=== PATIENT | female | born 1980 | race Caucasian/White ===

== ENCOUNTER 2022-12-07 11:35 | Emergency (ER) | payer OTHER, SELFPAY ==
[2022-12-07] VITALS (40 sets, daily range): BP systolic 130–189; BP diastolic 70–107; PULSE 87–105; RESP 7–25; TEMP 37.2; O2SAT 95–100; BMI 31.6
--- NOTE | 2022-12-07 12:06 | ED.NAVMDI1 ---
HPI - Nausea/Vomiting/Diarrhea General Chief complaint: Nausea/Vomiting/Diarrhea Stated complaint: NAUSEA Time Seen by Provider: 12/07/22 12:06 Source: patient Mode of arrival: Wheelchair Limitations: no limitations History of Present Illness HPI Narrative: This patient's here complaining and nausea starting at 5:30 this morning. She has not taken any medication for. She did stand a whole toe room last night with her son and her dog but she states that she is homeless. She missed about two or three days with of her routine meds because her life was in such chaos but she does have all of her meds. She has not checked her sugar recently. She's been very thirsty and hungry recently. She does not have any diarrhea. No other household members are ill. She did have a sandwich at work yesterday but didn't get ill until twenty-four hours later. Her son is not sick. She's not been running a fever. She is status post cholecystectomy. She has not had a fever that she is aware of. She did not have any medicine to take for the nausea. He does not use alcohol or any street drugs. No history of hepatitis or pancreatitis. Related Data Home Medications Medication Instructions Recorded Confirmed atorvastatin 80 mg tablet 80 mg PO BEDTIME 12/07/22 12/07/22 duloxetine 60 mg capsule,delayed 60 mg PO DAILY 12/07/22 12/07/22 release ergocalciferol (vitamin D2) 1,250 1,250 mcg PO .weekly 12/07/22 12/07/22 mcg (50,000 unit) capsule fluoxetine 20 mg capsule 20 mg PO DAILY 12/07/22 12/07/22 glipizide 10 mg tablet 10 mg PO BID 12/07/22 12/07/22 glipizide 5 mg tablet, extended 5 mg PO DAILY 12/07/22 12/07/22 release 24 hr insulin glargine 100 unit/mL (3 60 unit subcut DAILY 12/07/22 12/07/22 mL) subcutaneous pen (Lantus Solostar U-100 Insulin) lisinopril 40 mg tablet 40 mg PO DAILY 12/07/22 12/07/22 Allergies Allergy/AdvReac Type Severity Reaction Status Date / Time No Known Drug Allergies Allergy Verified 12/07/22 11:47 PFSH PFSH Social History Smoking status: Current every day smoker Exam Narrative Exam Narrative: vital signs are stable she appears in no obvious distress. Heart rate slightly elevated at ninety-four. Constitutional she has no evidence of scleral icterus pallor or anemia her skin is warm and dry. Neck is soft and supple no meningeal irritation. Cognition and mentation are normal. She has no respiratory distress her lungs are clear no wheezes rales or rhonchi heart sounds are normal. Her abdomen is benign with no peritoneal findings no guarding rebound rigidity or tenderness. Previous surgical incisions from cholecystectomy are noted. Extremities showed no evidence of edema phlebitis or cellulitis. Constitutional Vital Signs, click to edit/add: Last Vital Signs Temp 98.9 F 12/07/22 11:48 Pulse 94 H 12/07/22 11:52 Resp 19 12/07/22 11:52 BP 158/93 H 12/07/22 11:52 Pulse Ox 96 12/07/22 11:54 O2 Del Method Room Air 12/07/22 11:54 Course Vital Signs Vital signs: Vital Signs Pulse Rate 98 H 12/07/22 11:39 Respiratory Rate 18 12/07/22 11:39 Pulse Oximetry 97 12/07/22 11:39 Oxygen Delivery Method Room Air 12/07/22 11:39 Temperature 98.9 F 12/07/22 11:48 Pulse Rate 94 H 12/07/22 11:52 Respiratory Rate 19 12/07/22 11:52 Blood Pressure 158/93 H 12/07/22 11:52 Pulse Oximetry 96 12/07/22 11:54 Oxygen Delivery Method Room Air 12/07/22 11:54 MDM - Nausea/Vomiting/Diarrhea MDM Narrative Medical decision making narrative: she presents with nausea vomiting alteration of her blood sugar. She's been noncompliant with her regular medications. She tells me she has a history of elevation of her lipids and cholesterol and her serum and she is under treatment for that. She drinks a lot of diet pop. She had pretty severe pancreatitis when she had her gallbladder out but is not had ongoing severe attack since that time. She does have a primary care doctor in the community. She has not run out of her medications. Patient's treatment she was given 2 L of normal saline over approximate four hours while in the Emergency Room. Her lab she is making her serum was so lipemic that they had us send the blood work to [facility] and we did not get the results back until 1630 hrs. At that time her AST and MALT are normal. Her lipase 182. BUN/creatinine are twenty-two and 0.99. Electrolytes show slightly decreased CO2. The patient was given ten units regular insulin and at sixteen NR 1600 hrs. the blood glucose was four hundred. Because we'll place her on clear fluids I want her to take twenty units of her long-acting insulin tonight. Tomorrow she should also be on clear fluids and take approximately half the dose of her normal insulin. She is return if she doesn't improve. She understands that being more compliant is critically important with her diabetic management. Discharge Plan Discharge Chief Complaint: Nausea/Vomiting/Diarrhea Clinical Impression: Acute pancreatitis Patient Disposition: Home, Self-Care Time of Disposition Decision: 16:34 Prescriptions / Home Meds: No Action atorvastatin 80 mg tablet 80 mg PO BEDTIME duloxetine 60 mg capsule,delayed release(DR/EC) 60 mg PO DAILY ergocalciferol (vitamin D2) 1,250 mcg (50,000 unit) capsule 1,250 mcg PO .weekly glipizide 10 mg tablet 10 mg PO BID fluoxetine 20 mg capsule 20 mg PO DAILY glipizide 5 mg tablet extended release 24hr 5 mg PO DAILY insulin glargine [Lantus Solostar U-100 Insulin] 100 unit/mL (3 mL) insulin pen 60 unit SUBCUT DAILY lisinopril 40 mg tablet 40 mg PO DAILY Additional Instructions: clear fluids with no solid food for twenty-four hours. Return if worse. Zofran for nausea. Onnly take fifty percent of year nighttime insulin while you're not able to eat Stand Alone Forms: Portal Instructions Referrals: REYNALDO VILLA [Primary Care Provider] - 1 week
[2022-12-07] MEDS: 0.9 % SODIUM CHLORIDE 1,000 ML 999 ML IV (12:18)
[2022-12-07] MEDS: ONDANSETRON PF 4 MG/2 ML VIAL IV (12:18)
[2022-12-07 12:31] LABS: PCO2 VBG 38.8 mmHg (40.0-52.0); pH VBG 7.342 (7.330-7.430)
[2022-12-07 12:35] LABS: Basophils Absolute Auto 0.1 10^3/uL (0.0-0.1); Basophils Percent Auto 0.6 % (0.2-2.0); Eosinophils Percent Auto 0.1 % (0.9-7.0); Immature Granulocytes Abs Auto 0.06 10^3/uL (0.00-0.03); Immature Granulocytes Pct Auto 0.5 % (0.0-0.5); Lymphocytes Absolute Auto 1.2 10^3/uL (1.2-3.8); Lymphocytes Percent Auto 9.1 % (20.5-60.0); Monocytes Absolute Auto 0.4 10^3/uL (0.3-0.8); Monocytes Percent Auto 2.9 % (1.7-12.0); Neutrophils Absolute Auto 11.3 10^3/uL (1.4-6.5); Neutrophils Percent Auto 86.8 % (43.0-75.0); Platelet Count 440 10^3/uL (150-450); Red Cell Distribution Width 12.3 % (11.0-15.0)
[2022-12-07 13:10] LABS: Hematocrit 43.9 % (36.0-48.0); Hemoglobin 16.5 g/dL (12.0-16.0)
[2022-12-07 13:11] LABS: Mean Corpuscular HGB Conc 37.6 g/dL (29.9-35.2); Mean Corpuscular Hemoglobin 31.7 pg (26.7-34.0); Mean Corpuscular Volume 84.3 fL (81.0-99.0)
[2022-12-07 13:18] LABS: Troponin I High Sensitivity 52.5 pg/mL (4.0-51.3)
--- NOTE | 2022-12-07 13:22 | ECG_ITS ---
[facility] Test Date: 2022-12-07 Pat Name: CARLOS EDUARDO JHA Department: Room: - Gender: Female [employer] Server: : [id number] Requested By: Order Number: [id number] Reading MD: SIMEON BOBO Measurements Intervals [place] Rate: 94 P: 18 NM: 170 QRS: 95 QRSD: 84 T: 16 QT: 368 QTc: 420 Interpretive Statements 1100 Sinus rhythm 3234 Anteroseptal myocardial infarction, age undetermined Inferolateral ST/T wave changes, nonspecific but can't exclude myocardial ischemia without previous tracing for comparison 7102 Moderate right axis deviation Electronically Signed On 12-08-2022 11:06:33 EDT by SIMEON BOBO
[2022-12-07 14:01] LABS: Glucometer 502 mg/dL (74-106)
[2022-12-07] MEDS: INSULIN REGULAR 300 UNITS/3 ML 10 UNIT SUBQ (14:14)
[2022-12-07] MEDS: 0.9 % SODIUM CHLORIDE 1,000 ML 1000 ML IV (14:18)
[2022-12-07 14:58] LABS: Glucometer 458 mg/dL (74-106)
[2022-12-07 15:04] LABS: Bilirubin Urine NEGATIVE (NEGATIVE); Blood Urine MODERATE (NEGATIVE); Clarity Urine SL CLOUDY (CLEAR); Color Urine LT. YELLOW (YELLOW); Glucose Urine UA >=1000 mg/dL (NEGATIVE); Ketones Urine >=80 mg/dL (NEGATIVE); Leukocyte Esterase Urine NEGATIVE (NEGATIVE); Nitrite Urine NEGATIVE (NEGATIVE); Protein Urine >=300 mg/dL (NEG/TRACE); Urobilinogen Urine 0.2 EU/dL (0.2-1.0); pH Urine 5.5 (5.0-9.0)
[2022-12-07 15:17] LABS: Urine Microscopic Indicated YES
[2022-12-07 15:28] LABS: WBC Urine 0-2 #/HPF (NONE SEEN)
--- NOTE | 2022-12-07 15:28 | SWNOTE1 ---
SW did speak with nursing in regards to pt's home situation. Pt and son living in their car. They do stay at hotels [facility] here and there as well. They do have food in the car. Unsure if pt will have reason to be admitted or not at this time. Nursing in ER will give pt packet or resources before discharge if pt is discharged from ER.
[2022-12-07 15:29] LABS: Mucus Urine NONE SEEN (NONE SEEN); Squamous Epithelial Cell Urine MODERATE #/LPF (NONE/RARE)
[2022-12-07 15:31] LABS: Bacteria Urine NONE SEEN #/HPF (NONE SEEN); Crystals Seen? None Seen #/HPF (None Seen)
[2022-12-07 15:34] LABS: Cast Seen? SEEN #/LPF (NONE SEEN)
[2022-12-07 15:35] LABS: Hyaline Casts Urine FEW
[2022-12-07 15:36] LABS: Urine Culture Indicated NO
[2022-12-07] MEDS: 0.9 % SODIUM CHLORIDE 1,000 ML 100 ML IV (15:53)
[2022-12-07 16:09] LABS: Glucometer 404 mg/dL (74-106)
== END 2022-12-07 16:59 | disposition home or self-care (01) ==
PROVIDERS: Emergency Provider Emergency Medicine Emergency Medical Services; PCP Family Medicine
DX: K85.90 Acute pancreatitis without necrosis or infection, unspecified (principal); E11.9 Type 2 diabetes mellitus without complications; T50.916A Underdosing of multiple unspecified drugs, medicaments and biological substances, initial encounter; Z59.00 Homelessness unspecified; Z90.49 Acquired absence of other specified parts of digestive tract; Z79.899 Other long term (current) drug therapy; Z79.4 Long term (current) use of insulin; F17.210 Nicotine dependence, cigarettes, uncomplicated
CPT/HCPCS: 36415; 80053; 81001; 82800; 82948; 83690; 84484; 85025; 93005; 96361; 96374; 99285

== ENCOUNTER 2023-06-18 21:29 | Emergency (ER) | payer OTHER, SELFPAY ==
[2023-06-18 21:57] VITALS: BP 185/94; PULSE 94; RESP 18; TEMP 36.8; O2SAT 97; BMI 31.1
--- NOTE | 2023-06-18 22:36 | ED_ITS ---
HPI - Dental/Oral General Chief complaint: Dental/Oral Stated complaint: DENTAL Time Seen by Provider: 06/18/23 22:16 Source: patient Mode of arrival: walk-in Limitations: no limitations History of Present Illness HPI Narrative: patient states she had her tooth extracted 4 days ago. Developed swelling and has been taking Amoxicillin she had at home. Has not help. No fever or difficulty swallowing. Hurts to open her mouth . No headache Related Data Home Medications Medication Instructions Recorded Confirmed atorvastatin 80 mg tablet 80 mg PO BEDTIME 12/07/22 12/07/22 duloxetine 60 mg capsule,delayed 60 mg PO DAILY 12/07/22 12/07/22 release ergocalciferol (vitamin D2) 1,250 1,250 mcg PO .weekly 12/07/22 12/07/22 mcg (50,000 unit) capsule fluoxetine 20 mg capsule 20 mg PO DAILY 12/07/22 12/07/22 glipizide 10 mg tablet 10 mg PO BID 12/07/22 12/07/22 glipizide 5 mg tablet, extended 5 mg PO DAILY 12/07/22 12/07/22 release 24 hr insulin glargine 100 unit/mL (3 60 unit subcut DAILY 12/07/22 12/07/22 mL) subcutaneous pen (Lantus Solostar U-100 Insulin) lisinopril 40 mg tablet 40 mg PO DAILY 12/07/22 12/07/22 Allergies Allergy/AdvReac Type Severity Reaction Status Date / Time No Known Drug Allergies Allergy Verified 06/18/23 22:02 Review of Systems 2 ROS0 Status of ROS 10 or more systems reviewed and unremark able except as noted in history and below [facility] Social History Smoking status: Former smoker Exam Constitutional Vital Signs, click to edit/add: Last Vital Signs Temp 98.2 F 06/18/23 21:57 Pulse 81 06/18/23 23:34 Resp 16 06/18/23 23:34 BP 136/71 06/18/23 23:34 Pulse Ox 95 06/18/23 23:34 O2 Del Method Room Air 06/18/23 21:57 Common normals: average body habitus, oriented x3, no limitations, healthy appearing, alert and well nourished [facility] Face and sinus images: 2 1. swelling Other: oral pharynx clear. dental extraction site looks clean without swelling but is tender Eye Common normals: EOMs intact bilaterally and conjunctivae normal Respiratory Common normals: normal respiratory effort and no retractions Cardio Common normals: regular rate, regular rhythm, S1 normal heart sound and S2 normal heart sound Extremity Common normals: normal to inspection and full ROM Neuro Common normals: oriented x3, CN's II-XII intact bilaterally, moves all extremities and no focal motor deficits Psych Appearance: grossly normal Course Vital Signs Vital signs: Vital Signs Temperature 98.2 F 06/18/23 21:57 Pulse Rate 94 H 06/18/23 21:57 Respiratory Rate 18 06/18/23 21:57 Blood Pressure 185/94 H 06/18/23 21:57 Pulse Oximetry 97 06/18/23 21:57 Oxygen Delivery Method Room Air 06/18/23 21:57 Temperature 98.2 F 06/18/23 21:57 Pulse Rate 81 06/18/23 23:34 Respiratory Rate 16 06/18/23 23:34 Blood Pressure 136/71 06/18/23 23:34 Pulse Oximetry 95 06/18/23 23:34 Oxygen Delivery Method Room Air 06/18/23 21:57 MDM - Dental/Oral MDM Narrative Medical decision making narrative: tooth extracted 4 days ago. Developed post extraction swelling and patient started Amoxicillin she had at home. pain and swelling have increased. Presents here with dental abscess. Oral pharynx clear. No stridor or sensation of swelling in her throat. Treated with anti inflammatory and clindamycin. Feeling better now and resting. Discharged home with a prescription for clindamycin Lab Data Labs: Lab Results 06/18/23 Range/Units 22:50 WBC 9.8 (4.0-11.0) 10^3/uL RBC 4.06 L (4.20-5.40) 10^6/uL Hgb 12.1 (12.0-16.0) g/dL Hct 36.5 (36.0-48.0) % MCV 89.9 (81.0-99.0) fL MCH 29.8 (26.7-34.0) pg MCHC 33.2 (29.9-35.2) g/dL RDW 13.2 (11.0-15.0) % Plt Count 373 (150-450) 10^3/uL MPV 9.9 (9.5-13.5) fL Neut % (Auto) 70.3 (43.0-75.0) % Lymph % (Auto) 19.4 L (20.5-60.0) % [place] % (Auto) 8.5 (1.7-12.0) % Eos % (Auto) 1.1 (0.9-7.0) % Baso % (Auto) 0.5 (0.2-2.0) % Neut # (Auto) 6.9 H (1.4-6.5) 10^3/uL Lymph # (Auto) 1.9 (1.2-3.8) 10^3/uL [place] # (Auto) 0.8 (0.3-0.8) 10^3/uL Eos # (Auto) 0.1 (0.0-0.7) 10^3/uL Baso # (Auto) 0.1 (0.0-0.1) 10^3/uL Abs Immat Gran (auto) 0.02 (0.00-0.03) 10^3/uL Imm/Tot Granulo (auto) 0.2 (0.0-0.5) % Sodium 135 L (136-145) mmol/L Potassium 4.0 (3.5-5.1) mmol/L Chloride 103 (98-107) mmol/L Carbon Dioxide 28.1 (21.0-32.0) mmol/L Anion Gap 7.9 BUN 16.0 (7.0-18.0) mg/dL Creatinine 1.15 H (0.55-1.02) mg/dL Est GFR ( Amer) >60 (>=60) Est GFR (Non-Af Amer) 51 L (>=60) BUN/Creatinine Ratio 13.9 Glucose 208 H (74-106) mg/dL Calcium 8.2 L (8.5-10.1) mg/dL Discharge Plan Discharge Stand Alone Forms: Portal Instructions Chief Complaint: Dental/Oral Clinical Impression: Dental abscess Patient Disposition: Home, Self-Care Prescriptions / Home Meds: No Action atorvastatin 80 mg tablet 80 mg PO BEDTIME duloxetine 60 mg capsule,delayed release(DR/EC) 60 mg PO DAILY ergocalciferol (vitamin D2) 1,250 mcg (50,000 unit) capsule 1,250 mcg PO .weekly glipizide 10 mg tablet 10 mg PO BID fluoxetine 20 mg capsule 20 mg PO DAILY glipizide 5 mg tablet extended release 24hr 5 mg PO DAILY insulin glargine [Lantus Solostar U-100 Insulin] 100 unit/mL (3 mL) insulin pen 60 unit SUBCUT DAILY lisinopril 40 mg tablet 40 mg PO DAILY Instructions: Dental Abscess (ED) Additional Instructions: follow up with your dentist or return tomorrow for recheck. Stop Amoxicillin Referrals: REYNALDO VILLA [Primary Care Provider] - 1 week
[2023-06-18 23:03] LABS: Basophils Absolute Auto 0.1 10^3/uL (0.0-0.1); Basophils Percent Auto 0.5 % (0.2-2.0); Eosinophils Absolute Auto 0.1 10^3/uL (0.0-0.7); Eosinophils Percent Auto 1.1 % (0.9-7.0); Hematocrit 36.5 % (36.0-48.0); Hemoglobin 12.1 g/dL (12.0-16.0); Immature Granulocytes Abs Auto 0.02 10^3/uL (0.00-0.03); Immature Granulocytes Pct Auto 0.2 % (0.0-0.5); Lymphocytes Absolute Auto 1.9 10^3/uL (1.2-3.8); Lymphocytes Percent Auto 19.4 % (20.5-60.0); Mean Corpuscular HGB Conc 33.2 g/dL (29.9-35.2); Mean Corpuscular Hemoglobin 29.8 pg (26.7-34.0); Mean Corpuscular Volume 89.9 fL (81.0-99.0); Mean Platelet Volume 9.9 fL (9.5-13.5); Monocytes Absolute Auto 0.8 10^3/uL (0.3-0.8); Monocytes Percent Auto 8.5 % (1.7-12.0); Neutrophils Absolute Auto 6.9 10^3/uL (1.4-6.5); Neutrophils Percent Auto 70.3 % (43.0-75.0); Platelet Count 373 10^3/uL (150-450); Red Blood Count 4.06 10^6/uL (4.20-5.40); Red Cell Distribution Width 13.2 % (11.0-15.0); White Blood Count 9.8 10^3/uL (4.0-11.0)
[2023-06-18] MEDS: CLINDAMYCIN PHOSPHATE/D5W 900 MG/50 ML PIGGYBACK 100 MG IV (23:03)
[2023-06-18] MEDS: KETOROLAC TROMETHAMINE 30 MG/ML VIAL IVP (23:04)
[2023-06-18] MEDS: METHYLPREDNISOLONE SOD SUCC PF 125 MG/2 ML VIAL IVP (23:04)
[2023-06-18 23:12] LABS: Anion Gap 7.9; BUN Creatinine Ratio 13.9; Calcium 8.2 mg/dL (8.5-10.1); Carbon Dioxide 28.1 mmol/L (21.0-32.0); Chloride 103 mmol/L (98-107); Estimated GFR (African America >60 (>=60); Estimated GFR (Non-African Ame 51 (>=60); Glucose 208 mg/dL (74-106); Sodium 135 mmol/L (136-145)
[2023-06-18 23:34] VITALS: BP 136/71; PULSE 81; RESP 16; O2SAT 95
[2023-06-19] MEDS: CLINDAMYCIN HCL 150 MG CAPSULE 300 MG PO (00:05)
== END 2023-06-19 00:08 | disposition home or self-care (01) ==
PROVIDERS: Emergency Provider Internal Medicine; PCP Family Medicine
DX: K04.7 Periapical abscess without sinus (principal); Z79.899 Other long term (current) drug therapy; Z79.4 Long term (current) use of insulin; Z87.891 Personal history of nicotine dependence
CPT/HCPCS: 36415; 80048; 85025; 96365; 96375; 99284; J2930

== ENCOUNTER 2023-06-20 12:52 | Emergency (ER) | payer OTHER, SELFPAY ==
[2023-06-20 12:57] VITALS: BP 191/93; PULSE 91; RESP 20; TEMP 36.7; O2SAT 98; BMI 31.1
--- OUTSIDE RECORDS SUMMARY | 2023-06-20 13:17 | XMS_ITS | CCD ---
Author Name Unknown Address [address] [place] [address] Organization [facility] Care Team Providers Care Senior Software Manager Name Role Phone RICKEY WHEELER Admitting Unavailable LIAMRICKEY BECK Attending Unavailable REYNALDO VU Consulting Unavailable TIMMIS, ULYSSES Admitting Unavailable TIMMIS, ULYSSES Attending Unavailable REYNALDO VU Primary Care Unavailable TIMMIS, ULYSSES Consulting Unavailable TIMMIS, ULYSSES Admitting Unavailable TIMMIS, ULYSSES Attending Unavailable REYNALDO VU Primary Care Unavailable TIMMIS, ULYSSES Consulting Unavailable AGUBOSIM, ALLIE Consulting Unavailable LONG, BRYAN Consulting Unavailable Reynaldo Vu Primary Care Provider INDURTI, DIEGO V Admitting Unavailable INDURTI, DIEGO V Attending Unavailable REYNALDO VU Primary Care Unavailable DARYL, RUTH Consulting Unavailable Reynaldo Vu Primary Care Provider [phone] Reynaldo Vu Primary Care Provider Anh Lake DO Primary Care Provider Rico Cortez MD Primary Care Provider [phone] Rico Cortez MD Primary Care Provider [phone] ANH [place] Primary Care Unavailable RANDALL DE LA GARZA Attending Unavailable IACOB, RICO Primary Care Unavailable IACOB, RICO Referring Unavailable IACOB, RICO Primary Care Unavailable ANTONIO CUETO Referring Unavailable IACOB, RICO Primary Care Unavailable ANTONIO CUETO Referring Unavailable IACOB, RICO Referring Unavailable IACOB, RICO Primary Care Unavailable REYNALDO VU Primary Care Unavailable MICHELLE WELLS Attending Unavailable MICHELLE WELLS Admitting Unavailable REYNALDO VU Primary Care Unavailable CATRACHITA OLIVARES Attending Unavailable MD Jaun Sanon Attending Provider DO Anh Lake Primary Care Provider [phone] DO Anh Lake Primary Care Provider [phone] Florencio Salvador Attending Provider [phone] Jaun Sanon Admitting Unavailable Jaun Sanon Attending Unavailable Anh Lake Primary Care Unavailable Florencio Salvador Admitting Unavailable Florencio Salvador Attending Unavailable Reynaldo Vu Primary Care Unavailable Jaun Sanon Admitting Unavailable Jaun Sanon Attending Unavailable Anh Lake Primary Care Unavailable Jaun Sanon Admitting Unavailable Jaun Sanon Attending Unavailable Anh Lake Primary Care Unavailable PUMP, YUSUF L Referring Unavailable ANH LAKE Primary Care Unavailable ANH LAKE Primary Care Unavailable ROSEMARY ESTRADA Attending Unav ailable ANH LAKE Primary Care Unavailable Allergies Allergy Classification Reported Allergen(s) Allergy Type Date of Onset Reaction(s) Facility (4 sources) fluticasone Drug Allergy 04-17-[address] [facility] Medications Current Medications Medication Drug Class(es) Dates Sig (Normalized) Sig (Original) Acetaminophen (2 sources) Start: 11-19-2020 acetaminophen (TYLENOL) tablet 650 mg Start: 03-17-2020 acetaminophen (TYLENOL) tablet 650 mg amLODIPine 5 mg oral tablet (6 sources) Dihydropyridine Calcium Channel Lucas Start: 06-20-2021 End: 07-29-2021 take 1 tablet by mouth once daily amLODIPine (NORVASC) 5 MG tablet Indications: Primary hypertension Take 1 tablet by mouth daily 90 tablet 0 06/29/2021 Active Start: 11-21-2020 take 1 tablet by jazmyne th once daily amLODIPine (NORVASC) 10 MG tablet Take 1 tablet by mouth daily 30 tablet 0 11/21/2020 Active Start: 11-20-2020 End: 11-21-2020 take 1 tablet by mouth once daily amLODIPine (NORVASC) 5 MG tablet Take 1 tablet by mouth daily 30 tablet 3 11/21/2020 11/21/2020 Discontinued atorvastatin 20 mg oral tablet (8 sources) HMG-CoA Reductase Inhibitor Start: 04-10-2022 take 1 mg by mouth once daily in the evening Atorvastatin Active MG PO Every evening April 10, 2022 1:00am pt unsure of dose Start: 06-29-2021 take 1 tablet by jazmyne th once daily atorvastatin (LIPITOR) 80 MG tablet Indications: Hypertriglyceridemia Take 1 tablet by mouth daily 90 tablet 0 06/29/2021 Active Start: 06-20-2021 take 1 tablet by jazmyne th once daily atorvastatin (LIPITOR) 80 MG tablet Take 1 tablet by mouth daily 30 tablet 0 06/20/2021 Active canagliflozin 100 mg oral tablet (17 sources) Sodium-Glucose Cotransporter 2 Inhibitor Start: 04-10-2022 take 1 tablet by mouth once daily in the evening Canagliflozin (Invokana) 100 mg Tablet Active 100 MG PO Every evening April 10, 2022 1:00am Start: 06-29-2021 take 1 tablet by jazmyne th once daily before breakfast canagliflozin (INVOKANA) 300 MG TABS tablet Take 1 tablet by mouth every morning (before breakfast) 90 tablet 1 07/30/2021 Active Start: 06-29-2021 take 3 tablets by mo uth once daily before breakfast canagliflozin (INVOKANA) 100 MG TABS tablet Indications: Type 2 diabetes mellitus with other specified complication, unspecified whether intermediate accountant insulin use (HCC) Take 3 tablets by mouth every morning (before breakfast) 90 tablet 0 06/29/2021 Active Start: 03-17-2020 take 100 mg by mouth once daily before breakfast 100 mg, Oral, DAILY BEFORE BREAKFAST, First dose on Janay 03/17/20 at 0700 diclofenac sodium 0.01 mg/mg topical gel (3 sources) Nonsteroidal Anti-inflammatory Drug Start: 07-13-2021 diclofenac sodium (VOLTAREN) 1 % GEL Indications: Left hip pain , Right hip pain Apply 4 g topically 4 times daily 350 g 1 07/13/2021 Active docosahexaenoic acid 1000 mg / omega-3 acid ethyl esters (jail) 300 mg delayed release oral capsule (3 sources) take 1000 mg by mouth once daily [place]-3 Fatty Acids (FISH OIL) 1000 MG CPDR Take 1,000 mg by mouth daily 0 Active docusate sodium 100 mg oral capsule (3 sources) Start: 11-19-2020 take 100 mg by mouth twice daily as needed for constipation 100 mg, Oral, 2 TIMES DAILY PRN, Constipation, Starting on 11/19/20 at 1515 Do not crush or break. DULoxetine 60 mg delayed release oral capsule (16 sources) Serotonin and Norepinephrine Reuptake Inhibitor Start: 04-10-2022 take 60 mg by mouth once daily in the evening Duloxetine Active 60 MG PO Every evening April 10, 2022 1:00am Start: 03-17-2020 take 1 capsule by mo ut once daily 60 mg, Oral, DAILY, First dose on 11/19/20 at 1545 Do not crush or break. May add contents of capsule to apple juice or apple sauce, but not chocolate. 2 ml enalaprilat 1.25 mg/ml injection (1 source) Angiotensin Converting Enzyme Inhibitor Start: 11-20-2020 enalaprilat (VASOTEC) injection 1.25 mg 0.4 ml enoxaparin sodium 100 mg/ml prefilled syringe (2 sources) Low Molecular Weight Heparin Start: 11-19-2020 inject 40 mg by subcutaneous injection once daily 40 mg, Subcutaneous, DAILY, First dose on 11/19/20 at 1545 Start: 03-17-2020 inject 40 mg by subc utaneous injection once daily 40 mg, Subcutaneous, DAILY, First dose on [facility] 03/17/20 at 0900 ergocalciferol 1.25 mg oral capsule (6 sources) Provitamin D2 Compound Start: 04-10-2022 take 13851 [IU] by mouth every week Ergocalciferol (Vitamin D2) Active 84842 UNIT PO every week April 10, 2022 1:00am Start: 06-30-2021 take 1 capsule by mo uth every week vitamin D (ERGOCALCIFEROL) 1.25 MG (95282 UT) CAPS capsule Indications: Hypovitaminosis D Take 1 capsule by mouth once a week 12 capsule 0 06/30/2021 Active fenofibrate 150 mg oral capsule (15 sources) Peroxisome Proliferator Receptor alpha Agonist Start: 04-10-2022 take 1 mg by mouth once daily in the evening Fenofibrate Active MG PO Every evening April 10, 2022 1:00am pt unsure of dose Start: 06-29-2021 take 1 tablet by jazmyne once daily fenofibrate (TRIGLIDE) 160 MG tablet Indications: Hypertriglyceridemia Take 1 tablet by mouth daily 90 tablet 0 06/29/2021 Active Start: 11-20-2020 fenofibrate (T RIGLIDE) tablet 160 mg fenofibrate micr onized (LOFIBRA) 134 MG capsule Take 200 mg by mouth every morning (before breakfast) 0 Active take 1 capsule by mo uth once daily before breakfast fenofibrate micronized (LOFIBRA) 134 MG capsule Take 134 mg by mouth every morning (before breakfast) 0 Active FLUoxetine 40 mg oral capsule (6 sources) Serotonin Reuptake Inhibitor Start: 04-10-2022 take 1 mg by mouth once daily in the evening Fluoxetine (Prozac) 40 mg Capsule Active MG PO Every evening April 10, 2022 1:00am pt unsure of dose Start: 07-10-2021 take 1 capsule by mo ut once daily FLUoxetine (PROZAC) 20 MG capsule Indications: PMDD (premenstrual dysphoric disorder) Take 1 capsule by mouth daily 30 capsule 5 07/10/2021 Active glucagon (rdna) 1 mg injection (2 sources) Antihypoglycemic Agent Start: 11-19-2020 take 1 mL intravenously every hour 1 mg, Intramuscular, PRN, Low blood sugar, Blood glucose less than 70 mg/dL and patient NOT ALERT or NPO and does not have IV access., Starting on 11/19/20 at 1517 After administration, attempt intravenous access and start D5W at 100 mL/hr. Repeat blood glucose in 15 minutes x2 and notify provider. Start: 03-17-2020 take 1 mL intravenou s route every hour 1 mg, Intramuscular, PRN, Low blood sugar, Blood glucose less than 70 mg/dL and patient NOT ALERT or NPO and does not have IV access., Starting Janay 03/17/20 at 0629 After administration, attempt intravenous access and start D5W at 100 mL/hr. Repeat blood glucose in 15 minutes x2 and notify provider. 150 ml glucose 50 mg/ml injection (6 sources) Start: 11-19-2020 15 g, Oral, [place] N, Low blood sugar, Starting on 11/19/20 at 1517 If blood glucose less than 50 mg/dL and patient ALERT and TOLERATING PO, give 2 tubes glucose gel. If blood glucose less than 70 mg/dL and patient ALERT and TOLERATING PO, give 1 tube glucose gel. Repeat blood glucose in 15 minutes. If blood glucose is less than 70 mg/dL, repeat treatment and recheck blood glucose in 15 minutes x2 and notify provider. Start: 11-19-2020 12.5 g, Intrav enous, PRN, Low blood sugar, Blood glucose less than 70 mg/dL and patient NOT ALERT or NPO., Starting on 11/19/20 at 1517 If patient does not respond within 5 minutes, repeat dose x1. Start D5W at 100 mL/hour until ordering provider can be reached. Repeat blood glucose in 15 minutes. If blood glucose is less than 70 mg/dL, repeat treatment and recheck blood glucose in 15 minutes x2. If using Glucostabilizer, dose as instructed per system. Start: 11-19-2020 100 mL/hr, Int ravenous, at 100 mL/hr, PRN, Low blood sugar, Starting on 11/19/20 at 1517 Start infusion following administration of dextrose 50% or glucagon. Start: 03-17-2020 12.5 g, Intrav enous, PRN, Low blood sugar, Blood glucose less than 70 mg/dL and patient NOT ALERT or NPO., Starting Janay 03/17/20 at 0629 If patient does not respond within 5 minutes, repeat dose x1. Start D5W at 100 mL/hour until ordering provider can be reached. Repeat blood glucose in 15 minutes. If blood glucose is less than 70 mg/dL, repeat treatment and recheck blood glucose in 15 minutes x2. If using Glucostabilizer, dose as instructed per system. Start: 03-17-2020 100 mL/hr, Int ravenous, at 100 mL/hr, PRN, Low blood sugar, Starting Janay 03/17/20 at 0629 Start infusion following administration of dextrose 50% or glucagon. Start: 03-17-2020 15 g, Oral, [place] N, Low blood sugar, Starting Janay 03/17/20 at 0629 If blood glucose less than 50 mg/dL and patient ALERT and TOLERATING PO, give 2 tubes glucose gel. If blood glucose less than 70 mg/dL and patient ALERT and TOLERATING PO, give 1 tube glucose gel. Repeat blood glucose in 15 minutes. If blood glucose is less than 70 mg/dL, repeat treatment and recheck blood glucose in 15 minutes x2 and notify provider. ibuprofen 600 mg oral tablet (5 sources) Nonsteroidal Anti-inflammatory Drug Start: 04-10-2022 take 600 mg by mouth every six hours Ibuprofen Active 600 MG PO Q6H April 10, 2022 1:00am Start: 05-09-2020 take 1 tablet by jazmyne th four times daily as needed for pain ibuprofen (ADVIL;MOTRIN) 600 MG tablet Take 1 tablet by mouth 4 times daily as needed for Pain 30 tablet 1 05/09/2020 Active icosapent ethyl 1000 mg oral capsule (4 sources) Start: 06-29-2021 Icosapent Ethy l (VASCEPA) 1 g CAPS capsule Indications: Hypertriglyceridemia Take 2 capsules by mouth 2 times daily 60 capsule 3 06/29/2021 Active 3 ml insulin glargine 100 unt/ml pen injector (17 sources) Insulin Analog Start: 04-10-2022 Insulin Glargi ne (Lantus Solostar U-100 Insulin) 100 unit/mL (3 mL) insulin pen Active 73 UNIT SUBCUT Daily at bedtime April 10, 2022 1:00am Start: 07-13-2021 insulin glargi ne (LANTUS SOLOSTAR) 100 UNIT/ML injection pen Indications: Type 2 diabetes mellitus with other specified complication, unspecified whether intermediate accountant insulin use (HCC) Inject 65 Units into the skin nightly 6 pen 0 07/13/2021 Active Start: 06-20-2021 insulin glargi ne (LANTUS SOLOSTAR) 100 UNIT/ML injection pen Inject 60 Units into the skin nightly 6 pen 0 06/20/2021 Active Start: 11-19-2020 inject 40 [IU] by be bcutaneous injection once daily 40 Units, Subcutaneous, NIGHTLY, First dose on 11/19/20 at 2100 Start: 03-18-2020 insulin glargi ne (LANTUS SOLOSTAR) 100 UNIT/ML injection pen Inject 60 Units into the skin nightly 6 pen 0 03/18/2020 Active Start: 03-17-2020 inject 60 [IU] by be bcutaneous injection once daily 60 Units, Subcutaneous, NIGHTLY, First dose on Janay 03/17/20 at 2100 Start: 03-03-2019 End: 03-18-2020 insulin glargine (LANTUS) 10 0 UNIT/ML injection vial Inject 60 Units into the skin nightly Please dispense pen with needles. 1 vial 0 03/03/2019 03/18/2020 Discontinued (Stop Taking at Discharge) insulin lispro 100 unt/ml injectable solution (6 sources) Insulin Analog Start: 11-19-2020 0-9 Units, Subcutaneous, NIG HTLY, First dose on 11/19/20 at 2100 If continuous tube feedings/TPN/NPO, give correction dose based on result, no reduction in dose. If eating or bolus tube feeding: High Dose Bedtime Correction Algorithm Glucose: Dose: 70-139 No Insulin 140-199 2 Units 200-249 3 Units 250-299 5 Units 300-349 6 Units 350-399 7 Units 400 and above 9 Units Start: 11-19-2020 0-18 Units, Be bcutaneous, 3 TIMES DAILY WITH MEALS, First dose on 11/19/20 at 1700 High Dose Correction Algorithm Glucose: Dose: 70-139 No Insulin 140-199 3 Units 200-249 6 Units 250-299 9 Units 300-349 12 Units 350-399 15 Units 400 and above 18 Units Start: 03-17-2020 0-9 Units, Sub cutaneous, NIGHTLY, First dose on Janay 03/17/20 at 2100 If continuous tube feedings/TPN/NPO, give correction dose based on result, no reduction in dose. If eating or bolus tube feeding: High Dose Corrective Algorithm Glucose: Dose: 70-139 &nbsp ; No Insulin 140-199 &nbsp ; 2 Units 200-249 3 Units 250-299 5 Units 300-349 6 Units 350-400 7 Units Over 400 9 Units Start: 03-17-2020 0-18 Units, Be bcutaneous, 3 TIMES DAILY WITH MEALS, First dose on Janay 03/17/20 at 0800 High Dose Corrective Algorithm Glucose: Dose: 70-139 &nbsp ; No Insulin 140-199 &nb sp; 3 Units 200-249 6 Units 250-299 9 Units 300-349 12 Units 350-400 15 Units Over 400 18 Units Start: 01-15-2020 End: 01-15-2020 insulin lispro (HUMALOG) inj ection vial 20 Units Start: 03-01-2019 End: 03-01-2019 insulin lispro (HUMALOG) inj ection vial 15 Units 1 ml ketorolac tromethamine 15 mg/ml cartridge (2 sources) Nonsteroidal Anti-inflammatory Drug, Cyclooxygenase Inhibitor Start: 11-19-2020 End: 11-25-2020 ketorolac (TORADOL) injection 15 mg lidocaine 0.04 mg/mg medicated patch (2 sources) Antiarrhythmic, Amide Local Anesthetic Start: 07-13-2021 End: 08-12-2021 apply 1 dose transdermal route once daily lidocaine 4 % external patch Indications: Left hip pain , Right hip pain Place 1 patch onto the skin daily 30 patch 0 07/13/2021 08/12/2021 Active lisinopril 20 mg oral tablet (19 sources) Angiotensin Converting Enzyme Inhibitor Start: 04-10-2022 take 20 mg by mouth once daily in the evening Lisinopril Active 20 MG PO Every evening April 10, 2022 1:00am Start: 06-29-2021 End: 07-29-2021 take 1 tablet by mouth once daily lisinopril (PRINIVIL;ZESTRIL) 40 MG tablet Indications: Primary hypertension Take 1 tablet by mouth daily 90 tablet 0 06/29/2021 Active Start: 06-20-2021 End: 06-30-2021 take 2 tablets by mouth once daily lisinopril (PRINIVIL;ZESTRIL) 20 MG tablet Take 2 tablets by mouth daily for 10 days 10 tablet 0 06/20/2021 06/30/2021 Active Start: 11-22-2020 End: 12-22-2020 take 1 tablet by mouth once daily lisinopril (PRINIVIL;ZESTRIL) 20 MG tablet Take 1 tablet by mouth daily 30 tablet 0 11/22/2020 12/22/2020 Active Start: 11-21-2020 End: 11-22-2020 take 4 tablets by mouth once daily lisinopril (PRINIVIL;ZESTRIL) 5 MG tablet Take 4 tablets by mouth daily 30 tablet 0 11/21/2020 11/22/2020 Discontinued (REORDER) Start: 03-04-2019 End: 11-21-2020 take 5 mg by mouth once daily 5 mg, Oral, DAILY, First dose on 11/19/20 at 1545 metFORMIN hydrochloride 1000 mg oral tablet (14 sources) Biguanide Start: 06-29-2021 take 1 tablet by mouth twice daily at mealtime metFORMIN (GLUCOPHAGE) 1000 MG tablet Indications: Type 2 diabetes mellitus with other specified complication, unspecified whether jail insulin use (HCC) Take 1 tablet by mouth 2 times daily (with meals) Patient states she takes 1,000 MG 180 tablet 0 06/29/2021 Active Start: 06-20-2021 take 2 tablets by mo uth twice daily at mealtime metFORMIN (GLUCOPHAGE) 500 MG tablet Take 2 tablets by mouth 2 times daily (with meals) 60 tablet 0 06/20/2021 Active Start: 11-19-2020 take 1000 mg by mout h twice daily at mealtime 1,000 mg, Oral, 2 TIMES DAILY WITH MEALS, First dose on 11/19/20 at 1700 Start: 03-17-2020 take 1000 mg by mout h twice daily at mealtime 1,000 mg, Oral, 2 TIMES DAILY WITH MEALS, First dose on Janay 03/17/20 at 0800 take 2 tablets by mo ndh twice daily at mealtime metFORMIN (GLUCOPHAGE) 500 MG tablet Take 1,000 mg by mouth 2 times daily (with meals) 0 Active take 1 tablet by jazmyne twice daily at mealtime metFORMIN (GLUCOPHAGE) 500 MG tablet Take 500 mg by mouth 2 times daily (with meals) 0 Active 24 hr metoprolol succinate 25 mg extended release oral tablet (8 sources) beta-Adrenergic Lucas Start: 06-29-2021 take 1 tablet by mouth once daily metoprolol succinate (TOPROL XL) 25 MG extended release tablet Indications: Primary hypertension Take 1 tablet by mouth daily 90 tablet 0 06/29/2021 Active Start: 06-20-2021 take 1 tablet by jazmyne once daily metoprolol succinate (TOPROL XL) 25 MG extended release tablet Take 1 tablet by mouth daily 30 tablet 0 06/20/2021 Active Start: 11-21-2020 take 1 tablet by jazmyne once daily metoprolol succinate (TOPROL XL) 25 MG extended release tablet Take 1 tablet by mouth daily 30 tablet 3 11/21/2020 Active Start: 11-19-2020 metoprolol (LO PRESSOR) injection 5 mg omega-3 acid ethyl esters (jail) 1000 mg oral capsule (1 source) Start: 11-20-2020 take 1000 mg by mouth once daily 1,000 mg, Oral, DAILY, First dose on 11/20/20 at 0900 [place]-3 Fatty Acids (FISH OIL) 1000 MG CPDR (3 sources) take 1000 mg by mouth once daily [place]-3 Fatty Acids (FISH OIL) 1000 MG CPDR Take 1,000 mg by mouth daily 0 Active 2 ml ondansetron 2 mg/ml injection (1 source) Serotonin-3 Receptor Antagonist Start: 03-17-2020 4 mg, Intravenous, EVERY 6 HOURS PRN, Nausea, Vomiting, Starting Janay 03/17/20 at 0628 ondansetron (ZOFRAN-ODT) disintegrating tablet 4 mg (1 source) Start: 11-19-2020 ondansetron (ZOFRAN-ODT) disintegrating tablet 4 mg piperacillin-tazoba ctam (ZOSYN) 3.375 g in dextrose 5 % 50 mL IVPB extended infusion (mini-bag) (1 source) Start: 03-17-2020 3.375 g, Intravenous, at 12.5 mL/hr, Administer over 4 Hours, EVERY 8 HOURS, First dose on Janay 03/17/20 at 0700 polyethylene glycol 3350 30474 mg powder for oral solution (1 source) Osmotic Laxative Start: 03-17-2020 17 g, Oral, DAILY PRN, Constipation, Starting Janay 03/17/20 at 0627 First line therapy for constipation 3 ml sodium chloride 9 mg/ml injection (8 sources) Start: 11-19-2020 take 1 dose intravenously twice daily 5-40 mL, Intravenous, EVERY 12 HOURS SCHEDULED (2 times per day), First dose on 11/19/20 at 2100 For Line Patency: Peripheral IV = 5 mL; Midline or Central Line = 10 mL/lumen. &nb sp;If following IV push medication, administer flush at same rate as the IV push. Flush volume is determined by type of infusion therapy being given. For non-viscous solutions use: Peripher al IV = 5 mL Midline or Central Line = 10 mL/lumen &nbs p;For viscous solutions (i.e. blood components, parenteral nutrition, contrast media, or after obtaining blood sample) use: Peripher al IV = 10 mL Midline or Central Line = 20 mL/lumen Start: 11-19-2020 End: 11-20-2020 Intravenous, at 150 mL/hr, CONTINUOUS, Starting on 11/19/20 at 1545 Start: 11-19-2020 take 25 mL intraveno usly every hour as needed 25 mL, Intravenous, at 100 mL/hr, PRN, If patient receiving piggyback infusions without ordered maintenance IV fluids or with frequent/long duration piggyback infusions, Starting on 11/19/20 at 1517 Administer at the same rate as the piggyback being infused. Start: 11-19-2020 End: 11-19-2020 0.9 % sodium chloride bolus Start: 03-17-2020 10 mL, Intrave nous, EVERY 12 HOURS SCHEDULED (2 times per day), First dose on Janay 03/17/20 at 0900 Start: 03-17-2020 Intravenous, a t 125 mL/hr, CONTINUOUS, Starting Janay 03/17/20 at 0700 Start: 03-17-2020 take 10 mL intraveno us route once as needed 10 mL, Intravenous, PRN, Line Care, After every IV line use, Starting [facility] 03/17/20 at 0627 Start: 03-17-2020 End: 03-17-2020 0.9 % sodium chloride bolus sulfamethoxazole 800 mg / trimethoprim 160 mg oral tablet (1 source) Dihydrofolate Reductase Inhibitor Antibacterial, Sulfonamide Antimicrobial Start: 03-18-2020 End: 03-25-2020 take 1 tablet by mouth twice daily sulfamethoxazole-trimethoprim (BACTRIM DS) 800-160 MG per tablet Take 1 tablet by mouth 2 times daily for 7 days 14 tablet 0 03/18/2020 03/25/2020 Active tiZANidine 4 mg oral tablet (3 sources) Central alpha-2 Adrenergic Agonist Start: 05-09-2020 take 4 mg by mouth every eight hours as needed for pain 4 mg, Oral, EVERY 8 HOURS PRN, muscle pain and cramping/stiffness, Starting on [facility] 11/19/20 at 1516 valACYclovir 500 mg oral tablet (10 sources) Herpesvirus Nucleoside Analog DNA Polymerase Inhibitor, Herpes Simplex Virus Nucleoside Analog DNA Polymerase Inhibitor, Herpes Zoster Virus Nucleoside Analog DNA Polymerase Inhibitor Start: 04-10-2022 take 500 mg by mouth once daily in the evening Valacyclovir Active 500 MG PO Every evening April 10, 2022 1:00am Start: 06-29-2021 take 1 tablet by jazmyne th once daily valACYclovir (VALTREX) 500 MG tablet Indications: Genital herpes simplex, unspecified site Take 1 tablet by mouth daily 30 tablet 1 06/29/2021 Active take 1 tablet by jazmyne th once daily valACYclovir (VALTREX) 500 MG tablet Take 500 mg by mouth daily 0 Active take 1 tablet by jazmyne th twice daily valACYclovir (VALTREX) 500 MG tablet Take 500 mg by mouth 2 times daily 0 Active Completed/Discontinued Medications Medication Drug Class(es) Dates Sig (Normalized) Sig (Original) cefepime (MAXIPIME) 1 g IVPB minibag (1 source) Start: 03-17-2020 End: 03-17-2020 cefepime (MAXIPIME) 1 g IVPB minibag empagliflozin 10 mg oral tablet (4 sources) Sodium-Glucose Cotransporter 2 Inhibitor End: 03-17-2020 take 1 tablet by mouth once daily empagliflozin (JARDIANCE) 10 MG tablet Take 10 mg by mouth daily 0 03/17/2020 Discontinued (LIST CLEANUP) 4 ml furosemide 10 mg/ml injection (1 source) Loop Diuretic Start: 11-21-2020 End: 11-21-2020 furosemide (LASIX) injection 20 mg gabapentin 600 mg oral tablet (1 source) Anti-epileptic Agent End: 03-03-2019 take 1 tablet by mouth three times daily gabapentin (NEURONTIN) 600 MG tablet Take 600 mg by mouth 3 times daily. 0 03/03/2019 Discontinued (Stop Taking at Discharge) gemfibrozil 600 mg oral tablet (2 sources) Peroxisome Proliferator Receptor alpha Agonist End: 11-21-2020 take 1 tablet by mouth twice daily gemfibrozil (LOPID) 600 MG tablet Take 600 mg by mouth 2 times daily 0 11/21/2020 Discontinued (Stop Taking at Discharge) 1 ml hydrALAZINE hydrochloride 20 mg/ml injection (2 sources) Arteriolar Vasodilator Start: 11-19-2020 End: 11-19-2020 hydrALAZINE (APRESOLINE) injection 5 mg Start: 03-17-2020 End: 03-17-2020 hydrALAZINE (APRESOLINE) inj ection 10 mg 3 ml liraglutide 6 mg/ml pen injector (5 sources) GLP-1 Receptor Agonist End: 03-17-2020 Liraglutide (VICTOZA) 18 MG/3ML SOPN SC injection Inject 1.8 mg into the skin daily 0 03/17/2020 Discontinued (LIST CLEANUP) Liraglutide (LINDA TOZA) 18 MG/3ML SOPN SC injection Inject 1.2 mg into the skin daily 0 Active metroNIDAZOLE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 eGFR calculated using average adult body mass. Additional eGFR calculator available at: http://[email or web address].MedPro/multiple_crcl_2011.htm Performed By: #### C MARK, CDP #### [address] [place] [address] Laboratory Coordinator: Oc Bay MD #### GLYHGB #### [address] [place], [place] [id number] Laboratory Coordinator: Jonathan Stewart MD Protein [Mass/Vol] 6.4 g/dL Normal 6.4-8.[address] [facility] Comment on above: Performed By: #### C YIMIX, CDP #### [facility] [address] [place] [address] Laboratory Coordinator: Oc Bay MD #### GLYHGB #### [address] [facility] [place] [address] Laboratory Coordinator: Jonathan Stewart MD Lipid Profileon 10-31-2021 Cholesterol,LDL Normal 0-130 [facility] Comment on above: Result Comment: Calc ulation not valid for Triglyceride value greater than 400 mg/dL. Direct LDL reflexed LDL Guidelines: <100 Desirable 100-129 Near to/above Desirable 130-159 Borderline >159 Undesirable Direct (measured) LDL and calculated LDL are not interchangeable tests. Performed By: #### I NICKY CMPX, CDP #### [address] [place] [address] Laboratory Coordinator: Oc Bay MD Triglyceride [Mass/Vol] 3390 mg/dL High <150 [facility] Comment on above: Result Comment: Triglyceride Guidelines: <150 Desirable 150-199 Borderline 200-499 High >499 Very high Based on AHA Guidelines for fasting triglyceride, January 2012. Performed By: #### I LAY SAUNDERS, CDP #### [address] [place] [address] Laboratory Coordinator: Oc Bay MD Cholesterol [Mass/Vol] 693 mg/dL High <200 [facility] Comment on above: Result Comment: Cholesterol Guidelines: <200 Desirable 200-240 Borderline >240 Undesirable Performed By: #### I PF, CMPX, CDP #### [address] [place] [address] Laboratory Coordinator: Oc Bay MD Cholesterol in HDL [Mass/Vol] 15 mg/dL Low >[address] [facility] Comment on above: Result Comment: HDL Guidelines: <40 Undesirable 40-59 Borderline >59 Desirable Performed By: #### I PF, CMPX, CDP #### [address] [place] [address] Laboratory Coordinator: Oc Bay MD Cholesterol.total/Adelaida sterol in HDL [Mass ratio] 46.2 {ratio} High <[address] [facility] Comment on above: Performed By: #### I PF, CMPX, CDP #### [facility] [address] [place] [address] Laboratory Coordinator: Oc Bay MD TSH w/reflex to FT4on 2021 Thyroid Stim. Horm. 3.33 uIU/mL Normal 0.30-5.00 [facility] Comment on above: Performed By: #### C MPX, CDP #### [facility] [address] [place] [address] Laboratory Coordinator: Oc Bay MD #### GLYHGB #### [address] [place], [place] [id number] Laboratory Coordinator: Jonathan Stewart MD Chlamydia/GC DNA, TPon 08-08 Chlamydia Probe, TP Negative Normal NEG [facility] Comment on above: Result Comment: CHLA MYDIA TRACHOMATIS DNA not detected by nucleic acid amplification. This test is intended for medical purposes only and is not valid for the evaluation of suspected sexual abuse or for other forensic purposes. In certain contexts, culture may be required to meet applicable laws and regulations for diagnosis of C. trachomatis and N. gonorrhoeae infections. Per 2014 CDC recommendations, this test does not include confirmation of positive results by an alternative nucleic acid target. Performed By: #### C MPX, CDP #### [facility] [address] [place] [address] Laboratory Coordinator: Oc Bay MD #### GLYHGB #### [facility] [address] [place], [place] [id number] Laboratory Coordinator: Jonathan Stewart MD Gonorrhea Probe, TP Negative Normal NEG [facility] Comment on above: Result Comment: NEIS SERIA GONORRHOEAE DNA not detected by nucleic acid amplification. This test is intended for medical purposes only and is not valid for the evaluation of suspected sexual abuse or for other forensic purposes. In certain contexts, culture may be required to meet applicable laws and regulations for diagnosis of C. trachomatis and N. gonorrhoeae infections. Per 2014 CDC recommendations, this test does not include confirmation of positive results by an alternative nucleic acid target. Performed By: #### C MPX, CDP #### [address] [place] [address] Laboratory Coordinator: Oc Bay MD #### GLYHGB #### [address] [id number] Laboratory Coordinator: Jonathan Stewart MD HIV Ag/Abon 08-08-2021 HIV Ag/Ab Non-Reactive Normal [facility] Comment on above: Result Comment: No l aboratory evidence of HIV infection. If acute HIV infection is suspected, consider testing for HIV-1 RNA. Performed By: #### I PF CMPX, CDP #### [address] [place] [address] Laboratory Coordinator: Oc Bay MD Hepatitis Acute [facility] 08-08 Hep A Ab,IgM Non-Reactive Normal [facility] Comment on above: Performed By: #### I PF CMPX, CDP #### [address] [place] [address] Laboratory Coordinator: Oc Bay MD Hep B Core Ab,IgM Non-Reactive Normal [facility] Comment on above: Performed By: #### I PF, CMPX, CDP #### [address] [place] [address] Laboratory Coordinator: Oc Bay MD Hep B Surf Ag Non-Reactive Normal [facility] Comment on above: Performed By: #### I PF, CMPX, CDP #### [address] [place] [address] Laboratory Coordinator: Oc Bay MD Hep C Ab Non-Reactive Normal [facility] Comment on above: Result Comment: The hepatitis C procedure used in our laboratory is a Chemiluminescent test specific for three recombinant HCV antigens. A negative anti-HCV result indicates that the antibodies to hepatitis C virus are not present at this time. Individuals with reactive anti-HCV should be considered infected and infectious until proven otherwise. Confirmation of all equivocal or reactive results is recommended by ordering HCV RNA by PCR. Performed By: #### I LAY SAUNDERS, CDP #### [facility] [address] [place] [address] [place] [address] Laboratory Coordinator: Oc Bay MD Herpes Profileon 08-08-2021 Herpes Type I, IgG 0.25 Normal <0.[address] [facility] Comment on above: Result Comment: Reference Range: <=0.90 Negative 0.91-1.09 Equivocal >=1.10 Positive Performed By: #### I LAY SAUNDERS, CDP #### [address] [place] [address] Laboratory Coordinator: Oc Bay MD Herpes Type I/II,IgM 0.85 Normal <0.91 [facility] Comment on above: Result Comment: Reference Range: <=0.90 Negative 0.91-1.09 Equivocal >=1.10 Positive If positive, an IgM result indicates a current or recent infection. This test does not differentiate type I from type II. No current reference test is available for this. If IgG tests are ordered and are negative, consider retesting in 2 to 3 weeks. Performed By: #### I LAY SAUNDERS, CDP #### [address] [place] [address] Laboratory Coordinator: Oc Bay MD Herpes Type II, IgG 4.26 High <0.[address] [facility] Comment on above: Result Comment: Reference Range: <=0.90 Negative 0.91-1.09 Equivocal >=1.10 Positive Performed By: #### I NICKY CMPX, CDP #### [address] [place] [address] Laboratory Coordinator: Oc Bay MD T.pallidum Ab Screenon 08-08 T.pallidum Ab Screen Non-Reactive Normal NR [facility] Comment on above: Result Comment: T. pallidum antibodies are not detected. There is no serological evidence of infection with T. pallidum (early primary syphilis cannot be excluded). Retest in 2-4 weeks if syphilis is clinically suspect. Performed By: #### C MPX, CDP #### [facility] [address] [place] [address] Laboratory Coordinator: Oc Bay MD #### GLYHGB #### [address] [address] Laboratory Coordinator: Jonathan Stewart MD Cytologyon 08-07-2021 Cytology (NOTE) INTERPRETATION Cervical material, (ThinPrep vial, Imaging-assisted review): Specimen Adequacy: Satisfactory for evaluation. - Endocervical/transfor mation zone component present. Descriptive Diagnosis: Negative for intraepithelial lesion or malignancy. 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 Comment on above: Performed By: #### I PF, CMPX, CDP #### [facility] [address] [place] [address] Laboratory Coordinator: Oc Bay MD HIV Screenon 08-07-2021 HIV Ag/Ab Non-Reactive NONREACTIVE [facility] Comment on above: No laboratory eviden ce of HIV infection. If acute HIV infection is suspected, consider testing for HIV-[address] [facility] Hepatitis Panel, Acuteon HAV IgM IA Qn (S) Non-Reactive NONREACTIVE [facility] Hep B Core Ab, IgM Non-Reactive NONREACTIVE [facility] Hepatitis B Surface Ag Non-Reactive NONREACTIVE [facility] Hepatitis C Ab Non-Reactive NONREACTIVE [facility] Comment on above: The hepatitis C procedure used in our laboratory is a Chemiluminescent test specific for three recombinant HCV antigens. A negative anti-HCV result indicates that the antibodies to hepatitis C virus are not present at this time. Individuals with reactive anti-HCV should be considered infected and infectious until proven otherwise. Confirmation of all equivocal or reactive results is recommended by ordering HCV RNA by PCR. [facility] T. pallidum Abon 08-07-2021 T. pallidum, IgG Non-Reactive NONREACTIVE [facility] Comment on above: T. pallidum antibodies are not detected. There is no serological evidence of infection with T. pallidum (early primary syphilis cannot be excluded). Retest in 2-4 weeks if syphilis is clinically suspect. [facility] Hemoglobin A1Con 06-30-2021 Glucose [Mass/Vol] 418 mg/dL Normal [facility] Comment on above: Result Comment: The ADA and AACC recommend providing the estimated average glucose result to permit better patient understanding of their HBA1c result. Performed By: #### I MARILOU SAUNDERSX, CDP #### [facility] [address] [place] [address] [place] [address] Laboratory Coordinator: Oc Bay MD HbA1c (Bld) [Mass fraction] 16.2 % High 4.0-6.[address] [facility] Comment on above: Performed By: #### I MARILOU SAUNDERSX, CDP #### [facility] [address] [place] [address] Laboratory Coordinator: Oc Bay MD LDL Chol, Directon 2 LDL Chol, Direct 138 mg/dL High <100 [facility] Comment on above: Performed By: #### I NICKY CMPX, CDP #### [facility] [address] [place] [address] Laboratory Coordinator: Oc Bay MD Lipid Panelon 06-30-2021 Cholesterol [Mass/Vol] 495 mg/dL High <200 [facility] Comment on above: Cholesterol Guidelines: <200 Desirable 200-240 Borderline >240 Undesirable Cholesterol in HDL [Mass/Vol] 27 mg/dL Low >[address] [facility] Comment on above: HDL Guidelines: <40 Undesirable 40-59 Borderline >59 Desirable Cholesterol.total/Adelaida sterol in HDL [Mass ratio] 18.3 {ratio} High <[address] [facility] Interpretation and review of laboratory results Abnormal [facility] LDL Cholesterol 0 - 130 mg/dL [facility] Comment on above: Calculation not renata d for Triglyceride value greater than 400 mg/dL. Direct LDL reflexed LDL Guidelines: <100 Desirable 100-129 Near to/above Desirable 130-159 Borderline >159 Undesirable Direct (measured) LDL and calculated LDL are not interchangeable tests. Triglyceride [Mass/Vol] 1422 mg/dL High <150 [facility] Comment on above: Triglyceride Guidelines: <150 Desirable 150-199 Borderline 200-499 High >499 Very high Based on AHA Guidelines for fasting triglyceride, January 2012. [facility] Lipid Profileon 06-30-2021 Cholesterol,LDL Normal 0-130 [facility] Comment on above: Result Comment: Calc ulation not valid for Triglyceride value greater than 400 mg/dL. Direct LDL reflexed LDL Guidelines: <100 Desirable 100-129 Near to/above Desirable 130-159 Borderline >159 Undesirable Direct (measured) LDL and calculated LDL are not interchangeable tests. Performed By: #### L DLDIR, LIPR #### [facility] [address] [place], [place] [id number] Laboratory Coordinator: Jonathan Stewart MD Triglyceride [Mass/Vol] 1422 mg/dL High <150 [facility] Comment on above: Result Comment: Triglyceride Guidelines: <150 Desirable 150-199 Borderline 200-499 High >499 Very high Based on AHA Guidelines for fasting triglyceride, January 2012. Performed By: #### L DLDIR, LIPR #### [employer] [address] [place] [address] Laboratory Coordinator: Jonathan Stewart MD Cholesterol [Mass/Vol] 495 mg/dL High <200 [facility] Comment on above: Result Comment: Cholesterol Guidelines: <200 Desirable 200-240 Borderline >240 Undesirable Performed By: #### L DLDIR, LIPR #### [facility] [employer] [address] [place] [address] Laboratory Coordinator: Jonathan Stewart MD Cholesterol in HDL [Mass/Vol] 27 mg/dL Low >[address] [facility] Comment on above: Result Comment: HDL Guidelines: <40 Undesirable 40-59 Borderline >59 Desirable Performed By: #### L DLDIR, LIPR #### [facility] [employer] [address] [place] [address] Laboratory Coordinator: Jonathan Stewart MD Cholesterol.total/Adelaida sterol in HDL [Mass ratio] 18.3 {ratio} High <[address] [facility] Comment on above: Performed By: #### L DLDIR, LIPR #### [facility] [address] [place] [address] Laboratory Coordinator: Jonathan Stewart MD Vitamin D 25 Hydroxyon 06-30 Interpretation and review of laboratory results Abnormal [facility] Vit D, 25-Hydroxy 9.2 ng/mL Low >29.9 [facility] Comment on above: Reference Range: Vitamin D status Range Deficiency <20 ng/mL Mild Deficiency 20-30 ng/mL Sufficiency 30-100 ng/mL Toxicity >100 ng/mL [facility] Vitamin D 25 OHon 06-30-2021 Vitamin D 25 [place] 9.2 ng/mL Low >29.9 [facility] Comment on above: Result Comment: Reference Range: Vitamin D status Range Deficiency <20 ng/mL Mild Deficiency 20-30 ng/mL Sufficiency 30-100 ng/mL Toxicity >100 ng/mL Performed By: #### I PF, CMPX, CDP #### [facility] [address] [place] [address] Laboratory Coordinator: Oc Bay MD CBC with Auto Differentialon 06-29-2021 Absolute Eos # 0.10 [facility] th Absolute Immature Granulocyte <0.[address] [facility] Absolute Lymph # 2.30 [facility] alth Absolute [place] # 0.50 [facility] lth Basophils (Bld) [#/Vol] 0.05 10*3/uL [facility] Basophils/100 WBC (Bld) 1 % 0 - 2 % [facility] Eosinophils/100 WBC (Bld) 2 % 1 - 4 % [facility] Hematocrit (Bld) [Volume fraction] 42.2 % 36.3 - 47.1 % [facility] Hemoglobin.gastrointest inal spec 1 Ql (Stl) 14.2 g/dL 11.9 - 15.1 g/dL [facility] Immature granulocytes/100 WBC (Bld) 0 % [address] [facility] Interpretation and review of laboratory results Abnormal [facility] Lymphocytes/100 WBC (Bld) 33 % 24 - 43 % [facility] MCH (RBC) [Entitic mass] 30.5 pg 25.2 - 33.[address] [facility] MCHC (RBC) [Mass/Vol] 33.6 g/dL 28.4 - 34.8 g/dL [facility] MCV (RBC) [Entitic vol] 90.6 fL 82.6 - 102.[address] [facility] Monocytes/100 WBC (Bld) 7 % 3 - 12 % [facility] NRBC Automated 0.0 0.0 per [address] [facility] Platelet distribution width (Bld) [Ratio] 12.7 % 11.8 - 14.4 % [facility] Platelet mean volume (Bld) [Entitic vol] 10.1 fL 8.1 - 13.[address] [facility] Platelets (Bld) [#/Vol] 522 10*3/uL High [facility] RBC (Bld) [#/Vol] 4.66 10*6/uL 3.95 - 5.1 1 m/uL [facility] Segmented neutrophils/100 WBC (Bld) 57 % 36 - 65 % [facility] Segs Absolute 3.92 [facility] ([facility]ld[facility] [#/Vol] 6.9 10*3/uL [facility] CBC with Diffon 06-29-2021 Abs. Basophil 0.05 k/uL Normal 0.00-0.20 [facility] Comment on above: Performed By: #### I PF, CMPX, CDP #### [facility] [address] [place], [place] [address] Laboratory Coordinator: Oc Bay MD Abs.Imm.Granulocyte <0.03 Normal 0.00-0.[address] [facility] Comment on above: Performed By: #### I PF, CMPX, CDP #### [address] [place], [place] [address] Laboratory Coordinator: Oc Bay MD Abs.Neutrophil (Seg) 3.92 k/uL Normal 1.50-8.10 [facility] Comment on above: Performed By: #### I PF, CMPX, CDP #### [address] [place], [place] [address] Laboratory Coordinator: Oc Bay MD Basophils/100 WBC (Bld) 1 % Normal 0-2 [facility] Comment on above: Performed By: #### I PF, CMPX, CDP #### [address] [place], [place] [address] Laboratory Coordinator: Oc Bay MD Eosinophils (Bld) [#/Vol] 0.10 10*3/uL Normal 0.00-0.[address] [facility] Comment on above: Performed By: #### I PF, CMPX, CDP #### [address] [place] [address] Laboratory Coordinator: Oc Bay MD Eosinophils/100 WBC (Bld) 2 % Normal 1-[address] [facility] Comment on above: Performed By: #### I PF, CMPX, CDP #### [address] [place], [facility] Laboratory Coordinator: Oc Bay MD Erythrocyte distribution width (RBC) [Ratio] 12.7 % Normal 11.8-14.[address] [facility] Comment on above: Performed By: #### I PF, CMPX, CDP #### [address] [place] [address] Laboratory Coordinator: Oc Bay MD Hematocrit (Bld) [Volume fraction] 42.2 % Normal 36.3-47.[address] [facility] Comment on above: Performed By: #### I PF, CMPX, CDP #### [facility] [address] [place], [place] [id number] Laboratory Coordinator: Oc Bay MD Hemoglobin (Bld) [Mass/Vol] 14.2 g/dL Normal 11.9-15.[address] [facility] Comment on above: Performed By: #### I PF, CMPX, CDP #### [facility] [address] [place], [place] [id number] Laboratory Coordinator: Oc Bay MD Immature granulocytes/100 WBC (Bld) 0 % Normal [address] [facility] Comment on above: Performed By: #### I PF, CMPX, CDP #### [address] [place], [place] [id number] Laboratory Coordinator: Oc Bay MD Lymphocytes (Bld) [#/Vol] 2.30 10*3/uL Normal 1.10-3.[address] [facility] Comment on above: Performed By: #### I PF, CMPX, CDP #### [address] [place], [place] [id number] Laboratory Coordinator: Oc Bay MD Lymphocytes/100 WBC (Bld) 33 % Normal 24-[address] [facility] Comment on above: Performed By: #### I PF, CMPX, CDP #### [facility] [address] [place] [address] [place] [place], [place] [id number] Laboratory Coordinator: Oc Bay MD MCH (RBC) [Entitic mass] 30.5 pg Normal 25.2-33.[address] [facility] Comment on above: Performed By: #### I PF, CMPX, CDP #### [facility] [address] [place], [place] [id number] Laboratory Coordinator: Oc Bay MD MCHC (RBC) [Mass/Vol] 33.6 g/dL Normal 28.4-34.8 [facility] Comment on above: Performed By: #### I PF, CMPX, CDP #### [address] [place], [place] [id number] Laboratory Coordinator: Oc Bay MD MCV (RBC) [Entitic vol] 90.6 fL Normal 82.6-102.9 [facility] Comment on above: Performed By: #### I PF, CMPX, CDP #### [address] [place], [place] [id number] Laboratory Coordinator: Oc Bay MD Monocytes (Bld) [#/Vol] 0.50 10*3/uL Normal 0.10-1.[address] [facility] Comment on above: Performed By: #### I PF, CMPX, CDP #### [address] [place], [place] [id number] Laboratory Coordinator: Oc Bay MD Monocytes/100 WBC (Bld) 7 % Normal 3-12 [facility] Comment on above: Performed By: #### I PF, CMPX, CDP #### [address] [place], [place] [id number] Laboratory Coordinator: Oc Bay MD Neutrophil (Seg) 57 % Normal 36-65 [facility] Comment on above: Performed By: #### I PF, CMPX, CDP #### [address] [place], [place] [address]83 Laboratory Coordinator: Oc Bay MD NRBC Automated 0.0 per 100 WBC Normal 0.[address] [facility] [facility] Comment on above: Performed By: #### I PF, CMPX, CDP #### [address] [place], [place] [id number] Laboratory Coordinator: Oc Bay MD Platelet mean volume (Bld) [Entitic vol] 10.1 fL Normal 8.1-13.[address] [facility] Comment on above: Performed By: #### I PF, CMPX, CDP #### [facility] [address] [place], [place] [id number] Laboratory Coordinator: Oc Bay MD Platelets (Bld) [#/Vol] 522 10*3/uL High 138-[address] [facility] Comment on above: Performed By: #### I PF, CMPX, CDP #### [facility] [address] [place], [place] [id number] Laboratory Coordinator: Oc Bay MD RBC (Bld) [#/Vol] 4.66 10*6/uL Normal 3.95-5.[address] [facility] Comment on above: Performed By: #### I PF, CMPX, CDP #### [address] [place], [place] [id number] Laboratory Coordinator: Oc Bay MD WBC (Bld) [#/Vol] 6.9 10*3/uL Normal 3.5-11.[address] [facility] Comment on above: Performed By: #### I PF, CMPX, CDP #### [address] [place] [address] Laboratory Coordinator: Oc Bay MD Comp Metab w/Bili Pron 06-29 (cont.) Normal [facility] Comment on above: Result Comment: Aver age GFR for 40-49 years old: 99 mL/min/1.73sq m Chronic Kidney Disease: <60 mL/min/1.73sq m Kidney failure: <15 mL/min/1.73sq m eGFR calculated using average adult body mass. Additional eGFR calculator available at: http://www.Socialmoth.com/multiple_crcl_2012.htm Performed By: #### I PF, CMPX, CDP #### [facility] [address] [place] [address] Laboratory Coordinator: Oc Bay MD Albumin [Mass/Vol] 3.2 g/dL Low 3.5-5.[address] [facility] Comment on above: Performed By: #### I PF, CMPX, CDP #### [facility] [address] [place] [address] [place] [address] Laboratory Coordinator: Oc Bay MD Albumin/Glob Ratio 1.2 Normal 1.0-2.[address] [facility] Comment on above: Performed By: #### I PF, CMPX, CDP #### [facility] [address] [place] [address] [place] [address] Laboratory Coordinator: Oc Bay MD Alkaline Phos 92 U/L Normal 35-104 [facility] Comment on above: Performed By: #### I PF, CMPX, CDP #### [facility] [address] [place] [address] [place] [place], [place] [id number] Laboratory Coordinator: Oc Bay MD ALT [Catalytic activity/Vol] 25 U/L Normal 5-[address] [facility] Comment on above: Performed By: #### I PF, CMPX, CDP #### [address] [place], [place] [id number] Laboratory Coordinator: Oc Bay MD Anion gap [Moles/Vol] 8 mmol/L Low 9-17 [facility] Comment on above: Performed By: #### I PF, CMPX, CDP #### [facility] [address] [place] [address] [place] [place], [place] 2780383 Laboratory Coordinator: Oc Bay MD AST [Catalytic activity/Vol] 22 U/L Normal <[address] [facility] Comment on above: Performed By: #### I PF, CMPX, CDP #### [facility] [address] [place] [address] [place] [address] Laboratory Coordinator: Oc Bay MD Bilirubin [Mass/Vol] mg/dL Low 0.3-1.2 [facility] Comment on above: Performed By: #### I PF, CMPX, CDP #### [facility] [address] [place], [place] 1744683 Laboratory Coordinator: Oc Bay MD Bilirubin, Indirect Can not be calculated Normal 0.00- 1.[address] [facility] Comment on above: Performed By: #### I PF, CMPX, CDP #### [facility] [address] [place], [place] [id number] Laboratory Coordinator: Oc Bay MD Bilirubin.indirect [Mass/Vol] mg/dL Normal <0.[address] [facility] Comment on above: Performed By: #### I PF, CMPX, CDP #### [facility] [address] [place] [address] [address] [place], [place] 2093983 Laboratory Coordinator: Oc Bay MD Calcium [Mass/Vol] 9.2 mg/dL Normal 8.6-10.[address] [facility] Comment on above: Performed By: #### I PF, CMPX, CDP #### [facility] [address] [place] [address] [place] [place], [place] [id number] Laboratory Coordinator: Oc Bay MD Chloride [Moles/Vol] 98 mmol/L Normal 98-107 [facility] Comment on above: Performed By: #### I PF, CMPX, CDP #### [facility] [address] [place] [address] [place] [place], [place] [id number] Laboratory Coordinator: Oc Bay MD CO2 [Moles/Vol] 29 mmol/L Normal 20-31 [facility] Comment on above: Performed By: #### I PF, CMPX, CDP #### [facility] [address] [place], [place] [id number] Laboratory Coordinator: Oc Bay MD Creatinine [Mass/Vol] 0.71 mg/dL Normal 0.50-0.90 [facility] Comment on above: Performed By: #### I PF, CMPX, CDP #### [facility] [address] [place], [place] 838[address]3 Laboratory Coordinator: Oc Bay MD GFR, Amer >60 Normal >60 [facility] Comment on above: Performed By: #### I PF, CMPX, CDP #### [facility] [address] [place], [place] 4233983 Laboratory Coordinator: Oc Bay MD GFR,non Amer >60 Normal >60 [facility] Comment on above: Performed By: #### I PF, CMPX, CDP #### [facility] [address] [place], [place] 5754583 Laboratory Coordinator: Oc Bay MD Glucose [Mass/Vol] 193 mg/dL High 70-[address] [facility] Comment on above: Performed By: #### I PF, CMPX, CDP #### [facility] [address] [place] [address] [address] [place], [place] [id number] Laboratory Coordinator: Oc Bay MD Potassium [Moles/Vol] 5.1 mmol/L Normal 3.7-5.3 [facility] Comment on above: Performed By: #### I PF, CMPX, CDP #### [facility] [address] [place] [address] [address] [place], [place] 7256983 Laboratory Coordinator: Oc Bay MD Protein [Mass/Vol] 5.8 g/dL Low 6.4-8.[address] [facility] Comment on above: Performed By: #### I PF, CMPX, CDP #### [facility] [address] [place] [address] [address] [place], [place] [id number] Laboratory Coordinator: Oc Bay MD Sodium [Moles/Vol] 135 mmol/L Normal 135-[address] [facility] Comment on above: Performed By: #### I PF, CMPX, CDP #### [facility] [address] [place] [address] [address] [place], [place] 0345283 Laboratory Coordinator: Oc Bay MD Staging: Normal [facility] Comment on above: Result Comment: Stag e 1: Some kidney damage normal GFR Stage 2: Mild kidney damage GFR 60-89 Stage 3: Moderate kidney damage GFR 30-59 Stage 4: Severe kidney damage GFR 15-29 Stage 5: Severe kidney damage GFR <15 ESRD - chronic treatment by dialysis or transplant Performed By: #### I PF, CMPX, CDP #### [facility] [address] [place] [address] Laboratory Coordinator: Oc Bay MD Urea nitrogen [Mass/Vol] 9 mg/dL Normal 6-[address] [facility] Comment on above: Performed By: #### I PF, CMPX, CDP #### [facility] [address] [place] [address] Laboratory Coordinator: Oc Bay MD Comprehensive Metabolic Pane l with Bilirubinon 06-29-2021 Albumin [Mass/Vol] 3.2 g/dL Low 3.5 - 5.2 g/dL [facility] Albumin/Globulin [Mass ratio] 1.2 {ratio} [facility] ALP (Bld) [Catalytic activity/Vol] 92 U/L 35 - 104 U/L [facility] ALT [Catalytic activity/Vol] 25 U/L 5 - 33 U/L [facility] Anion gap [Moles/Vol] 8 mmol/L Low 9 - 17 mmol/L [facility] AST [Catalytic activity/Vol] 22 U/L <[address] [facility] Bilirubin [Mass/Vol] mg/dL Low 0.3 - 1 .2 mg/dL [facility] Bilirubin, Indirect Can not be calculated 0.00 - 1.00 mg/dL [facility] Bilirubin.indirect [Mass/Vol] mg/dL <0.31 mg/dL [facility] Calcium [Mass/Vol] 9.2 mg/dL 8.6 - 10. 4 mg/dL [facility] Chloride [Moles/Vol] 98 mmol/L 98 - 10 7 mmol/L [facility] CO2 [Moles/Vol] 29 mmol/L 20 - 31 mmol/L [facility] Creatinine [Mass/Vol] 0.71 mg/dL 0.50 - 0.90 mg/dL [facility] Free PSA/Total PSA [Mass fraction] 5.8 g/dL Low 6.4 - 8.3 g/dL [facility] GFR >60 >60 mL/min [facility] GFR Non- >60 >60 mL/min [facility] Glucose [Mass/Vol] 193 mg/dL High 70 - 99 mg/dL [facility] Interpretation and review of laboratory results Abnormal [facility] Potassium [Moles/Vol] 5.1 mmol/L 3.7 - 5.3 mmol/L [facility] Sodium [Moles/Vol] 135 mmol/L 135 - 144 mmol/L [facility] Urea nitrogen (BldV) [Mass/Vol] 9 mg/dL 6 - 20 mg/dL [facility] - Chemistry and C hemistry - challengeon 06-29-2021 GFR/1.73 sq M.predicted MDRD (S/P/Bld) [Vol rate/Area] [facility] Comment on above: Average GFR for 40-4 9 years old: 99 mL/min/1.73sq m Chronic Kidney Disease: <60 mL/min/1.73sq m Kidney failure: <15 mL/min/1.73sq m eGFR calculated using average adult body mass. Additional eGFR calculator available at: http://www.[employer]/multiple_crcl_2012.htm Stage 1: Some kidney damage normal GFR Stage 2: Mild kidney damage GFR 60-89 Stage 3: Moderate kidney damage GFR 30-59 Stage 4: Severe kidney damage GFR 15-29 Stage 5: Severe kidney damage GFR <15 ESRD - chronic treatment by dialysis or transplant Beta Hydroxybutyrateon 06-20 Beta Hydroxybutyrate 5.00 mmol/L High 0.02-0.27 [facility] Comment on above: Performed By: #### I LAY SAUNDERS, CDP #### [facility] [address] [place] [address] Laboratory Coordinator: Oc Bay MD CBC with Diffon 06-20-2021 Abs. Basophil 0.09 k/uL Normal 0.00-0.20 [facility] Comment on above: Performed By: #### I LAY SAUNDERS, CDP #### [facility] [address] [place] [address] Laboratory Coordinator: Oc Bay MD Abs.Imm.Granulocyte 0.06 k/uL Normal 0.00-0.[address] [facility] Comment on above: Performed By: #### I PF CMPX, CDP #### [address] [place] [address] Laboratory Coordinator: Oc Bay MD Abs.Neutrophil (Seg) 13.30 k/uL High 1.50-8.10 [facility] Comment on above: Performed By: #### I PF, CMPX, CDP #### [address] [place] [address] Laboratory Coordinator: Oc Bay MD Basophils/100 WBC (Bld) 0 % Normal 0-2 [facility] Comment on above: Performed By: #### Familia SAUNDERS CMPX, CDP #### [address] [place], [facility] Laboratory Coordinator: cO Bay MD Eosinophils (Bld) [#/Vol] 0.05 10*3/uL Normal 0.00-0.[address] [facility] Comment on above: Performed By: #### Familia PF CMPX, CDP #### [address] [place] [address] Laboratory Coordinator: Oc Bay MD Eosinophils/100 WBC (Bld) 0 % Low 1-[address] [facility] Comment on above: Performed By: #### I PF CMPX, CDP #### [address] [place] [address] Laboratory Coordinator: Oc Bay MD Immature granulocytes/100 WBC (Bld) 1 % High [address] [facility] Comment on above: Performed By: #### I PF CMPX, CDP #### [address] [place], [place] 1614383 Laboratory Coordinator: Oc Bay MD Lymphocytes (Bld) [#/Vol] 1.95 10*3/uL Normal 1.10-3.[address] [facility] Comment on above: Performed By: #### I PF, CMPX, CDP #### [facility] [address] [place] [address] Laboratory Coordinator: Oc Bay MD Lymphocytes/100 WBC (Bld) 12 % Low 24-[address] [facility] Comment on above: Performed By: #### I PF, CMPX, CDP #### [facility] [address] [place] [address] [address] [place], [place] [address] Laboratory Coordinator: Oc Bay MD Monocytes (Bld) [#/Vol] 0.97 10*3/uL Normal 0.10-1.[address] [facility] Comment on above: Performed By: #### I PF, CMPX, CDP #### [address] [place], [place] [address] Laboratory Coordinator: Oc Bay MD Monocytes/100 WBC (Bld) 6 % Normal 3-12 [facility] Comment on above: Performed By: #### I PF, CMPX, CDP #### [address] [place], [place] [address] Laboratory Coordinator: Oc Bay MD Neutrophil (Seg) 81 % High 36-65 [facility] Comment on above: Performed By: #### I PF, CMPX, CDP #### [address] [place], [facility] Laboratory Coordinator: Oc Bay MD Erythrocyte distribution width (RBC) [Ratio] 12.1 % Normal 11.8-14.[address] [facility] Comment on above: Performed By: #### I PF, CMPX, CDP #### [address] [place], [place] 6[address]83 Laboratory Coordinator: Oc Bay MD Hematocrit (Bld) [Volume fraction] 46.9 % Normal 36.3-47.[address] [facility] Comment on above: Performed By: #### I PF, CMPX, CDP #### [facility] [address] [place] [address] [place] [address] Laboratory Coordinator: Oc Bay MD Hemoglobin (Bld) [Mass/Vol] 17.2 g/dL High 11.9-15.[address] [facility] Comment on above: Result Comment: SPENCER ECTED FOR THE PRESENCE OF LIPEMIA Performed By: #### I PF, CMPX, CDP #### [address] [place], [place] 488[address] Laboratory Coordinator: Oc Bay MD MCH (RBC) [Entitic mass] 31.4 pg Normal 25.2-33.[address] [facility] Comment on above: Performed By: #### I PF, CMPX, CDP #### [address] [place] [address] Laboratory Coordinator: Oc Bay MD MCHC (RBC) [Mass/Vol] 36.7 g/dL High 28.4-34.8 [facility] Comment on above: Performed By: #### I PF, CMPX, CDP #### [address] [place] [address] Laboratory Coordinator: Oc Bay MD MCV (RBC) [Entitic vol] 85.6 fL Normal 82.6-102.9 [facility] Comment on above: Performed By: #### I PF, CMPX, CDP #### [address] [place] [address] Laboratory Coordinator: Oc Bay MD NRBC Automated 0.0 per 100 WBC Normal 0.[address] [facility] Comment on above: Performed By: #### I PF, CMPX, CDP #### [address] [place] [address] Laboratory Coordinator: Oc Bay MD Platelet mean volume (Bld) [Entitic vol] 11.5 fL Normal 8.1-13.[address] [facility] Comment on above: Performed By: #### I PF, CMPX, CDP #### [facility] [address] [place], [place] [address]83 Laboratory Coordinator: Oc Bay MD Platelets (Bld) [#/Vol] 444 10*3/uL Normal 138-[address] [facility] Comment on above: Performed By: #### I PF, CMPX, CDP #### [facility] [address] [place], [place] 9[address]83 Laboratory Coordinator: Oc Bay MD RBC (Bld) [#/Vol] 5.48 10*6/uL High 3.95-5.[address] [facility] Comment on above: Performed By: #### I PF, CMPX, CDP #### [facility] [address] [place], [place] 3743883 Laboratory Coordinator: Oc Bay MD WBC (Bld) [#/Vol] 16.4 10*3/uL High 3.5-11.[address] [facility] Comment on above: Performed By: #### I PF, CMPX, CDP #### [address] [place], [place] [address]3 Laboratory Coordinator: Oc Bay MD CT ABDOMEN PELVIS W IV CONTR Jacky 06-20-2021 CT ABDOMEN PELVIS W IV CONTRAST EXAMINATION: CT OF THE ABDOMEN AND PELVIS WITH CONTRAST 06/20/2021 8:55 am TECHNIQUE: CT of the abdomen and pelvis was performed with the administration of intravenous contrast. Multiplanar reformatted images are provided for review. Dose modulation, iterative reconstruction, and/or weight based adjustment of the mA/kV was utilized to reduce the radiation dose to as low as reasonably achievable. COMPARISON: 11/19/2020 HISTORY: ORDERING SYSTEM PROVIDED HISTORY: Right-sided abdominal pain. S/P remote cholecystectomy TECHNOLOGIST PROVIDED HISTORY: Right-sided abdominal pain. S/P remote cholecystectomy Decision Support Exception - unselect if not a suspected or confirmed emergency medical condition->Emergency Medical Condition (MA) FINDINGS: Lower Chest: The visualized heart and lungs show no acute abnormalities. Organs: Cholecystectomy. Liver, spleen, pancreas, adrenal glands and kidneys show no significant abnormalities. GI/Bowel: There is limited evaluation due to absence of oral contrast. Stomach grossly normal. Small bowel normal caliber showing no focal lesions. The appendix is normal. No acute process in the colon. Pelvis: Unremarkable urinary bladder. Uterus grossly normal. Trace pelvic free fluid likely physiologic. Peritoneum/Retroperit oneum: No gross ascites. No significant lymphadenopathy. Minor atherosclerotic disease. Bones/Soft Tissues: No acute abnormality of the bones. The superficial soft tissues show no significant abnormalities. IMPRESSION: 1. No acute infective or inflammatory process. 2. No bowel obstruction. 3. No suspicious masses. 4. Status post cholecystectomy. 5. Trace pelvic free fluid likely physiologic. Interpreted by: Juanpablo Membreno MD Signed by: Juanpablo Membreno MD 06/20/21 Final result Normal [facility] Comp Metabolic Pr/rfx MGon 0 06-20-2021 Albumin [Mass/Vol] 3.3 g/dL Low 3.5-5.[address] [facility] Comment on above: Performed By: #### C MPX, CDP #### [facility] [address] [place] [address] [place] [address] Laboratory Coordinator: Oc Bay MD #### GLYHGB #### [place] [place], [place] 6836508 Laboratory Coordinator: Jonathan Stewart MD Alkaline Phos 105 U/L High 35-104 [facility] Comment on above: Performed By: #### C MPX, CDP #### [address] [place] [address] Laboratory Coordinator: Oc Bay MD #### GLYHGB #### [facility] [address] [place] [address] Laboratory Coordinator: Jonathan Stewart MD ALT [Catalytic activity/Vol] 14 U/L Normal 5-[address] [facility] Comment on above: Performed By: #### C MPX, CDP #### [address] [place], [place] 6753883 Laboratory Coordinator: Oc Bay MD #### GLYHGB #### [address] [place], [place] 1137608 Laboratory Coordinator: Jonathan Stewart MD Anion gap [Moles/Vol] 21 mmol/L High 9-17 [facility] Comment on above: Performed By: #### C MPX, CDP #### [address] [place], [place] 0874083 Laboratory Coordinator: Oc Bay MD #### GLYHGB #### [address] [id number] Laboratory Coordinator: Jonathan Stewart MD AST [Catalytic activity/Vol] 11 U/L Normal <[address] [facility] Comment on above: Performed By: #### C MPX, CDP #### [address] [place] [id number] Laboratory Coordinator: Oc Bay MD #### GLYHGB #### [address] [address] Laboratory Coordinator: Jonathan Stewart MD Bilirubin [Mass/Vol] 0.18 mg/dL Low 0.3-1.2 [facility] Comment on above: Performed By: #### C MPX, CDP #### [address] [place] [id number] Laboratory Coordinator: Oc Bay MD #### GLYHGB #### [address] [address] Laboratory Coordinator: Jonathan Stewart MD Calcium [Mass/Vol] 8.8 mg/dL Normal 8.6-10.[address] [facility] Comment on above: Performed By: #### C MPX, CDP #### [address] [place], [place] 5063583 Laboratory Coordinator: Oc Bay MD #### GLYHGB #### [address] [place] [address] Laboratory Coordinator: Jonathan Stewart MD Chloride [Moles/Vol] 94 mmol/L Low 98-107 [facility] Comment on above: Performed By: #### C MPX, CDP #### [facility] [address] [place], [place] 5698983 Laboratory Coordinator: Oc Bay MD #### GLYHGB #### [address] [address] Laboratory Coordinator: Jonathan Stewart MD CO2 [Moles/Vol] 15 mmol/L Low 20-31 [facility] Comment on above: Performed By: #### C MPX, CDP #### [facility] [address] [place], [place] 7517283 Laboratory Coordinator: Oc Bay MD #### GLYHGB #### [address] [address] Laboratory Coordinator: Jonathan Stewart MD Creatinine [Mass/Vol] 0.76 mg/dL Normal 0.50-0.90 [facility] Comment on above: Performed By: #### C MPX, CDP #### [facility] [address] [place], [place] 5012283 Laboratory Coordinator: Oc Bay MD #### GLYHGB #### [address] [address] Laboratory Coordinator: Jonathan Stewart MD GFR, Amer >60 Normal >60 [facility] Comment on above: Performed By: #### C MPX, CDP #### [facility] [address] [place], [place] 69[address]83 Laboratory Coordinator: Oc Bay MD #### GLYHGB #### [address] [id number] Laboratory Coordinator: Jonathan Stewart MD GFR,non Amer >60 Normal >60 [facility] Comment on above: Performed By: #### C MPX, CDP #### [facility] [address] [place], [place] 6[address]83 Laboratory Coordinator: Oc Bay MD #### GLYHGB #### [address] 0740208 Laboratory Coordinator: Jonathan Stewart MD Glucose [Mass/Vol] 452 mg/dL Critically high 70-99 [facility] Comment on above: Performed By: #### C MPX, CDP #### [facility] [address] [place] [address] Dr. [place], [place] [address] Laboratory Coordinator: Oc Bay MD #### GLYHGB #### [address] [address] Laboratory Coordinator: Jonathan Stewart MD Potassium [Moles/Vol] 4.6 mmol/L Normal 3.7-5.3 [facility] Comment on above: Performed By: #### C MPX, CDP #### [facility] [address] [place] [address] Dr. [place], [place] 4228683 Laboratory Coordinator: Oc Bay MD #### GLYHGB #### [address] [address] Laboratory Coordinator: Jonathan Stewart MD Protein [Mass/Vol] 5.9 g/dL Low 6.4-8.[address] [facility] Comment on above: Performed By: #### C MPX, CDP #### [facility] [address] [place] [address] Dr[address] [place], [place] 6255883 Laboratory Coordinator: Oc Bay MD #### GLYHGB #### [address] [place] [address] Laboratory Coordinator: Jonathan Stewart MD Sodium [Moles/Vol] 130 mmol/L Low 135-[address] [facility] Comment on above: Result Comment: ODALIS VIOLA SPECIMEN, SAMPLE ULTRAFUGED Performed By: #### C MARK, CDP #### [facility] [address] [place] [address] [place] [address] Laboratory Coordinator: Oc Bay MD #### GLYHGB #### [address] [place], [place] 1142708 Laboratory Coordinator: Jonathan Stewart MD Urea nitrogen [Mass/Vol] 17 mg/dL Normal 6-[address] [facility] Comment on above: Performed By: #### C MARK, CDP #### [address] [place] [address] Laboratory Coordinator: Oc Bay MD #### GLYHGB #### [address] [place] [address] Laboratory Coordinator: Jonathan Stewart MD (cont.) Normal [facility] Comment on above: Result Comment: Aver age GFR for 40-49 years old: 99 mL/min/1.73sq m Chronic Kidney Disease: <60 mL/min/1.73sq m Kidney failure: <15 mL/min/1.73sq m eGFR calculated using average adult body mass. Additional eGFR calculator available at: http://www.[employer]/multiple_crcl_2012.htm Performed By: #### C MARK, CDP #### [address] [place] [address] Laboratory Coordinator: Oc Bay MD #### GLYHGB #### [address] [place] [address] Laboratory Coordinator: Jonathan Stewart MD HCG, ,Urineon 06-20 Beta HCG ( test) Ql (U) Negative Normal NEG [facility] Comment on above: Result Comment: Spec imens with hCG levels near the threshold of the test (25 mIU/mL) may give a negative or indeterminate result. In such cases, another test should be performed with a new specimen in 48-72 hours. If early is suspected clinically in this setting, correlation with quantitative serum b-hCG level is suggested. [facility] has confirmed the use of plasma for this test. This has not been cleared or approved by the U.S. Food and Drug Administration. The FDA has determined that such clearance is not necessary. Performed By: #### I LAY SAUNDERS, CDP #### [facility] [address] [place] [address] Laboratory Coordinator: Oc Bay MD LDL Chol, Directon 2 LDL Chol, Direct 44 mg/dL Normal <100 [facility] Comment on above: Performed By: #### I LAY SAUNDERS, CDP #### [facility] [address] [place] [address] [place] [address] Laboratory Coordinator: Oc Bay MD Lipaseon 7 Lipase [Catalytic activity/Vol] 105 U/L High 13-[address] [facility] Comment on above: Performed By: #### C MPX, CDP #### [address] [place] [address] Laboratory Coordinator: Oc Bay MD #### GLYHGB #### [address] [place], [place] [id number] Laboratory Coordinator: Jonathan Stewart MD Lipid Profileon 06-20-2021 Cholesterol [Mass/Vol] 721 mg/dL High <200 [facility] Comment on above: Result Comment: Cholesterol Guidelines: <200 Desirable 200-240 Borderline >240 Undesirable Performed By: #### I LAY SAUNDERS, CDP #### [facility] [address] [place] [address] Laboratory Coordinator: Oc Bay MD Cholesterol in HDL [Mass/Vol] 20 mg/dL Low >[address] [facility] Comment on above: Result Comment: HDL Guidelines: <40 Undesirable 40-59 Borderline >59 Desirable Performed By: #### I PF, CMPX, CDP #### [facility] [address] [place] [address] Laboratory Coordinator: Oc Bay MD Cholesterol,LDL Normal 0-130 [facility] Comment on above: Result Comment: Calc ulation not valid for Triglyceride value greater than 400 mg/dL. Direct LDL reflexed LDL Guidelines: <100 Desirable 100-129 Near to/above Desirable 130-159 Borderline >159 Undesirable Direct (measured) LDL and calculated LDL are not interchangeable tests. Performed By: #### I PF, CMPX, CDP #### [facility] [address] [place] [address] Laboratory Coordinator: Oc Bay MD Cholesterol.total/Adelaida sterol in HDL [Mass ratio] 36.1 {ratio} High <[address] [facility] Comment on above: Performed By: #### I PF CMPX, CDP #### [facility] [address] [place] [address] Laboratory Coordinator: Oc Bay MD Triglyceride [Mass/Vol] mg/dL High <150 [facility] Comment on above: Result Comment: Triglyceride Guidelines: <150 Desirable 150-199 Borderline 200-499 High >499 Very high Based on AHA Guidelines for fasting triglyceride, January 2012. Performed By: #### I PF, CMPX, CDP #### [facility] [address] [place] [address] Laboratory Coordinator: Oc Bay MD Troponinon 06-20-2021 Troponin, High Sens 15 ng/L High 0-[address] [facility] Comment on above: Result Comment: High Sensitivity Troponin values cannot be compared with other Troponin methodologies. Patients with high levels of Biotin oral intake (i.e >5mg/day) may have falsely decreased Troponin levels. Samples collected within 8 hours of biotin intake may require additional information for diagnosis. LIPEMIC SPECIMEN, SAMPLE ULTRAFUGED Performed By: #### C MPX, CDP #### [facility] [address] [place] [address] Laboratory Coordinator: Oc Bay MD #### GLYHGB #### [facility] [address] [place], [place] [id number] Laboratory Coordinator: Jonathan Stewart MD Urinalysis w/ Microon 2021 ----- Normal [facility] Comment on above: Performed By: #### I PF, CMPX, CDP #### [facility] [address] [place], [place] [id number] Laboratory Coordinator: Oc Bay MD Bacteria TRACE Abnormal NONE [facility] Comment on above: Performed By: #### I PF, CMPX, CDP #### [facility] [address] [place], [place] [id number] Laboratory Coordinator: Oc Bay MD Bilirubin, SemiQt,Ur Negative Normal NEG [facility] Comment on above: Performed By: #### I PF, CMPX, CDP #### [facility] [address] [place], [place] [id number] Laboratory Coordinator: Oc Bay MD Blood, Urine 2+ Abnormal NEG [facility] Comment on above: Performed By: #### I PF, CMPX, CDP #### [facility] [address] [place], [place] [id number] Laboratory Coordinator: Oc Bay MD Clarity (U) Clear Normal CLEAR [facility] Comment on above: Performed By: #### I PF, CMPX, CDP #### [facility] [address] [place], [place] 2008383 Laboratory Coordinator: Oc Bay MD Color (U) Yellow Normal YEL [facility] Comment on above: Performed By: #### I PF, CMPX, CDP #### [facility] [address] [place], [place] [id number] Laboratory Coordinator: Oc Bay MD Epithelial cells LM Ql (Urine sed) 10 TO 20 Normal 0-[address] [facility] Comment on above: Performed By: #### I PF, CMPX, CDP #### [facility] [address] [place] [address] [place] [place], [place] [id number] Laboratory Coordinator: Oc Bay MD Glucose Ql (U) 3+ Abnormal NEG [facility] Comment on above: Performed By: #### I PF, CMPX, CDP #### [facility] [address] [place] [address] [place] [place], [place] [id number] Laboratory Coordinator: Oc Bay MD Ketones Ql (U) 2+ Abnormal NEG [facility] Comment on above: Performed By: #### I PF, CMPX, CDP #### [address] [place], [place] [id number] Laboratory Coordinator: Oc Bay MD Leukocyte esterase Test strip Ql (U) Negative Normal NEG [facility] Comment on above: Performed By: #### I PF, CMPX, CDP #### [address] [place] [address] Laboratory Coordinator: Oc Bay MD Nitrite,Ur Negative Normal [facility] Comment on above: Performed By: #### I PF, CMPX, CDP #### [address] [place] [address] Laboratory Coordinator: Oc Bay MD PH,Ur 5.5 Normal 5.0-9.[address] [facility] Comment on above: Performed By: #### I PF, CMPX, CDP #### [facility] [address] [place] [address] [place] [address] Laboratory Coordinator: Oc Bay MD Protein Ql (U) 2+ Abnormal NEG [facility] Comment on above: Performed By: #### I PF, CMPX, CDP #### [facility] [address] [place] [address] [place] [address] Laboratory Coordinator: Oc Bay MD Spec. [place],Ur 1.020 Normal 1.010-1.020 [facility] Comment on above: Performed By: #### I PF, CMPX, CDP #### [facility] [address] [place], [place] [id number] Laboratory Coordinator: Oc Bay MD Urine RBC's 2 TO 5 Normal 0-[address] [facility] Comment on above: Performed By: #### I PF, CMPX, CDP #### [facility] [address] [place], [place] [id number] Laboratory Coordinator: Oc Bay MD Urine WBC's 0 TO 2 Normal 0-[address] [facility] Comment on above: Performed By: #### I PF, CMPX, CDP #### [address] [place], [place] [address]23[address]83 Laboratory Coordinator: Oc Bay MD Urobilinogen,Ur Normal Normal NORM [facility] Comment on above: Performed By: #### I PF, CMPX, CDP #### [facility] [address] [place] [address] [place], [place] 743[address]83 Laboratory Coordinator: Oc Bay MD Venous Blood Gaseson 022 Body Temp. 37.[address] [facility] Comment on above: Performed By: #### C MPX, CDP #### [address] [place], [place] 3059483 Laboratory Coordinator: Oc Bay MD #### GLYHGB #### [facility] [address] [place] [id number] Laboratory Coordinator: Jonathan Stewart MD HCO3 (Bld) [Moles/Vol] 18.7 mmol/L Low 24.0-30.0 [facility] Comment on above: Performed By: #### C MPX, CDP #### [facility] [address] [place] [address] Laboratory Coordinator: Oc Bay MD #### GLYHGB #### [address] [place] [address] Laboratory Coordinator: Jonathan Stewart MD Negative Base Excess 5.9 mmol/L High 0.0-2.0 [facility] Comment on above: Performed By: #### C MPX, CDP #### [facility] [address] [place], [place] [address]83 Laboratory Coordinator: Oc Bay MD #### GLYHGB #### [address] [address] Laboratory Coordinator: Jonathan Stewart MD Oxygen (Bld) [Partial pressure] 56.1 mm[Hg] High 30.0-50.[address] [facility] Comment on above: Performed By: #### C MPX, CDP #### [facility] [address] [place] [address] [place], [place] [id number] Laboratory Coordinator: Oc Bay MD #### GLYHGB #### [address] [address] Laboratory Coordinator: Jonathan Stewart MD Oxygen saturation in Blood 88.2 % High 60.0-85.[address] [facility] Comment on above: Performed By: #### C MPX, CDP #### [facility] [address] [place] [address] [place], [place] 79[address]83 Laboratory Coordinator: Oc Bay MD #### GLYHGB #### [address] [address] Laboratory Coordinator: Jonathan Stewart MD pCO2 34.5 Low 39-[address] [facility] Comment on above: Performed By: #### C MPX, CDP #### [facility] [address] [place], [place] [id number] Laboratory Coordinator: Oc Bay MD #### GLYHGB #### [address] [address] Laboratory Coordinator: Jonathan Stewart MD pH (Bld) 7.352 [pH] Normal 7.32-7.[address] [facility] Comment on above: Performed By: #### C MPX, CDP #### [facility] [address] [place] [address] Laboratory Coordinator: Oc Bay MD #### GLYHGB #### [facility] [address] [place] [address] Laboratory Coordinator: Jonathan Stewart MD Q - CBC W/DIFF AND PLTon BASOABS 58 cells/uL Normal 0-200 [facility] Comment on above: Order Comment: [facility] performed at: [facility], [address] [facility], [address] [place] [address], [phone], Freezer Assistant: Erick Zhou MD [facility] Collection Date/Time: [facility] Results Received Date/Time: [facility] Reported Date/Time: Performed By: #### % 8293, 968T, 35785J, 53876, 42A, 17200F #### [facility] Default [address] [place] [address] Basophils/100 WBC (Bld) 0.7 % Normal [facility] Comment on above: Order Comment: [facility] performed at: [facility], [address] [place] , [address] [place] [address], [phone], Freezer Assistant: Erick Zhou MD [facility] Date/Time: [facility] Results Received Date/Time: [facility] Reported Date/Time: Performed By: #### % 8293, 968T, 98142L, 65437, 42A, 73359Q #### [facility] Default [address] [place] [address] COMMENT(S) SEE NOTE Normal [facility] Comment on above: Order Comment: [facility] performed at: [facility], [address] [facility], [address] [place] [address], [address] [place] [address], Freezer Assistant: Erick Zhou MD [facility] Date/Time: [facility] Results Received Date/Time: [facility] Reported Date/Time: Result Comment: Resu lts were obtained by repeat analysis to include running a plasma blank to eliminate interferences caused by either WBC's, lipemia, or protein entities. Performed By: #### % 8293, 968T, 96541V, 44342, 42A, 22831E #### [facility] [address] [place] [address] EOSABS 108 cells/uL Normal 15-500 [facility] Comment on above: Order Comment: [facility] performed at: [facility], [facility], [address] [facility], [address] [place] [address], [address] [place] [address], Freezer Assistant: Erick Zhou MD [facility] Date/Time: [facility] Results Received Date/Time: [facility] Reported Date/Time: Performed By: #### % 8293, 968T, 08594B, 14667, 42A, 29122W #### [facility] [address] [place] [address] Eosinophils/100 WBC (Bld) 1.3 % Normal [facility] Comment on above: Order Comment: [facility] performed at: [facility], [address] [facility], [address] [place] [address], [address] [place] [address], Freezer Assistant: Erick Zhou MD [facility] Date/Time: [facility] Results Received Date/Time: [facility] Reported Date/Time: Performed By: #### % 8293, 968T, 47522H, 45028, 42A, 13586Q #### [facility] [address] [place] [address] Erythrocyte distribution width (RBC) [Ratio] 13.4 % Normal 11.0-15.0 [facility] Comment on above: Order Comment: [facility] performed at: [facility], [facility], [address] [place] [address], [address] [place] [address], [address] [place] [address], Freezer Assistant: Erick Zhou MD [facility] Date/Time: [facility] Results Received Date/Time: [facility] Reported Date/Time: Performed By: #### % 8293, 968T, 79050G, 55032, 42A, 29940K #### [facility] Default [address] [place] [address] Hematocrit (Bld) [Volume fraction] 45.0 % Normal 35.0-45.0 [facility] Comment on above: Order Comment: [facility] performed at: [facility], [facility], [address] [facility], [address] [place] [address], [address] [place] [address], Freezer Assistant: Erick Zhou MD [facility] Date/Time: [facility] Results Received Date/Time: [facility] Reported Date/Time: Performed By: #### % 8293, 968T, 01162D, 05820, 42A, 28036M #### [facility] Default [address] [place] [address] Hemoglobin (Bld) [Mass/Vol] 15.0 g/dL Normal 11.7-15.5 [facility] Comment on above: Order Comment: [facility] performed at: [employer], [facility], [address] [facility], [address] [place] [address], [address] [place] [address], Freezer Assistant: Erick Zhou MD [facility] Date/Time: [facility] Results Received Date/Time: [facility] Reported Date/Time: Performed By: #### % 8293, 968T, 48824M, 80437, 42A, 73500B #### [facility] [address] [place] [address] Lymphocytes (Bld) [#/Vol] 2.108 10*3/uL Normal 850-3900 [facility] Comment on above: Order Comment: [facility] performed at: [facility], [facility], [address] [place] [address], [address] [place] [address], [address] [place] [address], Freezer Assistant: Erick Zhou MD [facility] Date/Time: [facility] Results Received Date/Time: [facility] Reported Date/Time: Performed By: #### % 8293, 968T, 97530M, 86946, 42A, 43284K #### [facility] Default [address] [place] [address] Lymphocytes/100 WBC (Bld) 25.4 % Normal [facility] Comment on above: Order Comment: [facility] performed at: [facility], [facility], [address] [place] [address], [address] [place] [address], [address] [place] [address], Freezer Assistant: Erick Zhou MD [facility] Date/Time: [facility] Results Received Date/Time: [facility] Reported Date/Time: Performed By: #### % 8293, 968T, 67611A, 32329, 42A, 78745A #### [facility] Default [address] [place] [address] MCH (RBC) [Entitic mass] 29.6 pg Normal 27.0-33.0 [facility] Comment on above: Order Comment: [facility] performed at: [employer], [facility], [address] [place] [address], [address] [place] [address], [address] [place] [address], Freezer Assistant: Erick Zhou MD [facility] Date/Time: [facility] Results Received Date/Time: [facility] Reported Date/Time: Performed By: #### % 8293, 968T, 29488B, 93958, 42A, 21602R #### [facility] Default [address] [place] [address] MCHC (RBC) [Mass/Vol] 33.3 g/dL Normal 32.0-36.0 [facility] Comment on above: Order Comment: [facility] performed at: [place], [facility], [address] [facility], [address] [place] [address], [address] [place] [address], Freezer Assistant: Erick Zhou MD [facility] Date/Time: [facility] Results Received Date/Time: [facility] Reported Date/Time: Performed By: #### % 8293, 968T, 54933S, 76385, 42A, 26075V #### [facility] Default [address] [place] [address] MCV (RBC) [Entitic vol] 88.9 fL Normal 80.0-100.0 [facility] Comment on above: Order Comment: [facility] performed at: [place], [facility], [address] [facility], [address] [place] [address], [address] [place] [address], Freezer Assistant: Erick Zhou MD [facility] Date/Time: [facility] Results Received Date/Time: [facility] Reported Date/Time: Performed By: #### % 8293, 968T, 05184A, 12954, 42A, 16483Y #### [facility] Default [address] [place] [address] MONOABS 390 cells/uL Normal 200-950 [facility] Comment on above: Order Comment: [facility] performed at: [employer], [facility], [address] [facility], [address] [place] [address], [address] [place] [address], Freezer Assistant: Erick Zhou MD [facility] Date/Time: [facility] Results Received Date/Time: [facility] Reported Date/Time: Performed By: #### % 8293, 968T, 73424V, 24738, 42A, 44491G #### [facility] Default [address] [place] [address] Monocytes/100 WBC (Bld) 4.7 % Normal [facility] Comment on above: Order Comment: [facility] performed at: [employer], [facility], [address] [place] , [address] [place] [address], [address] [place] [address], Freezer Assistant: Erick Zhou MD [facility] Date/Time: [facility] Results Received Date/Time: [facility] Reported Date/Time: Performed By: #### % 8293, 968T, 90755S, 75547, 42A, 53502A #### [facility] Default [address] [place] [address] Neutrophils (Bld) [#/Vol] 5.636 10*3/uL Normal 7028-6782 [facility] Comment on above: Order Comment: [facility] performed at: [employer], [facility], [address] [facility], [address] [place] [address], [address] [place] [address], Freezer Assistant: Erick Zhou MD [facility] Date/Time: [facility] Results Received Date/Time: [facility] Reported Date/Time: Performed By: #### % 8293, 968T, 14219H, 83239, 42A, 30364D #### [facility] Default [address] [place] [address] Neutrophils/100 WBC (Bld) 67.9 % Normal [facility] Comment on above: Order Comment: [facility] performed at: [employer], [facility], [address] [facility], [address] [place] [address], [address] [place] [address], Freezer Assistant: Erick Zhou MD [facility] Date/Time: [facility] Results Received Date/Time: [facility] Reported Date/Time: Performed By: #### % 8293, 968T, 66026C, 57716, 42A, 36997C #### [facility] Default [address] [place] [address] Platelet mean volume (Bld) [Entitic vol] 12.4 fL Normal 7.5-12.5 [facility] Comment on above: Order Comment: [facility] performed at: [employer], [facility], [address] [place] , [address] [place] [address], [address] [place] [address], Freezer Assistant: Erick Zhou MD [facility] Date/Time: [facility] Results Received Date/Time: [facility] Reported Date/Time: Performed By: #### % 8293, 968T, 38869P, 81212, 42A, 81908V #### [facility] Default [address] [place] [address] Platelets (Bld) [#/Vol] 411 10*3/uL High 140-400 [facility] Comment on above: Order Comment: [facility] performed at: [employer], [facility], [address] , [address] [place] [address], [address] [place] [address], Freezer Assistant: Erick Zhou MD [facility] Date/Time: [facility] Results Received Date/Time: [facility] Reported Date/Time: Performed By: #### % 8293, 968T, 06902T, 30115, 42A, 02725I #### [facility] Default [address] [place] [address] RBC (Bld) [#/Vol] 5.06 10*6/uL Normal 3.80-5.10 [facility] Comment on above: Order Comment: [facility] performed at: [employer], [facility], [address] , [address] [place] [address], [place], [place], [address] [place] [address], Freezer Assistant: Erick Zhou MD [facility] Date/Time: [facility] Results Received Date/Time: [facility] Reported Date/Time: Performed By: #### % 8293, 968T, 38840M, 70063, 42A, 82612O #### [facility] Default [address] [place] [address] WBC (Bld) [#/Vol] 8.3 10*3/uL Normal 3.8-10.8 [facility] Comment on above: Order Comment: [facility] performed at: [employer], [facility], [address] [facility], [address] [place] [address], [address] [place] [address], Freezer Assistant: Erick Zhou MD [facility] Date/Time: [facility] Results Received Date/Time: [facility] Reported Date/Time: Performed By: #### % 8293, 968T, 52118W, 03895, 42A, 66626Q #### [facility] Default [address] [place] [address] Q - COMPREHENSIVE METABOLIC PANEL W/EGFRon 04-17-2021 Albumin [Mass/Vol] 3.6 g/dL Normal 3.6-5.1 [facility] [place] [facility] Comment on above: Order Comment: [facility] performed at: [employer], [facility], [address] [facility], [address] [place] [address], [address] [place] [address], Freezer Assistant: Erick Zhou MD [facility] Date/Time: [facility] Results Received Date/Time: [facility] Reported Date/Time: Performed By: #### % 8293, 968T, 85455N, 15688, 42A, 39033O #### [facility] Default [address] [place] [address] Albumin/Globulin [Mass ratio] 1.3 {ratio} Normal 1.0-2.5 [facility] Comment on above: Order Comment: [facility] performed at: [employer], [facility], [address] [place] , [address] [place] [address], [address] [place] [address], Freezer Assistant: Erick Zhou MD [facility] Date/Time: [facility] Results Received Date/Time: [facility] Reported Date/Time: Performed By: #### % 8293, 968T, 40870K, 60220, 42A, 52027A #### [facility] Default [address] [place] [address] ALP [Catalytic activity/Vol] 120 U/L Normal 31-125 [facility] Comment on above: Order Comment: [facility] performed at: [employer], [facility], [address] [place] [address], [address] [place] [address], [address] [place] [address], Freezer Assistant: Erick Zhou MD [facility] Date/Time: [facility] Results Received Date/Time: [facility] Reported Date/Time: Performed By: #### % 8293, 968T, 23337L, 17871, 42A, 23140F #### [facility] Default [address] [place] [address] ALT [Catalytic activity/Vol] 52 U/L High 6-29 [facility] Comment on above: Order Comment: Quest Testing performed at: WebNotes, [facility], [address] [place] [address], [address] [place] [address], [address] [place] [address], Freezer Assistant: Erick Zhou MD Quest Collection Date/Time: Quest Results Received Date/Time: [facility] Reported Date/Time: Performed By: #### % 8293, 968T, 19205D, 73034, 42A, 40988X #### [facility] Default [address] [place] [address] AST [Catalytic activity/Vol] 21 U/L Normal 10-30 [facility] Comment on above: Order Comment: Quest Testing performed at: [facility], [facility], [address] [place] [address], [address] [place] [address], [address] [place] [address], Freezer Assistant: Erick Zhou MD Quest Collection Date/Time: [facility] Results Received Date/Time: [facility] Reported Date/Time: Performed By: #### % 8293, 968T, 19360F, 21325, 42A, 36770V #### [facility] Default [address] [place] [address] BUN/CREA 24 NOT APPLICABLE Normal 6-22 [facility] Comment on above: Order Comment: Quest Testing performed at: [place]ri[place], [facility], [address] , [address] [place] [address], [address] [place] [address], Freezer Assistant: Erick Zhou MD Quest Collection Date/Time: [facility] Results Received Date/Time: [facility] Reported Date/Time: Performed By: #### % 8293, 968T, 21964X, 67789, 42A, 73279A #### [facility] Default [address] [place] [address] Calcium [Mass/Vol] 9.6 mg/dL Normal 8.6-10.2 [facility] Comment on above: Order Comment: [facility] Testing performed at: [facility], [facility], [address] , [address] [place] [address], [address] [place] [address], Freezer Assistant: Erick Zhou MD [facility] Collection Date/Time: [facility] Results Received Date/Time: [facility] Reported Date/Time: Performed By: #### % 8293, 968T, 83027K, 53003, 42A, 17819P #### [facility] Default [address] [place] [address] Chloride [Moles/Vol] 93 mmol/L Low 98-110 [facility] Specialist Comment on above: Order Comment: [facility] Testing performed at: [facility], [facility], [address] , [address] [place] [address], [address] [place] [address], Freezer Assistant: Erick Zhou MD [facility] Collection Date/Time: [facility] Results Received Date/Time: [facility] Reported Date/Time: Performed By: #### % 8293, 968T, 67609X, 71132, 42A, 99177D #### [facility] Default [address] [place] [address] CO2 [Moles/Vol] 18 mmol/L Low 20-32 [facility] Comment on above: Order Comment: Quest Testing performed at: [facility], [address] [facility], [address] [place] [address], [address] [place] [address], Freezer Assistant: Erick Zhou MD Quest Collection Date/Time: [facility] Results Received Date/Time: [facility] Reported Date/Time: Performed By: #### % 8293, 968T, 70612C, 09655, 42A, 25233D #### [facility] Default [address] [place] [address] Creatinine [Mass/Vol] 0.88 mg/dL Normal 0.50-1.10 [facility] [place] Comment on above: Order Comment: Quest Testing performed at: [facility], [address] [facility], [address] [place] [address], [address] [place] [address], Freezer Assistant: Erick Zhou MD [facility] Collection Date/Time: [facility] Results Received Date/Time: [facility] Reported Date/Time: Performed By: #### % 8293, 968T, 10400S, 88014, 42A, 84328T #### [facility] Default [address] [place] [address] eGFRAA 85 mL/min/1.73m2 Normal > OR = 60 [facility] Specialist Comment on above: Order Comment: [facility] Testing performed at: [facility], [address] [facility], [address] [place] [address], [address] [place] [address], Freezer Assistant: Erick Zhou MD Quest Collection Date/Time: [facility] Results Received Date/Time: [facility] Reported Date/Time: Performed By: #### % 8293, 968T, 13001D, 08731, 42A, 03714M #### [facility] Default [address] [place] [address] eGFRNAA 70 mL/min/1.73m2 Normal > OR = 60 [facility] Comment on above: Order Comment: [facility] Testing performed at: [facility], [address] [facility], [address] [place] [address], [address] [place] [address], Freezer Assistant: Erick Zhou MD [facility] Collection Date/Time: [facility] Results Received Date/Time: [facility] Reported Date/Time: Performed By: #### % 8293, 968T, 59981A, 81202, 42A, 40426D #### [facility] Default [address] [place] [address] Globulin (S) [Mass/Vol] 2.8 g/dL Normal 1.9-3.7 [facility] Comment on above: Order Comment: Quest Testing performed at: [facility], [address] [place] [address], [address] [place] [address], [address] [place] [address], Freezer Assistant: Erick Zhou MD [facility] Collection Date/Time: [facility] Results Received Date/Time: [facility] Reported Date/Time: Performed By: #### % 8293, 968T, 18634C, 82403, 42A, 22166S #### [facility] Default [address] [place] [address] Glucose [Mass/Vol] 559 mg/dL Critically high 65-99 [facility] Comment on above: Order Comment: Quest Testing performed at: [facility] [employer] [facility], [address] [place] [address], [address] [place] [address], [address] [place] [address], Freezer Assistant: Erick Zhou MD Quest Collection Date/Time: [facility] Results Received Date/Time: [facility] Reported Date/Time: Result Comment: Crit ical result called to lluvia at 04/18/2021 8:15 AM by Rose Novoa (GLU) Verified by repeat analysis. Fasting reference interval For someone without known diabetes, a glucose value >125 mg/dL indicates that they may have diabetes and this should be confirmed with a follow-up test. Performed By: #### % 8293, 968T, 43863P, 77713, 42A, 27612S #### [facility] Default [address] [place] [address] Potassium [Moles/Vol] 4.8 mmol/L Normal 3.5-5.3 [facility] [place] [facility] Comment on above: Order Comment: [facility] Testing performed at: [employer], [facility], [address] [facility], [address] [place] [address], [address] [place] [address], Freezer Assistant: Erick Zhou MD [facility] Collection Date/Time: [facility] Results Received Date/Time: [facility] Reported Date/Time: Performed By: #### % 8293, 968T, 81822N, 14575, 42A, 88262X #### [facility] Default [address] [place] [address] Protein [Mass/Vol] 6.4 g/dL Normal 6.1-8.1 Maria Ines gerard [place] [facility] Comment on above: Order Comment: Quest Testing performed at: [employer], [facility], [address] [facility], [address] [place] [address], [address] [place] [address], Freezer Assistant: Erick Zhou MD Quest Collection Date/Time: [facility] Results Received Date/Time: [facility] Reported Date/Time: Performed By: #### % 8293, 968T, 46296F, 94498, 42A, 73109Q #### [facility] Default [address] [place] [address] Sodium [Moles/Vol] 127 mmol/L Low 135-146 Maria Ines gerard [place] [facility] Comment on above: Order Comment: [facility] Testing performed at: [employer], [facility], [address] [facility], [address] [place] [address], [address] [place] [address], Freezer Assistant: Erick Zhou MD Quest Collection Date/Time: Quest Results Received Date/Time: [facility] Reported Date/Time: Performed By: #### % 8293, 968T, 45545A, 00585, 42A, 60104K #### [facility] Default [address] [place] [address] TBIL <0.3 Normal 0.2-1.2 [facility] Comment on above: Order Comment: Quest Testing performed at: [employer], [facility], [address] [facility], [address] [place] [address], [address] [place] [address], Freezer Assistant: Erick Zhou MD Quest Collection Date/Time: Quest Results Received Date/Time: [facility] Reported Date/Time: Performed By: #### % 8293, 968T, 93904C, 48803, 42A, 72853W #### [facility] Default [address] [place] [address] Urea nitrogen [Mass/Vol] 21 mg/dL Normal 7-25 [facility] Comment on above: Order Comment: Quest Testing performed at: [employer], [facility], [address] [facility], [address] [place] [address], [address] [place] [address], Freezer Assistant: Erick Zhou MD Quest Collection Date/Time: Quest Results Received Date/Time: [facility] Reported Date/Time: Result Comment: Spec imen lipemic. Cholesterol, HDL and/or Triglyceride results (if ordered) were obtained from original specimen. Results for other analytes impacted by lipemia were obtained after ultracentrifugation of the specimen to remove interfering lipids. Performed By: #### % 8293, 968T, 95983N, 50127, 42A, 06488B #### [facility] Default [address] [place] [address] Q - DLDL REFLEXon 04-17-2021 DIRECT LDL TNP Normal [facility] Comment on above: Order Comment: [facility] Testing performed at: [employer], [facility], [address] , [address] [place] [address], [address] [place] [address], Freezer Assistant: Erick Zhou MD Quest Collection Date/Time: Quest Results Received Date/Time: Quest Reported Date/Time: Result Comment: Test not performed. Extremely high Triglycerides values (>1293 mg/dL) interfere with the dLDL assay. Performed By: #### % 8293, 968T, 16054P, 47090, 42A, 48604G #### [facility] Default [address] [place] [address] Q - HEMOGLOBIN A1C WITH EAGo n 04-17-2021 eAG (mg/dL) SEE NOTE Normal [facility] Comment on above: Order Comment: [facility] Testing performed at: [employer], [facility], [address] [place] [address], [address] [place] [address], [address], Freezer Assistant: Erick Zhou MD Quest Collection Date/Time: Quest Results Received Date/Time: [facility] Reported Date/Time: Result Comment: eAG cannot be calculated. Hemoglobin A1c result exceeds the linearity of the assay. Performed By: #### % 8293, 968T, 33979A, 00958, 42A, 84484K #### [facility] Default [address] [place] [address] HbA1c (Bld) [Mass fraction] % High <5.7 [facility] Comment on above: Order Comment: Quest Testing performed at: WebNotes, [facility], [address] [facility], [address] [place] [address], [address], Freezer Assistant: Erick Zhou MD Quest Collection Date/Time: Quest Results Received Date/Time: [facility] Reported Date/Time: Result Comment: Veri fied by repeat analysis. For someone without known diabetes, a hemoglobin A1c value of 6.5% or greater indicates that they may have diabetes and this should be confirmed with a follow-up test. For someone with known diabetes, a value <7% indicates that their diabetes is well controlled and a value greater than or equal to 7% indicates suboptimal control. A1c targets should be individualized based on duration of diabetes, age, comorbid conditions, and other considerations. Currently, no consensus exists regarding use of hemoglobin A1c for diagnosis of diabetes for children. Performed By: #### % 8293, 968T, 18380W, 65861, 42A, 97189Q #### [facility] Default [address] [place] [address] Q - Lipid Panelon 04-17-2021 Cholesterol [Mass/Vol] 710 mg/dL High <200 No [facility]thern [place] [facility] Comment on above: Order Comment: [facility] Testing performed at: [employer], [facility], [address] [place] [address], [address] [place] [address], [address] [place] [address], Freezer Assistant: Erick Zhou MD Quest Collection Date/Time: Quest Results Received Date/Time: Quest Reported Date/Time: Result Comment: Veri fied by repeat analysis. Performed By: #### % 8293, 968T, 08775Q, 23692, 42A, 07334V #### [facility] Default [address] [place] [address] Cholesterol in HDL [Mass/Vol] 30 mg/dL Low > OR = 50 [facility] Comment on above: Order Comment: Quest Testing performed at: [facility], [address] [place] [address], [address] [place] [address], [address] [place] [address], Freezer Assistant: Erick Zhou MD Quest Collection Date/Time: Quest Results Received Date/Time: Quest Reported Date/Time: Performed By: #### % 8293, 968T, 72908K, 28512, 42A, 40025C #### [facility] Default [address] [place] [address] Cholesterol.total/Adelaida sterol in HDL [Mass ratio] 23.7 {ratio} High <5.0 [facility] Comment on above: Order Comment: [facility] Testing performed at: [employer], [facility], [address] [place] [address], [address] [place] [address], [address] [place] [address], Freezer Assistant: Erick Zhou MD Quest Collection Date/Time: Quest Results Received Date/Time: [facility] Reported Date/Time: Performed By: #### % 8293, 968T, 52201S, 35256, 42A, 33438T #### [facility] Default [address] [place] [address] LDLD SEE NOTE Normal [facility] Specialist Comment on above: Order Comment: Quest Testing performed at: Web[employer], [facility], [address], [address] [place] [address], [address], Freezer Assistant: Erick Zhou MD Quest Collection Date/Time: Quest Results Received Date/Time: [facility] Reported Date/Time: Result Comment: LDL cholesterol not calculated. Triglyceride levels greater than 400 mg/dL invalidate calculated LDL results. Reference range: <100 Desirable range <100 mg/dL for primary prevention; <70 mg/dL for patients with CHD or diabetic patients with > or = 2 CHD risk factors. LDL-C is now calculated using the Esau-Noy calculation, which is a validated novel method providing better accuracy than the Friedewald equation in the estimation of LDL-C. Esau SS et al. SEGUNDO. 2013;310(19): 1914-4517 (http://education.[employer]/faq/VLH711) Performed By: #### % 8293, 968T, 23702K, 40163, 42A, 26003B #### [facility] Default [address] [place] [address] NON HDL CHOLESTEROL 680 mg/dL (calc) High <130 [facility] Comment on above: Order Comment: Quest Testing performed at: [employer], [facility], [address], [address] [place] [address], [address], Freezer Assistant: Erick Zhou MD Quest Collection Date/Time: Quest Results Received Date/Time: [facility] Reported Date/Time: Result Comment: For patients with diabetes plus 1 major ASCVD risk factor, treating to a non-HDL-C goal of <100 mg/dL (LDL-C of <70 mg/dL) is considered a therapeutic option. Performed By: #### % 8293, 968T, 23115N, 56283, 42A, 54173B #### [facility] Default [address] [place] [address] Triglyceride [Mass/Vol] mg/dL High <150 N [facility] Specialist Comment on above: Order Comment: Quest Testing performed at: [employer], [facility], [address], [address] [place] [address], [address], Freezer Assistant: Erick Zhou MD Quest Collection Date/Time: Quest Results Received Date/Time: [facility] Reported Date/Time: Result Comment: Veri fied by repeat analysis. If a non-fasting specimen was collected, consider repeat triglyceride testing on a fasting specimen if clinically indicated. Reed et al. J. of Clin. Lipidol. 2015;9:129-169. There is increased risk of pancreatitis when the triglyceride concentration is very high (> or = 500 mg/dL, especially if > or = 1000 mg/dL). Reed et al. J. of Clin. Lipidol. 2015;9:129-169. Performed By: #### % 8293, 968T, 04431Z, 21455, 42A, 31536L #### [facility] Default [address] [place] [address] Q - TSH WITH REFLEX TO FREE T4on 04-17-2021 TSH W/REFLEX TO FT4 3.42 mIU/L Normal [facility] Comment on above: Order Comment: Quest Testing performed at: [employer], [facility], [address], [address] [place], [address], Freezer Assistant: Erick Zhou MD Quest Collection Date/Time: Quest Results Received Date/Time: [facility] Reported Date/Time: Result Comment: Refe rence Range > or = 20 Years 0.40-4.50 Ranges First trimester 0.26-2.66 Second trimester 0.55-2.73 Third trimester 0.43-2.91 Performed By: #### % 8293, 968T, 01361A, 56163, 42A, 32214T #### [facility] Default [address] [place] [address] CBC auto differentialOrdered By: Michelle Wells on 11-22-2020 [facility] Eos # 0.18 [employer] [facility] Work Phone: Absolute Immature Granulocyte <0.03 [employer] Work Phone: Absolute Lymph # 1.96 [employer] Work Phone: Absolute Glacier # 0.54 [employer] Work Phone: Basophils (Bld) [#/Vol] 0.06 10*3/uL [employer] Phone: Basophils/100 WBC (Bld) 1 % 0 - 2 % M [facility] Work Phone: Differential Type NOT REPORTED [employer] Phone: Eosinophils/100 WBC (Bld) 3 % 1 - 4 % [employer] Phone: Hematocrit (Bld) [Volume fraction] 40.0 % 36.3 - 47.1 % [employer] Phone: Hemoglobin.gastrointest inal spec 1 Ql (Stl) 14.0 g/dL 11.9 - 15.1 g/dL [employer] Phone: Immature granulocytes/100 WBC (Bld) 0 % 0 [employer] Phone: Interpretation and review of laboratory results Abnormal [employer] Phone: Lymphocytes/100 WBC (Bld) 31 % 24 - 43 % [employer] Phone: MCH (RBC) [Entitic mass] 30.4 pg 25.2 - 33.5 pg [employer] Phone: MCHC (RBC) [Mass/Vol] 35.0 g/dL High 28.4 - 34.8 g/dL [employer] Phone: MCV (RBC) [Entitic vol] 87.0 fL 82.6 - 102.9 fL [employer] Phone: Monocytes/100 WBC (Bld) 9 % 3 - 12 % M [facility] [employer] Work Phone: NRBC Automated 0.0 0.0 per 100 WBC [employer] Phone: Platelet distribution width (Bld) [Ratio] 12.5 % 11.8 - 14.4 % [employer] Phone: Platelet Estimate NOT REPORTED [facility], [facility] CenterInsiders@ Project Phone: Platelet mean volume (Bld) [Entitic vol] 10.6 fL 8.1 - 13.5 fL [employer] Phone: Platelets (Bld) [#/Vol] 323 10*3/uL [employer] Phone: RBC (Bld) [#/Vol] 4.60 10*6/uL 3.95 - 5.1 1 m/uL [employer] Phone: RBC (Bld) [#/Vol] NOT REPORTED [employer] Phone: Segmented neutrophils/100 WBC (Bld) 56 % 36 - 65 % [employer] Work Phone: Segs Absolute 3.52 [employer] Work Phone: WBC (Bld) [#/Vol] 6.3 10*3/uL [employer] Work Phone: WBC (Bld) [#/Vol] NOT REPORTED [employer] Phone: [employer] Work Phone: CBC with Diffon 11-22-2020 Abs. Basophil 0.06 k/uL Normal 0.00-0.20 [facility] Comment on above: Performed By: #### C MPX, CDP #### [facility] [address] [place] [address] [place], [place] [id number] Laboratory Coordinator: Oc Bay MD #### GLYHGB #### [address] [id number] Laboratory Coordinator: Jonathan Stewart MD Abs.Imm.Granulocyte <0.03 Normal 0.00-0.[address] [facility] Comment on above: Performed By: #### C MPX, CDP #### [facility] [address] [place] [address] [place] [id number] Laboratory Coordinator: Oc Bay MD #### GLYHGB #### [address] [id number] Laboratory Coordinator: Jonathan Stewart MD Abs.Neutrophil (Seg) 3.52 k/uL Normal 1.50-8.10 [facility] Comment on above: Performed By: #### C MPX, CDP #### [facility] [address] [place] [address] [place] [id number] Laboratory Coordinator: Oc Bay MD #### GLYHGB #### [address] [address] Laboratory Coordinator: Jonathan Stewart MD Basophils/100 WBC (Bld) 1 % Normal 0-2 M [facility] Comment on above: Performed By: #### C MPX, CDP #### [address] [place], [place] 2936683 Laboratory Coordinator: Oc Bay MD #### GLYHGB #### [address] [address] Laboratory Coordinator: Jonathan Stewart MD Eosinophils (Bld) [#/Vol] 0.18 10*3/uL Normal 0.00-0.[address] [facility] Comment on above: Performed By: #### C MPX, CDP #### [address] [place], [place] 0841083 Laboratory Coordinator: Oc Bay MD #### GLYHGB #### [address] [id number] Laboratory Coordinator: Jonathan Stewart MD Eosinophils/100 WBC (Bld) 3 % Normal 1-[address] [facility] Comment on above: Performed By: #### C MPX, CDP #### [address] [place], [place] 1865283 Laboratory Coordinator: Oc Bay MD #### GLYHGB #### [address] [id number] Laboratory Coordinator: Jonathan Stewart MD Erythrocyte distribution width (RBC) [Ratio] 12.5 % Normal 11.8-14.[address] [facility] Comment on above: Performed By: #### C MPX, CDP #### [address] [place], [place] 3131483 Laboratory Coordinator: Oc Bay MD #### GLYHGB #### [address] [id number] Laboratory Coordinator: Jonathan Stewart MD Hematocrit (Bld) [Volume fraction] 40.0 % Normal 36.3-47.[address] [facility] Comment on above: Performed By: #### C MPX, CDP #### [address] [place], [place] 9884783 Laboratory Coordinator: Oc Bay MD #### GLYHGB #### [address] [id number] Laboratory Coordinator: Jonathan Stewart MD Hemoglobin (Bld) [Mass/Vol] 14.0 g/dL Normal 11.9-15.[address] [facility] Comment on above: Performed By: #### C MPX, CDP #### [facility] [address] [place], [place] 5629983 Laboratory Coordinator: Oc Bay MD #### GLYHGB #### [address] [id number] Laboratory Coordinator: Jonathan Stewart MD Immature granulocytes/100 WBC (Bld) 0 % Normal [address] [facility] Comment on above: Performed By: #### C MPX, CDP #### [facility] [address] [place] [id number] Laboratory Coordinator: Oc Bay MD #### GLYHGB #### [address] [address] Laboratory Coordinator: Jonathan Stewart MD Lymphocytes (Bld) [#/Vol] 1.96 10*3/uL Normal 1.10-3.[address] [facility] Comment on above: Performed By: #### C MPX, CDP #### [address] [place] [id number] Laboratory Coordinator: Oc Bay MD #### GLYHGB #### [address] [address] Laboratory Coordinator: Jonathan Stewart MD Lymphocytes/100 WBC (Bld) 31 % Normal 24-[address] [facility] Comment on above: Performed By: #### C MPX, CDP #### [facility] [address] [place] [address] Dr. [place] [id number] Laboratory Coordinator: Oc Bay MD #### GLYHGB #### [address] [address] Laboratory Coordinator: Jonathan Stewart MD MCH (RBC) [Entitic mass] 30.4 pg Normal 25.2-33.[address] [facility] Comment on above: Performed By: #### C MPX, CDP #### [facility] [address] [place] [address] [place] [address] Laboratory Coordinator: Oc Bay MD #### GLYHGB #### [place] [address] [place], [place] [id number] Laboratory Coordinator: Jonathan Stewart MD MCHC (RBC) [Mass/Vol] 35.0 g/dL High 28.4-34.8 [facility] Comment on above: Performed By: #### C MPX, CDP #### [address] [place] [id number] Laboratory Coordinator: Oc Bay MD #### GLYHGB #### [place] [id number] Laboratory Coordinator: Jonathan Stewart MD MCV (RBC) [Entitic vol] 87.0 fL Normal 82.6-102.9 [facility] Comment on above: Performed By: #### C MPX, CDP #### [address] [place] [id number] ( Laboratory Coordinator: Oc Bay MD #### GLYHGB #### [place] [address] Laboratory Coordinator: Jonathan Stewart MD Monocytes (Bld) [#/Vol] 0.54 10*3/uL Normal 0.10-1.[address] [facility] Comment on above: Performed By: #### C MPX, CDP #### [address] [place] [id number] Laboratory Coordinator: Oc Bay MD #### GLYHGB #### [place] [id number] Laboratory Coordinator: Jonathan Stewart MD Monocytes/100 WBC (Bld) 9 % Normal 3-12 [facility] Comment on above: Performed By: #### C MPX, CDP #### [address] [place] [id number] Laboratory Coordinator: Oc Bay MD #### GLYHGB #### [place] [address] [place], [place] 2116608 Laboratory Coordinator: Jonathan Stewart MD Neutrophil (Seg) 56 % Normal 36-65 [facility] Comment on above: Performed By: #### C MPX, CDP #### [facility] [address] [place] [id number] Laboratory Coordinator: Oc Bay MD #### GLYHGB #### [address] [id number] Laboratory Coordinator: Jonathan Stewart MD NRBC Automated 0.0 per 100 WBC Normal 0.[address] [facility] Comment on above: Performed By: #### C MPX, CDP #### [facility] [address] [place] [address] Dr. [place] [id number] Laboratory Coordinator: Oc Bay MD #### GLYHGB #### [address] [address] Laboratory Coordinator: Jonathan Stewart MD Platelet mean volume (Bld) [Entitic vol] 10.6 fL Normal 8.1-13.[address] [facility] Comment on above: Performed By: #### C MPX, CDP #### [facility] [address] [place] [address] Dr. [place] [id number] Laboratory Coordinator: Oc Bay MD #### GLYHGB #### [address] [address] Laboratory Coordinator: Jonathan Stewart MD Platelets (Bld) [#/Vol] 323 10*3/uL Normal 138-[address] [facility] Comment on above: Performed By: #### C MPX, CDP #### [facility] [address] [place] [address] Dr. [place], [place] [id number] Laboratory Coordinator: Oc Bay MD #### GLYHGB #### [facility] [address] [place] [address] Laboratory Coordinator: Jonathan Stewart MD RBC (Bld) [#/Vol] 4.60 10*6/uL Normal 3.95-5.[address] [facility] Comment on above: Performed By: #### C MPX, CDP #### [address] [place] [address] Laboratory Coordinator: Oc Bay MD #### GLYHGB #### [address] [address] Laboratory Coordinator: Jonathan Stewart MD WBC (Bld) [#/Vol] 6.3 10*3/uL Normal 3.5-11.[address] [facility] Comment on above: Performed By: #### C MPX, CDP #### [address] [place] [address] Laboratory Coordinator: Oc Bay MD #### GLYHGB #### [address] [address] Laboratory Coordinator: Jonathan Stewart MD Auto Diff Performed NOT REPORTED Normal [facility] Comment on above: Performed By: #### C MPX, CDP #### [address] [place] [address] Laboratory Coordinator: Oc Bay MD #### GLYHGB #### [address] [address] Laboratory Coordinator: Jonathan Stewart MD Platelet Estimate NOT REPORTED Normal [facility] Comment on above: Performed By: #### C MPX, CDP #### [address] [place] [address] Laboratory Coordinator: Oc Bay MD #### GLYHGB #### [address] [address] Laboratory Coordinator: Jonathan Stewart MD RBC morphology finding Nom (Bld) NOT REPORTED Normal [facility] Comment on above: Performed By: #### C MPX, CDP #### [facility] [address] [place] [address] Laboratory Coordinator: Oc Bay MD #### GLYHGB #### [address] [address] Laboratory Coordinator: Jonathan Stewart MD WBC Morphology NOT REPORTED Normal [facility] Comment on above: Performed By: #### C MPX, CDP #### [facility] [address] [place] [address] Dr. [place], [place] [id number] Laboratory Coordinator: Oc Bay MD #### GLYHGB #### [address] [address] Laboratory Coordinator: Jonathan Stewart MD Comp Metabolic Pr/rfx MGon 0 - AST [Catalytic activity/Vol] U/L Normal <[address] [facility] Comment on above: Performed By: #### C MPX, CDP #### [address] [place] [address] Laboratory Coordinator: Oc Bay MD #### GLYHGB #### [address] [address] Laboratory Coordinator: Jonathan Stewart MD ALT [Catalytic activity/Vol] U/L Low 5-[address] [facility] Comment on above: Performed By: #### C MPX, CDP #### [facility] [address] [place] [address] Dr. [place], [place] [id number] Laboratory Coordinator: Oc Bay MD #### GLYHGB #### [address] [address] Laboratory Coordinator: Jonathan Stewart MD Bilirubin [Mass/Vol] mg/dL Low 0.3-1.2 [facility] Comment on above: Performed By: #### C MPX, CDP #### [address] [place] [address] Laboratory Coordinator: Oc Bay MD #### GLYHGB #### [facility] [address] [place], [place] [id number] Laboratory Coordinator: Jonathan Stewart MD Potassium [Moles/Vol] 3.4 mmol/L Low 3.7-5.3 [facility] Comment on above: Performed By: #### C MPX, CDP #### [address] [place] [address] Laboratory Coordinator: Oc Bay MD #### GLYHGB #### [place] [address] [place], [place] 2308208 Laboratory Coordinator: Jonathan Stewart MD (cont.) [facility] Comment on above: Result Comment: Aver age GFR for 40-49 years old: 99 mL/min/1.73sq m Chronic Kidney Disease: <60 mL/min/1.73sq m Kidney failure: <15 mL/min/1.73sq m eGFR calculated using average adult body mass. Additional eGFR calculator available at: http://www.Socialmoth.MedPro/multiple_crcl_2012.htm Performed By: #### C YIMIX, CDP #### [address] [place] [address] Laboratory Coordinator: Oc Bay MD #### GLYHGB #### [facility] [address] [place], [place] [id number] Laboratory Coordinator: Jonathan Stewart MD Albumin [Mass/Vol] 2.8 g/dL Low 3.5-5.[address] [facility] Comment on above: Performed By: #### C MPX, CDP #### [address] [place] [address] Laboratory Coordinator: Oc Bay MD #### GLYHGB #### [place] [address] [place] [address] Laboratory Coordinator: Jonathan Stewart MD Albumin/Glob Ratio 1.0 Normal 1.0-2.[address] [facility] Comment on above: Performed By: #### C MPX, CDP #### [facility] [address] [place], [place] [id number] Laboratory Coordinator: Oc Bay MD #### GLYHGB #### [address] [address] Laboratory Coordinator: Jonathan Stewart MD Alkaline Phos 83 U/L Normal 35-104 [facility] Comment on above: Performed By: #### C MPX, CDP #### [facility] [address] [place], [place] [id number] Laboratory Coordinator: Oc Bay MD #### GLYHGB #### [address] [address] Laboratory Coordinator: Jonathan Stewart MD Anion gap [Moles/Vol] 10 mmol/L Normal 9-17 [facility] Comment on above: Performed By: #### C MPX, CDP #### [facility] [address] [place], [place] [id number] Laboratory Coordinator: Oc Bay MD #### GLYHGB #### [address] [address] Laboratory Coordinator: Jonathan Stewart MD BUN/CRE Ratio 24 High 9-20 [facility] Comment on above: Performed By: #### C MPX, CDP #### [facility] [address] [place], [place] 0874183 Laboratory Coordinator: Oc Bay MD #### GLYHGB #### [address] [id number] Laboratory Coordinator: Jonathan Stewart MD Calcium [Mass/Vol] 8.9 mg/dL Normal 8.6-10.[address] [facility] Comment on above: Performed By: #### C MPX, CDP #### [facility] [address] [place], [place] [id number] Laboratory Coordinator: Oc Bay MD #### GLYHGB #### [address] [id number] Laboratory Coordinator: Jonathan Stewatr MD Chloride [Moles/Vol] 99 mmol/L Normal 98-107 [facility] Comment on above: Performed By: #### C MPX, CDP #### [facility] [address] [place] [address] Dr. [place], [place] 4852583 Laboratory Coordinator: Oc Bay MD #### GLYHGB #### [address] [id number] Laboratory Coordinator: Jonathan Stewart MD CO2 [Moles/Vol] 23 mmol/L Normal 20-31 [facility] Comment on above: Performed By: #### C MPX, CDP #### [address] [place], [place] 9010583 Laboratory Coordinator: Oc Bay MD #### GLYHGB #### [address] [address] Laboratory Coordinator: Jonathan Stewart MD Creatinine [Mass/Vol] 0.42 mg/dL Low 0.50-0.90 [facility] Comment on above: Performed By: #### C MPX, CDP #### [facility] [address] [place] [address] Dr. [place], [place] [id number] Laboratory Coordinator: Oc Bay MD #### GLYHGB #### [address] [address] Laboratory Coordinator: Jonathan Stewart MD GFR, Amer >60 Normal >60 [facility] Comment on above: Performed By: #### C MPX, CDP #### [facility] [address] [place], [place] [phone] Laboratory Coordinator: Oc Bay MD #### GLYHGB #### [place] [address] [place] [address] Laboratory Coordinator: Jonathan Stewart MD GFR,non Amer >60 Normal >60 [facility] Comment on above: Performed By: #### C MPX, CDP #### [facility] [address] [place], [place] 0097783 Laboratory Coordinator: Oc Bay MD #### GLYHGB #### [address] [address] Laboratory Coordinator: Jonathan Stewart MD Glucose [Mass/Vol] 145 mg/dL High 70-[address] [facility] Comment on above: Performed By: #### C MPX, CDP #### [facility] [address] [place], [place] 6324583 Laboratory Coordinator: cO Bay MD #### GLYHGB #### [address] [address] Laboratory Coordinator: Jonathan Stewart MD Protein [Mass/Vol] 5.5 g/dL Low 6.4-8.[address] [facility] Comment on above: Performed By: #### C MPX, CDP #### [facility] [address] [place], [place] 5644783 Laboratory Coordinator: Oc Bay MD #### GLYHGB #### [address] [address] Laboratory Coordinator: Jonathan Stewart MD Sodium [Moles/Vol] 132 mmol/L Low 135-[address] [facility] Comment on above: Performed By: #### C MPX, CDP #### [facility] [address] [place] [address] Laboratory Coordinator: Oc Bya MD #### GLYHGB #### [place] [address] [place], [place] 7571908 Laboratory Coordinator: Jonathan Stewart MD Staging: Normal [facility] Comment on above: Result Comment: Stag e 1: Some kidney damage normal GFR Stage 2: Mild kidney damage GFR 60-89 Stage 3: Moderate kidney damage GFR 30-59 Stage 4: Severe kidney damage GFR 15-29 Stage 5: Severe kidney damage GFR <15 ESRD - chronic treatment by dialysis or transplant Performed By: #### C MPX, CDP #### [address] [place] [address] Laboratory Coordinator: Oc Bay MD #### GLYHGB #### [address] [id number] Laboratory Coordinator: Jonathan Stewart MD Urea nitrogen [Mass/Vol] 10 mg/dL Normal 6-[address] [facility] Comment on above: Performed By: #### C MPX, CDP #### [address] [place] [address] Laboratory Coordinator: Oc Bay MD #### GLYHGB #### [address] [id number] Laboratory Coordinator: Jonathan Stewart MD Comprehensive Metabolic Pane l w/ Reflex to MGOrdered By: Michelle Wells on 11-22-2020 Albumin [Mass/Vol] 2.8 g/dL Low 3.5 - 5.2 g/dL [facility] Phone: Albumin/Globulin [Mass ratio] 1.0 {ratio} [facility] Phone: ALP (Bld) [Catalytic activity/Vol] 83 U/L 35 - 104 U/L [facility] Phone: ALT [Catalytic activity/Vol] U/L Low 5 - 33 U/L [facility] Phone: Anion gap [Moles/Vol] 10 mmol/L 9 - 17 mmol/L [facility] Phone: AST [Catalytic activity/Vol] U/L <32 U/L [facility] Phone: Bilirubin [Mass/Vol] mg/dL Low 0.3 - 1 .2 mg/dL [facility] Phone: Calcium [Mass/Vol] 8.9 mg/dL 8.6 - 10. 4 mg/dL [facility] Phone: Chloride [Moles/Vol] 99 mmol/L 98 - 10 7 mmol/L [facility] Phone: CO2 [Moles/Vol] 23 mmol/L 20 - 31 mmol/L [facility] Phone: Creatinine [Mass/Vol] 0.42 mg/dL Low 0.50 - 0.90 mg/dL [facility] Phone: Free PSA/Total PSA [Mass fraction] 5.5 g/dL Low 6.4 - 8.3 g/dL [facility] Phone: GFR >60 >60 mL/min [facility] Phone: GFR Non- >60 >60 mL/min [facility] Phone: Glucose [Mass/Vol] 145 mg/dL High 70 - 99 mg/dL [facility] [employer] Work Phone: Interpretation and review of laboratory results Abnormal [facility] Phone: Potassium [Moles/Vol] 3.4 mmol/L Low 3.7 - 5.3 mmol/L [facility] Phone: Sodium [Moles/Vol] 132 mmol/L Low 135 - 144 mmol/L [facility] [employer] Phone: Urea nitrogen (BldV) [Mass/Vol] 10 mg/dL 6 - 20 mg/dL [facility] Phone: Urea nitrogen/Creatinine (Bld) [Mass ratio] 24 High [facility] Phone: [facility] Phone: Glucose, Whole BloodOrdered By: Michelle Wells on 11-22-2020 Glucose [Mass/Vol] 111 mg/dL High 74 - 100 mg/dL [facility] Phone: Interpretation and review of laboratory results Abnormal [facility] Phone: [facility] Phone: Hemoglobin A1Con 11-22-2020 Glucose [Mass/Vol] 413 mg/dL Normal [facility] Comment on above: Result Comment: The ADA and AACC recommend providing the estimated average glucose result to permit better patient understanding of their HBA1c result. Performed By: #### C MPX, CDP #### [address] [place] [address] Laboratory Coordinator: Oc Bay MD #### GLYHGB #### [facility] [employer] [address] [place] [address] Laboratory Coordinator: Jonathan Stewart MD HbA1c (Bld) [Mass fraction] 16.0 % High 4.0-6.[address] [facility] Comment on above: Performed By: #### C MPX, CDP #### [address] [place] [address] Laboratory Coordinator: Oc Bay MD #### GLYHGB #### [facility] [employer] [address] [place] [address] Laboratory Coordinator: Jonathan Stewart MD Laboratory - Chemistry and C hemistry - challengeOrdered By: Michelle Wells on 11-22-2020 GFR/1.73 sq M.predicted MDRD (S/P/Bld) [Vol rate/Area] [facility] Phone: Comment on above: Average GFR for 40-4 9 years old: 99 mL/min/1.73sq m Chronic Kidney Disease: <60 mL/min/1.73sq m Kidney failure: <15 mL/min/1.73sq m eGFR calculated using average adult body mass. Additional eGFR calculator available at: http://www.[employer]/multiple_crcl_2012.htm Stage 1: Some kidney damage normal GFR Stage 2: Mild kidney damage GFR 60-89 Stage 3: Moderate kidney damage GFR 30-59 Stage 4: Severe kidney damage GFR 15-29 Stage 5: Severe kidney damage GFR <15 ESRD - chronic treatment by dialysis or transplant Magnesiumon 11-22-2020 Magnesium [Mass/Vol] 1.9 mg/dL Normal 1.6-2.6 [facility] Comment on above: Performed By: #### C MPX, CDP #### [facility] [address] [place] [address] Laboratory Coordinator: Oc Bay MD #### GLYHGB #### [facility] [address] [place] [address] Laboratory Coordinator: Jonathan Stewart MD MagnesiumOrdered By: Rene Wells on 11-22-2020 Magnesium [Mass/Vol] 1.9 mg/dL 1.6 - 2 .6 mg/dL [facility] Work Phone: [facility] Work Phone: CBC auto differentialOrdered By: Michelle Wells on 11-21-2020 Absolute Eos # 0.18 [facility] Work Phone: Absolute Immature Granulocyte 0.[address] [facility] Work Phone: Absolute Lymph # 1.89 [facility] Work Phone: [facility] Glacier # 0.[address] [facility] Work Phone: Basophils (Bld) [#/Vol] 0.06 10*3/uL [facility] Work Phone: Basophils/100 WBC (Bld) 1 % 0 - 2 % M [employer] Phone: Differential Type NOT REPORTED [facility] Phone: Eosinophils/100 WBC (Bld) 3 % 1 - 4 % [facility] Phone: Hematocrit (Bld) [Volume fraction] 39.0 % 36.3 - 47.1 % [facility] Phone: Hemoglobin.gastrointest inal spec 1 Ql (Stl) 13.6 g/dL 11.9 - 15.1 g/dL [facility] Phone: Immature granulocytes/100 WBC (Bld) 1 % High 0 [facility] Phone: Interpretation and review of laboratory results Abnormal [facility] Phone: Lymphocytes/100 WBC (Bld) 31 % 24 - 43 % [facility] Phone: MCH (RBC) [Entitic mass] 30.4 pg 25.2 - 33.5 pg [facility] Phone: MCHC (RBC) [Mass/Vol] 34.9 g/dL High 28.4 - 34.8 g/dL [facility] Phone: MCV (RBC) [Entitic vol] 87.1 fL 82.6 - 102.9 fL [facility] Phone: Monocytes/100 WBC (Bld) 9 % 3 - 12 % M [employer] Phone: Morphology Husam (Bld) [Interp] Platelet clumps present, count appears increased. [facility] Phone: NRBC Automated 0.0 0.0 per 100 WBC [facility] Phone: Platelet distribution width (Bld) [Ratio] 12.5 % 11.8 - 14.4 % [facility] Phone: Platelet Estimate NOT REPORTED [facility] Phone: Platelet mean volume (Bld) [Entitic vol] NOT REPORTED 8.1 - 13.5 fL [facility] Phone: Platelets (Bld) [#/Vol] See Reflexed IPF Result [facility] Phone: RBC (Bld) [#/Vol] 4.48 10*6/uL 3.95 - 5.1 1 m/uL [facility] Phone: RBC (Bld) [#/Vol] NOT REPORTED [facility] Phone: Segmented neutrophils/100 WBC (Bld) 55 % 36 - 65 % [facility] Phone: Segs Absolute 3.36 [employer] Work Phone: WBC (Bld) [#/Vol] 6.1 10*3/uL [facility] Phone: WBC (Bld) [#/Vol] NOT REPORTED [facility] Phone: [facility] Phone: CBC with Diffon 11-21-2020 Abs. Basophil 0.06 k/uL Normal 0.00-0.20 [facility] Comment on above: Performed By: #### I LAY SAUNDERS, CDP #### [facility] [address] [place] [address] [place] [address] Laboratory Coordinator: Oc Bay MD Abs.Imm.Granulocyte 0.06 k/uL Normal 0.00-0.[address] [facility] Comment on above: Performed By: #### I LAY SAUNDERS, CDP #### [facility] [address] [place] [address] Laboratory Coordinator: Oc Bay MD Abs.Neutrophil (Seg) 3.36 k/uL Normal 1.50-8.10 [facility] Comment on above: Performed By: #### I PF, CMPX, CDP #### [facility] [address] [place], [place] [id number] Laboratory Coordinator: Oc Bay MD Basophils/100 WBC (Bld) 1 % Normal 0-2 [facility] Comment on above: Performed By: #### I PF, CMPX, CDP #### [facility] [address] [place], [place] [address] Laboratory Coordinator: Oc Bay MD Eosinophils (Bld) [#/Vol] 0.18 10*3/uL Normal 0.00-0.[address] [facility] Comment on above: Performed By: #### I PF, CMPX, CDP #### [address] [place], [facility] Laboratory Coordinator: Oc Bay MD Eosinophils/100 WBC (Bld) 3 % Normal 1-[address] [facility] Comment on above: Performed By: #### I PF, CMPX, CDP #### [address] [place], [facility] Laboratory Coordinator: Oc Bay MD Immature granulocytes/100 WBC (Bld) 1 % High [address] [facility] Comment on above: Performed By: #### I PF, CMPX, CDP #### [address] [place], [place] [address] Laboratory Coordinator: Oc Bay MD Lymphocytes (Bld) [#/Vol] 1.89 10*3/uL Normal 1.10-3.[address] [facility] Comment on above: Performed By: #### I PF, CMPX, CDP #### [facility] [address] [place], [place] 1473583 Laboratory Coordinator: Oc Bay MD Lymphocytes/100 WBC (Bld) 31 % Normal 24-[address] [facility] Comment on above: Performed By: #### I PF, CMPX, CDP #### [facility] [address] [place], [place] 0448183 Laboratory Coordinator: Oc Bay MD Monocytes (Bld) [#/Vol] 0.55 10*3/uL Normal 0.10-1.[address] [facility] Comment on above: Performed By: #### I PF, CMPX, CDP #### [address] [place], [place] 5630583 Laboratory Coordinator: Oc Bay MD Monocytes/100 WBC (Bld) 9 % Normal 3-12 [facility] Comment on above: Performed By: #### I PF, CMPX, CDP #### [address] [place], [place] 9366183 Laboratory Coordinator: Oc Bay MD Morphology Husam (Bld) [Interp] Platelet clumps present, count appears increased. Normal [facility] Comment on above: Performed By: #### I PF, CMPX, CDP #### [address] [place], [place] 1297283 Laboratory Coordinator: Oc Bay MD Neutrophil (Seg) 55 % Normal 36-65 [facility] Comment on above: Performed By: #### I PF, CMPX, CDP #### [address] [place], [place] [id number] Laboratory Coordinator: Oc Bay MD Erythrocyte distribution width (RBC) [Ratio] 12.5 % Normal 11.8-14.[address] [facility] Comment on above: Performed By: #### I PF, CMPX, CDP #### [address] [place], [place] 3346483 Laboratory Coordinator: Oc Bay MD Hematocrit (Bld) [Volume fraction] 39.0 % Normal 36.3-47.[address] [facility] Comment on above: Performed By: #### I PF, CMPX, CDP #### [address] [place] [address] Laboratory Coordinator: Oc Bay MD Hemoglobin (Bld) [Mass/Vol] 13.6 g/dL Normal 11.9-15.[address] [facility] Comment on above: Performed By: #### I PF, CMPX, CDP #### [facility] [address] [place] [address] Dr[address] [place], [place] 9692583 Laboratory Coordinator: Oc Bay MD MCH (RBC) [Entitic mass] 30.4 pg Normal 25.2-33.[address] [facility] Comment on above: Performed By: #### I PF, CMPX, CDP #### [address] [place], [facility] Laboratory Coordinator: Oc Bay MD MCHC (RBC) [Mass/Vol] 34.9 g/dL High 28.4-34.8 [facility] Comment on above: Performed By: #### I PF, CMPX, CDP #### [address] [place], [facility] Laboratory Coordinator: Oc Bay MD MCV (RBC) [Entitic vol] 87.1 fL Normal 82.6-102.9 [facility] Comment on above: Performed By: #### I PF, CMPX, CDP #### [address] [place], [facility] Laboratory Coordinator: Oc Bay MD NRBC Automated 0.0 per 100 WBC Normal 0.[address] [facility] Comment on above: Performed By: #### I PF, CMPX, CDP #### [address] [place] [address] Laboratory Coordinator: Oc Bay MD Platelet Count See Reflexed IPF Result Normal 138-[address] [facility] Comment on above: Performed By: #### I PF, CMPX, CDP #### [facility] [address] [place] [address] Dr. [place], [facility] Laboratory Coordinator: Oc Bay MD RBC (Bld) [#/Vol] 4.48 10*6/uL Normal 3.95-5.[address] [facility] Comment on above: Performed By: #### I PF, CMPX, CDP #### [facility] [address] [place], [place] [id number] Laboratory Coordinator: Oc Bay MD WBC (Bld) [#/Vol] 6.1 10*3/uL Normal 3.5-11.[address] [facility] Comment on above: Performed By: #### I PF, CMPX, CDP #### [address] [place] [address] Laboratory Coordinator: Oc Bay MD Auto Diff Performed NOT REPORTED Normal [facility] Comment on above: Performed By: #### I PF, CMPX, CDP #### [facility] [address] [place] [address] Dr. [place], [place] [address] Laboratory Coordinator: Oc Bay MD MPV NOT REPORTED Normal 8.1-13.[address] [facility] Comment on above: Performed By: #### I PF, CMPX, CDP #### [address] [place] [address] Laboratory Coordinator: Oc Bay MD Platelet Estimate NOT REPORTED Normal [facility] Comment on above: Performed By: #### I PF, CMPX, CDP #### [facility] [address] [place] [address] [place] [address] Laboratory Coordinator: Oc Bay MD RBC morphology finding Nom (Bld) NOT REPORTED Normal [facility] [facility] Comment on above: Performed By: #### I PF, CMPX, CDP #### [address] [place] [address] Laboratory Coordinator: Oc Bay MD WBC Morphology NOT REPORTED Normal [facility] Comment on above: Performed By: #### I PF, CMPX, CDP #### [facility] [address] [place] [address] Laboratory Coordinator: Oc Bay MD Comp Metabolic Pr/rfx MGon 0 11-21-2020 AST [Catalytic activity/Vol] U/L Normal <[address] [facility] Comment on above: Performed By: #### I PF, CMPX, CDP #### [facility] [address] [place] [address] Laboratory Coordinator: Oc Bay MD Bilirubin [Mass/Vol] mg/dL Low 0.3-1.2 [facility] Comment on above: Performed By: #### I PF, CMPX, CDP #### [address] [place] [address] Laboratory Coordinator: Oc Bay MD ALT [Catalytic activity/Vol] U/L Low 5-[address] [facility] Comment on above: Performed By: #### I PF, CMPX, CDP #### [address] [place] [address] Laboratory Coordinator: Oc Bay MD (cont.) [facility] Comment on above: Result Comment: Aver age GFR for 40-49 years old: 99 mL/min/1.73sq m Chronic Kidney Disease: <60 mL/min/1.73sq m Kidney failure: <15 mL/min/1.73sq m eGFR calculated using average adult body mass. Additional eGFR calculator available at: http://www.Socialmoth.MedPro/multiple_crcl_2012.htm Performed By: #### I PF, CMPX, CDP #### [facility] [address] [place] [address] Laboratory Coordinator: Oc Bay MD Albumin [Mass/Vol] 2.8 g/dL Low 3.5-5.[address] [facility] Comment on above: Performed By: #### I PF, CMPX, CDP #### [address] [place], [place] [address] Laboratory Coordinator: Oc Bay MD Albumin/Glob Ratio 1.1 Normal 1.0-2.[address] [facility] Comment on above: Performed By: #### I PF, CMPX, CDP #### [facility] [address] [place] [address] Laboratory Coordinator: Oc Bay MD Alkaline Phos 86 U/L Normal 35-104 [facility] Comment on above: Performed By: #### I PF, CMPX, CDP #### [facility] [address] [place], [place] [id number] Laboratory Coordinator: Oc Bay MD Anion gap [Moles/Vol] 10 mmol/L Normal 9-17 [facility] Comment on above: Performed By: #### I PF, CMPX, CDP #### [facility] [address] [place], [place] [id number] Laboratory Coordinator: Oc Bay MD BUN/CRE Ratio 25 High 9-20 [facility] Comment on above: Performed By: #### I PF, CMPX, CDP #### [facility] [address] [place] [address] Laboratory Coordinator: Oc Bay MD Calcium [Mass/Vol] 8.0 mg/dL Low 8.6-10.[address] [facility] Comment on above: Performed By: #### I PF, CMPX, CDP #### [facility] [address] [place], [place] [id number] Laboratory Coordinator: Oc Bay MD Chloride [Moles/Vol] 100 mmol/L Normal 98-107 [facility] Comment on above: Performed By: #### I PF, CMPX, CDP #### [facility] [address] [place] [address] Laboratory Coordinator: Oc Bay MD CO2 [Moles/Vol] 21 mmol/L Normal 20-31 [facility] Comment on above: Performed By: #### I PF, CMPX, CDP #### [facility] [address] [place], [place] [id number] Laboratory Coordinator: Oc Bay MD Creatinine [Mass/Vol] 0.40 mg/dL Low 0.50-0.90 [facility] Comment on above: Performed By: #### I PF, CMPX, CDP #### [facility] [address] [place] [address] [address] [place], [place] 5338983 Laboratory Coordinator: Oc Bay MD GFR, Amer >60 Normal >60 [facility] Comment on above: Performed By: #### I PF, CMPX, CDP #### [facility] [address] [place] [address] [address] [place], [place] [id number] Laboratory Coordinator: Oc Bay MD GFR,non Amer >60 Normal >60 [facility] Comment on above: Performed By: #### I PF, CMPX, CDP #### [facility] [address] [place] [address] [address] [place], [place] [id number] Laboratory Coordinator: Oc Bay MD Glucose [Mass/Vol] 162 mg/dL High 70-[address] [facility] Comment on above: Performed By: #### I PF, CMPX, CDP #### [address] [place], [place] [id number] Laboratory Coordinator: Oc Bay MD Potassium [Moles/Vol] 3.8 mmol/L Normal 3.7-5.3 [facility] Comment on above: Performed By: #### I PF, CMPX, CDP #### [facility] [address] [place] [address] [address] [place], [place] [id number] Laboratory Coordinator: Oc Bay MD Protein [Mass/Vol] 5.3 g/dL Low 6.4-8.[address] [facility] Comment on above: Performed By: #### I PF, CMPX, CDP #### [facility] [address] [place] [address] [address] [place], [place] 4994483 Laboratory Coordinator: Oc Bay MD Sodium [Moles/Vol] 131 mmol/L Low 135-[address] [facility] Comment on above: Performed By: #### I PF, CMPX, CDP #### [facility] [address] [place] [address] Laboratory Coordinator: Oc Bay MD Staging: Normal [facility] Comment on above: Result Comment: Stag e 1: Some kidney damage normal GFR Stage 2: Mild kidney damage GFR 60-89 Stage 3: Moderate kidney damage GFR 30-59 Stage 4: Severe kidney damage GFR 15-29 Stage 5: Severe kidney damage GFR <15 ESRD - chronic treatment by dialysis or transplant Performed By: #### I PF, CMPX, CDP #### [facility] [address] [place] [address] Laboratory Coordinator: Oc Bay MD Urea nitrogen [Mass/Vol] 10 mg/dL Normal 6-[address] [facility] Comment on above: Performed By: #### I PF, CMPX, CDP #### [facility] [address] [place] [address] Laboratory Coordinator: Oc Bay MD Comprehensive Metabolic Pane l w/ Reflex to MGOrdered By: Michelle Wells on 11-21-2020 Albumin [Mass/Vol] 2.8 g/dL Low 3.5 - 5.2 g/dL [facility] Phone: Albumin/Globulin [Mass ratio] 1.1 {ratio} [facility]@ Project Phone: ALP (Bld) [Catalytic activity/Vol] 86 U/L 35 - 104 U/L [facility] Phone: ALT [Catalytic activity/Vol] U/L Low 5 - 33 U/L [facility] Phone: Anion gap [Moles/Vol] 10 mmol/L 9 - 17 mmol/L [facility] Phone: AST [Catalytic activity/Vol] U/L <32 U/L [facility] Phone: Bilirubin [Mass/Vol] mg/dL Low 0.3 - 1 .2 mg/dL [facility] Phone: Calcium [Mass/Vol] 8.0 mg/dL Low 8.6 - 10. 4 mg/dL [facility] Phone: Chloride [Moles/Vol] 100 mmol/L 98 - 10 7 mmol/L [facility] Project Phone: CO2 [Moles/Vol] 21 mmol/L 20 - 31 mmol/L [facility] Phone: Creatinine [Mass/Vol] 0.4 mg/dL Low 0.50 - 0.90 mg/dL [facility] Phone: Free PSA/Total PSA [Mass fraction] 5.3 g/dL Low 6.4 - 8.3 g/dL [facility]@ Project Phone: GFR >60 >60 mL/min [facility] Phone: GFR Non- >60 >60 mL/min [facility] Phone: Glucose [Mass/Vol] 162 mg/dL High 70 - 99 mg/dL [facility] [employer] Phone: Interpretation and review of laboratory results Abnormal [facility] Project Phone: Potassium [Moles/Vol] 3.8 mmol/L 3.7 - 5.3 mmol/L [facility] [employer] Phone: Sodium [Moles/Vol] 131 mmol/L Low 135 - 144 mmol/L [facility] [employer] Phone: Urea nitrogen (BldV) [Mass/Vol] 10 mg/dL 6 - 20 mg/dL [facility] Phone: Urea nitrogen/Creatinine (Bld) [Mass ratio] 25 High [facility]@ Project Phone: [facility] Phone: Glucose, Whole BloodOrdered By: Michelle Wells on 11-21-2020 Glucose [Mass/Vol] 216 mg/dL High 74 - 100 mg/dL [facility] Phone: Interpretation and review of laboratory results Abnormal [facility] Phone: [facility] Phone: Glucose [Mass/Vol] 186 mg/dL High 74 - 100 mg/dL [facility] Phone: Interpretation and review of laboratory results Abnormal [facility] Phone: [facility] Phone: Glucose [Mass/Vol] 195 mg/dL High 74 - 100 mg/dL [facility] Phone: Interpretation and review of laboratory results Abnormal [facility] [employer]: [facility] Phone: Glucose [Mass/Vol] 133 mg/dL High 74 - 100 mg/dL [facility] Phone: Interpretation and review of laboratory results Abnormal [facility] Phone: [facility] Phone: Immature Platelet FractionOr dered By: Michelle Wells on 11-21-2020 Platelet, Fluorescence [employer]@ Project Phone: Platelet, Immature Fraction 7.0 % 1.1 - 10.3 % [facility] Phone: [facility] Phone: Laboratory - Chemistry and C hemistry - challengeOrdered By: Michelle Wells on 11-21-2020 GFR/1.73 sq M.predicted MDRD (S/P/Bld) [Vol rate/Area] [facility] Phone: Comment on above: Average GFR for 40-4 9 years old: 99 mL/min/1.73sq m Chronic Kidney Disease: <60 mL/min/1.73sq m Kidney failure: <15 mL/min/1.73sq m eGFR calculated using average adult body mass. Additional eGFR calculator available at: http://www.[employer]/multiple_crcl_2012.htm Stage 1: Some kidney damage normal GFR Stage 2: Mild kidney damage GFR 60-89 Stage 3: Moderate kidney damage GFR 30-59 Stage 4: Severe kidney damage GFR 15-29 Stage 5: Severe kidney damage GFR <15 ESRD - chronic treatment by dialysis or transplant PLT, Immature Fract.on 11-21 Platelet, Fluoresc. 240 k/uL Normal 138-[address] [facility] Comment on above: Performed By: #### I PF, CMPX, CDP #### [facility] [address] [place] [address] Laboratory Coordinator: Oc Bay MD PLT, Immature Fract. 7.0 % Normal 1.1-10.3 [facility] Comment on above: Performed By: #### I PF, CMPX, CDP #### [facility] [address] [place] [address] Laboratory Coordinator: Oc Bay MD CBC auto differentialOrdered By: Michelle Wells on 11-20-2020 Absolute Eos # 0.18 [facility] Work Phone: Absolute Immature Granulocyte <0.[address] [facility] Work Phone: Absolute Lymph # 2.01 [facility] Work Phone: Absolute Glacier # 0.[address] [facility] Work Phone: Basophils (Bld) [#/Vol] 0.05 10*3/uL [facility] Work Phone: Basophils/100 WBC (Bld) 1 % 0 - 2 % M [facility] Work Phone: Differential Type NOT REPORTED [facility] Work Phone: Eosinophils/100 WBC (Bld) 3 % 1 - 4 % [facility] Phone: Hematocrit (Bld) [Volume fraction] 37.7 % 36.3 - 47.1 % [facility]@ Project Phone: Hemoglobin.gastrointest inal spec 1 Ql (Stl) 13.6 g/dL 11.9 - 15.1 g/dL [facility] Phone: Immature granulocytes/100 WBC (Bld) 0 % 0 [facility]@ Project Phone: Interpretation and review of laboratory results Abnormal [facility]@ Project Phone: Lymphocytes/100 WBC (Bld) 29 % 24 - 43 % [facility] Phone: MCH (RBC) [Entitic mass] 31.1 pg 25.2 - 33.5 pg [facility] Phone: MCHC (RBC) [Mass/Vol] 36.1 g/dL High 28.4 - 34.8 g/dL [facility] Phone: MCV (RBC) [Entitic vol] 86.1 fL 82.6 - 102.9 fL [facility] Phone: Monocytes/100 WBC (Bld) 8 % 3 - 12 % [facility]@ Project Phone: NRBC Automated 0.0 0.0 per 100 WBC [facility] Phone: Platelet distribution width (Bld) [Ratio] 12.2 % 11.8 - 14.4 % [facility] Phone: Platelet Estimate NOT REPORTED [facility]@ Project Phone: Platelet mean volume (Bld) [Entitic vol] 10.4 fL 8.1 - 13.5 fL [facility] Phone: Platelets (Bld) [#/Vol] 324 10*3/uL [facility] Phone: RBC (Bld) [#/Vol] 4.38 10*6/uL 3.95 - 5.1 1 m/uL [facility] Work Phone: RBC (Bld) [#/Vol] NOT REPORTED [facility]@ Project Phone: Segmented neutrophils/100 WBC (Bld) 60 % 36 - 65 % [facility] Work Phone: Segs Absolute 4.25 [facility] [employer] Work Phone: WBC (Bld) [#/Vol] 7.0 10*3/uL [facility] Work Phone: WBC (Bld) [#/Vol] NOT REPORTED [facility] Phone: [facility] Phone: CBC with Diffon 11-20-2020 Abs. Basophil 0.05 k/uL Normal 0.00-0.20 [facility] Comment on above: Performed By: #### C MPX, CDP #### [address] [place] [id number] Laboratory Coordinator: Oc Bay MD #### GLYHGB #### [place] [id number] Laboratory Coordinator: Jonathan Stewart MD Abs.Imm.Granulocyte <0.03 Normal 0.00-0.[address] [facility] Comment on above: Performed By: #### C MPX, CDP #### [address] [place] [id number] Laboratory Coordinator: Oc Bay MD #### GLYHGB #### [place] [id number] Laboratory Coordinator: Jonathan Stewart MD Abs.Neutrophil (Seg) 4.25 k/uL Normal 1.50-8.10 [facility] Comment on above: Performed By: #### C MPX, CDP #### [address] [place] [address] Laboratory Coordinator: Oc Bay MD #### GLYHGB #### [address] [id number] Laboratory Coordinator: Jonathan Stewart MD Basophils/100 WBC (Bld) 1 % Normal 0-2 M [facility] Comment on above: Performed By: #### C MPX, CDP #### [facility] [address] [place] [address] Dr. [place] [id number] Laboratory Coordinator: Oc Bay MD #### GLYHGB #### [address] [id number] Laboratory Coordinator: Jonathan Stewart MD Eosinophils (Bld) [#/Vol] 0.18 10*3/uL Normal 0.00-0.[address] [facility] Comment on above: Performed By: #### C MPX, CDP #### [address] [place] [id number] Laboratory Coordinator: Oc Bay MD #### GLYHGB #### [address] [id number] Laboratory Coordinator: Jonathan Stewart MD Eosinophils/100 WBC (Bld) 3 % Normal 1-[address] [facility] Comment on above: Performed By: #### C MPX, CDP #### [facility] [address] [place] [address] Dr. [place] [id number] Laboratory Coordinator: Oc Bay MD #### GLYHGB #### [address] [id number] Laboratory Coordinator: Jonathan Stewart MD Erythrocyte distribution width (RBC) [Ratio] 12.2 % Normal 11.8-14.[address] [facility] Comment on above: Performed By: #### C MPX, CDP #### [facility] [address] [place] [address] [place] [address] Laboratory Coordinator: Oc Bay MD #### GLYHGB #### [address] [id number] Laboratory Coordinator: Jonathan Stewart MD Hematocrit (Bld) [Volume fraction] 37.7 % Normal 36.3-47.[address] [facility] Comment on above: Performed By: #### C MPX, CDP #### [address] [place] [id number] Laboratory Coordinator: Oc Bay MD #### GLYHGB #### [place] [id number] Laboratory Coordinator: Jonathan Stewart MD Hemoglobin (Bld) [Mass/Vol] 13.6 g/dL Normal 11.9-15.[address] [facility] Comment on above: Performed By: #### C MPX, CDP #### [address] [place] [id number] Laboratory Coordinator: Oc Bay MD #### GLYHGB #### [place] [address] Laboratory Coordinator: Jonathan Stewart MD Immature granulocytes/100 WBC (Bld) 0 % Normal [address] [facility] Comment on above: Performed By: #### C MPX, CDP #### [address] [place] [id number] Laboratory Coordinator: Oc Bay MD #### GLYHGB #### [address] [id number] Laboratory Coordinator: Jonathan Stewart MD Lymphocytes (Bld) [#/Vol] 2.01 10*3/uL Normal 1.10-3.[address] [facility] Comment on above: Performed By: #### C MPX, CDP #### [address] [place] [address] Laboratory Coordinator: Oc Bay MD #### GLYHGB #### [place] [address] [place], [place] [id number] Laboratory Coordinator: Jonathan Stewart MD Lymphocytes/100 WBC (Bld) 29 % Normal 24-[address] [facility] Comment on above: Performed By: #### C MPX, CDP #### [facility] [address] [place] [address] [place] [address] Laboratory Coordinator: Oc Bay MD #### GLYHGB #### [place] [address] [place], [place] 0373108 Laboratory Coordinator: Jonathan Stewart MD MCH (RBC) [Entitic mass] 31.1 pg Normal 25.2-33.[address] [facility] Comment on above: Performed By: #### C MPX, CDP #### [address] [place] [address] Laboratory Coordinator: Oc Bay MD #### GLYHGB #### [address] [id number] Laboratory Coordinator: Jonathan Stewart MD MCHC (RBC) [Mass/Vol] 36.1 g/dL High 28.4-34.8 [facility] Comment on above: Performed By: #### C MPX, CDP #### [address] [place] [address] Laboratory Coordinator: Oc Bay MD #### GLYHGB #### [place] [address] [place], [place] 7869408 Laboratory Coordinator: Jonathan Stewart MD MCV (RBC) [Entitic vol] 86.1 fL Normal 82.6-102.9 M [facility] Comment on above: Performed By: #### C MPX, CDP #### [address] [place] [address] Laboratory Coordinator: Oc Bay MD #### GLYHGB #### [address] [address] Laboratory Coordinator: Jonathan Stewart MD Monocytes (Bld) [#/Vol] 0.53 10*3/uL Normal 0.10-1.[address] [facility] Comment on above: Performed By: #### C MPX, CDP #### [facility] [address] [place], [place] 2996483 Laboratory Coordinator: Oc Bay MD #### GLYHGB #### [address] [id number] Laboratory Coordinator: Jonathan Stewart MD Monocytes/100 WBC (Bld) 8 % Normal 3-12 M [facility] Comment on above: Performed By: #### C MPX, CDP #### [address] [place] [id number] ( Laboratory Coordinator: Oc Bay MD #### GLYHGB #### [address] [address] Laboratory Coordinator: Jonathan Stewart MD Neutrophil (Seg) 60 % Normal 36-65 [facility] Comment on above: Performed By: #### C MPX, CDP #### [address] [place] [id number] Laboratory Coordinator: Oc Bay MD #### GLYHGB #### [address] [address] Laboratory Coordinator: Jonathan Stewart MD NRBC Automated 0.0 per 100 WBC Normal 0.[address] [facility] Comment on above: Performed By: #### C MPX, CDP #### [facility] [address] [place] [address] Laboratory Coordinator: Oc Bay MD #### GLYHGB #### [address] [place] [address] Laboratory Coordinator: Jonathan Stewart MD Platelet mean volume (Bld) [Entitic vol] 10.4 fL Normal 8.1-13.[address] [facility] Comment on above: Performed By: #### C MPX, CDP #### [facility] [address] [place], [place] [id number] Laboratory Coordinator: Oc Bay MD #### GLYHGB #### [place] [address] [place] [address] Laboratory Coordinator: Jonathan Stewart MD Platelets (Bld) [#/Vol] 324 10*3/uL Normal 138-[address] [facility] Comment on above: Performed By: #### C MPX, CDP #### [address] [place] [address] Laboratory Coordinator: Oc Bay MD #### GLYHGB #### [place] [address] [place] [address] Laboratory Coordinator: Jonathan Stewart MD RBC (Bld) [#/Vol] 4.38 10*6/uL Normal 3.95-5.[address] [facility] Comment on above: Performed By: #### C MPX, CDP #### [address] [place] [address] Laboratory Coordinator: Oc Bay MD #### GLYHGB #### [place] [address] [place], [place] 1495708 Laboratory Coordinator: Jonathan Stewart MD WBC (Bld) [#/Vol] 7.0 10*3/uL Normal 3.5-11.[address] [facility] Comment on above: Performed By: #### C MPX, CDP #### [facility] [address] [place] [address] [place] [address] Laboratory Coordinator: Oc Bay MD #### GLYHGB #### [place] [address] [place] [address] Laboratory Coordinator: Jonathan Stewart MD Auto Diff Performed NOT REPORTED Normal [facility] Comment on above: Performed By: #### C MPX, CDP #### [address] [place] [address] Laboratory Coordinator: Oc Bay MD #### GLYHGB #### [address] [address] Laboratory Coordinator: Jonathan Stewart MD Platelet Estimate NOT REPORTED Normal [facility] Comment on above: Performed By: #### C MPX, CDP #### [address] [place] [address] Laboratory Coordinator: Oc Bay MD #### GLYHGB #### [address] [address] Laboratory Coordinator: Jonathan Stewart MD RBC morphology finding Nom (Bld) NOT REPORTED Normal [facility] Comment on above: Performed By: #### C MPX, CDP #### [address] [place] [address] Laboratory Coordinator: Oc Bay MD #### GLYHGB #### [address] [address] Laboratory Coordinator: Jonathan Stewart MD WBC Morphology NOT REPORTED Normal [facility] Comment on above: Performed By: #### C MPX, CDP #### [address] [place], [place] 2743483 Laboratory Coordinator: Oc Bay MD #### GLYHGB #### [address] [address] Laboratory Coordinator: Jonathan Stewart MD Comp Metabolic Pr/rfx MGon 0 11-20-2020 ALT [Catalytic activity/Vol] U/L Low 5-[address] [facility] Comment on above: Performed By: #### C MPX, CDP #### [facility] [address] [place], [place] [id number] Laboratory Coordinator: Oc Bay MD #### GLYHGB #### [facility] [address] [place], [place] 6162108 Laboratory Coordinator: Jonathan Stewart MD AST [Catalytic activity/Vol] U/L Normal <[address] [facility] Comment on above: Performed By: #### C MPX, CDP #### [facility] [address] [place] [address] Laboratory Coordinator: Oc Bay MD #### GLYHGB #### [place] [address] [place], [place] 1685708 Laboratory Coordinator: Jonathan Stewart MD Bilirubin [Mass/Vol] mg/dL Low 0.3-1.2 [facility] Comment on above: Performed By: #### C MPX, CDP #### [address] [place] [address] Laboratory Coordinator: Oc Bay MD #### GLYHGB #### [facility] [address] [place], [place] 8751908 Laboratory Coordinator: Jonathan Stewart MD (cont.) Normal [facility] Comment on above: Result Comment: Aver age GFR for 40-49 years old: 99 mL/min/1.73sq m Chronic Kidney Disease: <60 mL/min/1.73sq m Kidney failure: <15 mL/min/1.73sq m eGFR calculated using average adult body mass. Additional eGFR calculator available at: http://www.[employer].com/multiple_crcl_2012.htm Performed By: #### C MPX, CDP #### [facility] [address] [place] [address] Laboratory Coordinator: Oc Bay MD #### GLYHGB #### [address] [address] Laboratory Coordinator: Jonathan Stewart MD Albumin [Mass/Vol] 2.6 g/dL Low 3.5-5.[address] [facility] Comment on above: Performed By: #### C MPX, CDP #### [facility] [address] [place], [place] [id number] Laboratory Coordinator: Oc Bay MD #### GLYHGB #### [address] [address] Laboratory Coordinator: Jonathan Stewart MD Albumin/Glob Ratio 1.0 Normal 1.0-2.[address] [facility] Comment on above: Performed By: #### C MPX, CDP #### [facility] [address] [place] [address] [place], [place] [id number] Laboratory Coordinator: Oc Bay MD #### GLYHGB #### [address] [address] Laboratory Coordinator: Jonathan Stewart MD Alkaline Phos 90 U/L Normal 35-104 [facility] Comment on above: Performed By: #### C MPX, CDP #### [facility] [address] [place] [address] [place], [place] 2489983 Laboratory Coordinator: Oc Bay MD #### GLYHGB #### [address] [address] Laboratory Coordinator: Jonathan Stewart MD Anion gap [Moles/Vol] 9 mmol/L Normal 9-17 [facility] Comment on above: Performed By: #### C MPX, CDP #### [facility] [address] [place], [place] 6683083 Laboratory Coordinator: Oc Bay MD #### GLYHGB #### [address] [address] Laboratory Coordinator: Jonathan Stewart MD BUN/CRE Ratio 24 High 9-20 [facility] Comment on above: Performed By: #### C MPX, CDP #### [facility] [address] [place], [place] 5092383 Laboratory Coordinator: Oc Bay MD #### GLYHGB #### [address] [address] Laboratory Coordinator: Jonathan Stewart MD Calcium [Mass/Vol] 8.2 mg/dL Low 8.6-10.[address] [facility] Comment on above: Performed By: #### C MPX, CDP #### [facility] [address] [place] [address] Dr[address] [place], [place] [id number] Laboratory Coordinator: Oc Bay MD #### GLYHGB #### [address] [address] Laboratory Coordinator: Jonathan Stewart MD Chloride [Moles/Vol] 97 mmol/L Low 98-107 [facility] Comment on above: Performed By: #### C MPX, CDP #### [facility] [address] [place] [address] Dr. [place], [place] [id number] Laboratory Coordinator: Oc Bay MD #### GLYHGB #### [address] [address] Laboratory Coordinator: Jonathan Stewart MD CO2 [Moles/Vol] 22 mmol/L Normal 20-31 [facility] Comment on above: Performed By: #### C MPX, CDP #### [facility] [address] [place] [address] Dr. [place], [place] [id number] Laboratory Coordinator: Oc Bay MD #### GLYHGB #### [address] [address] Laboratory Coordinator: Jonathan Stewart MD Creatinine [Mass/Vol] 0.45 mg/dL Low 0.50-0.90 [facility] Comment on above: Performed By: #### C MPX, CDP #### [facility] [address] [place], [place] 146[address] Laboratory Coordinator: Oc Bay MD #### GLYHGB #### [address] [id number] Laboratory Coordinator: Jonathan Stewart MD GFR, Amer >60 Normal >60 [facility] Comment on above: Performed By: #### C MPX, CDP #### [facility] [address] [place], [place] 2227183 Laboratory Coordinator: Oc Bay MD #### GLYHGB #### [address] [address] Laboratory Coordinator: Jonathan Stewart MD GFR,non Amer >60 Normal >60 [facility] Comment on above: Performed By: #### C MPX, CDP #### [facility] [address] [place], [place] [id number] Laboratory Coordinator: Oc Bay MD #### GLYHGB #### [address] [address] Laboratory Coordinator: Jonathan Stewart MD Glucose [Mass/Vol] 249 mg/dL High 70-[address] [facility] Comment on above: Performed By: #### C MPX, CDP #### [facility] [address] [place], [place] [id number] Laboratory Coordinator: Oc Bay MD #### GLYHGB #### [address] [address] Laboratory Coordinator: Jonathan Stewart MD Potassium [Moles/Vol] 3.7 mmol/L Normal 3.7-5.3 [facility] Comment on above: Performed By: #### C MPX, CDP #### [address] [place], [place] [id number] Laboratory Coordinator: Oc Bay MD #### GLYHGB #### [address] [id number] Laboratory Coordinator: Jonathan Stewart MD Protein [Mass/Vol] 5.2 g/dL Low 6.4-8.[address] [facility] Comment on above: Performed By: #### C MPX, CDP #### [address] [place], [place] 0526083 Laboratory Coordinator: Oc Bay MD #### GLYHGB #### [address] [id number] Laboratory Coordinator: Jonathan Stewart MD Sodium [Moles/Vol] 128 mmol/L Low 135-[address] [facility] Comment on above: Performed By: #### C YIMIX, CDP #### [address] [place], [place] 6391283 Laboratory Coordinator: Oc Bay MD #### GLYHGB #### [address] [id number] Laboratory Coordinator: Jonathan Stewart MD Staging: Normal [facility] Comment on above: Result Comment: Stag e 1: Some kidney damage normal GFR Stage 2: Mild kidney damage GFR 60-89 Stage 3: Moderate kidney damage GFR 30-59 Stage 4: Severe kidney damage GFR 15-29 Stage 5: Severe kidney damage GFR <15 ESRD - chronic treatment by dialysis or transplant Performed By: #### C MPX, CDP #### [address] [place] [address] Laboratory Coordinator: Oc Bay MD #### GLYHGB #### [place] [address] [place], [place] 0550108 Laboratory Coordinator: Jonathan Stewart MD Urea nitrogen [Mass/Vol] 11 mg/dL Normal 6-[address] [facility] Comment on above: Performed By: #### C MPX, CDP #### [facility] [address] [place] [address] Laboratory Coordinator: Oc Bay MD #### GLYHGB #### [facility] [address] [place], [place] [id number] Laboratory Coordinator: Jonathan Stewart MD Comprehensive Metabolic Pane l w/ Reflex to MGOrdered By: Michelle Wells on 11-20-2020 Albumin [Mass/Vol] 2.6 g/dL Low 3.5 - 5.2 g/dL [facility] Phone: Albumin/Globulin [Mass ratio] 1.0 {ratio} [facility] Phone: ALP (Bld) [Catalytic activity/Vol] 90 U/L 35 - 104 U/L [facility] Phone: ALT [Catalytic activity/Vol] U/L Low 5 - 33 U/L [facility] Phone: Anion gap [Moles/Vol] 9 mmol/L 9 - 17 mmol/L [facility] Phone: AST [Catalytic activity/Vol] U/L <32 U/L [facility] Phone: Bilirubin [Mass/Vol] mg/dL Low 0.3 - 1 .2 mg/dL [facility] Phone: Calcium [Mass/Vol] 8.2 mg/dL Low 8.6 - 10. 4 mg/dL [facility] Phone: Chloride [Moles/Vol] 97 mmol/L Low 98 - 10 7 mmol/L [facility] Phone: CO2 [Moles/Vol] 22 mmol/L 20 - 31 mmol/L [facility] Phone: Creatinine [Mass/Vol] 0.45 mg/dL Low 0.50 - 0.90 mg/dL [facility] Phone: Free PSA/Total PSA [Mass fraction] 5.2 g/dL Low 6.4 - 8.3 g/dL [facility] [employer] Work Phone: GFR >60 >60 mL/min [facility] Phone: GFR Non- >60 >60 mL/min [facility] [employer] Work Phone: Glucose [Mass/Vol] 249 mg/dL High 70 - 99 mg/dL [facility] [employer] Work Phone: Interpretation and review of laboratory results Abnormal [facility] Phone: Potassium [Moles/Vol] 3.7 mmol/L 3.7 - 5.3 mmol/L [facility] Phone: Sodium [Moles/Vol] 128 mmol/L Low 135 - 144 mmol/L [facility] [employer] Phone: Urea nitrogen (BldV) [Mass/Vol] 11 mg/dL 6 - 20 mg/dL [facility] Phone: Urea nitrogen/Creatinine (Bld) [Mass ratio] 24 High [facility] Phone: [facility] [employer] Phone: Glucose, Whole BloodOrdered By: Michelle Wells on 11-20-2020 Glucose [Mass/Vol] 170 mg/dL High 74 - 100 mg/dL [facility] Phone: Interpretation and review of laboratory results Abnormal [facility] Phone: [facility] [employer] Phone: Glucose [Mass/Vol] 215 mg/dL High 74 - 100 mg/dL [facility] Phone: Interpretation and review of laboratory results Abnormal [facility] Phone: [facility] Phone: Glucose [Mass/Vol] 300 mg/dL High 74 - 100 mg/dL [facility] [employer] Phone: Interpretation and review of laboratory results Abnormal [facility] Phone: [facility] Phone: Glucose [Mass/Vol] 221 mg/dL High 74 - 100 mg/dL [facility] [employer] Phone: Interpretation and review of laboratory results Abnormal [facility] Work Phone: [facility] [employer] Phone: Laboratory - Chemistry and C hemistry - challengeOrdered By: Michelle Wells on 11-20-2020 GFR/1.73 sq M.predicted MDRD (S/P/Bld) [Vol rate/Area] [facility] Work Phone: Comment on above: Average GFR for 40-4 9 years old: 99 mL/min/1.73sq m Chronic Kidney Disease: <60 mL/min/1.73sq m Kidney failure: <15 mL/min/1.73sq m eGFR calculated using average adult body mass. Additional eGFR calculator available at: http://www.[employer]/multiple_crcl_2012.htm Stage 1: Some kidney damage normal GFR Stage 2: Mild kidney damage GFR 60-89 Stage 3: Moderate kidney damage GFR 30-59 Stage 4: Severe kidney damage GFR 15-29 Stage 5: Severe kidney damage GFR <15 ESRD - chronic treatment by dialysis or transplant Osmolality, Urineon 11-21-19 Osmolality - Urine 524 mOsm/kg Normal 80-[address] [facility] Comment on above: Performed By: #### C MPX, CDP #### [facility] [address] [place] [address] Laboratory Coordinator: Oc Bay MD #### GLYHGB #### [facility] [address] [place] [address] Laboratory Coordinator: Jonathan Stewart MD Osmolality, urineOrdered By: Michelle Wells on 11-20-2020 Osmolality, Ur [address] [facility] Work Phone: [facility] [employer] Phone: Basic Metabolic PanelOrdered By: Pablo Celis on 11-19-2020 Anion gap [Moles/Vol] 10 mmol/L 9 - 17 mmol/L [facility] Phone: Calcium [Mass/Vol] 8.6 mg/dL 8.6 - 10. 4 mg/dL [facility] [employer] Phone: Chloride [Moles/Vol] 92 mmol/L Low 98 - 10 7 mmol/L [facility] Phone: CO2 [Moles/Vol] 22 mmol/L 20 - 31 mmol/L [facility] [employer] Phone: Creatinine [Mass/Vol] 0.52 mg/dL 0.50 - 0.90 mg/dL [facility] [employer] Phone: GFR >60 >60 mL/min [facility]@ [employer] Phone: GFR Non- >60 >60 mL/min [facility] [employer] Phone: Glucose [Mass/Vol] 393 mg/dL High 70 - 99 mg/dL [facility] [employer] Work Phone: Interpretation and review of laboratory results Abnormal [facility] [employer] Phone: Potassium [Moles/Vol] 5.1 mmol/L 3.7 - 5.3 mmol/L [facility] [employer] Phone: Sodium [Moles/Vol] 124 mmol/L Low 135 - 144 mmol/L [facility] [employer] Phone: Urea nitrogen (BldV) [Mass/Vol] 15 mg/dL 6 - 20 mg/dL [facility] [employer] Phone: Urea nitrogen/Creatinine (Bld) [Mass ratio] 29 High [facility] [employer] Phone: [facility] [employer] Phone: Basic Metabolic Profon 11-19 Potassium [Moles/Vol] 5.1 mmol/L Normal 3.7-5.3 [facility] Comment on above: Performed By: #### C MPX, CDP #### [address] [place] [address] Laboratory Coordinator: Oc Bay MD #### GLYHGB #### [address] 2006308 Laboratory Coordinator: Jonathan Stewart MD (cont.) [facility] Comment on above: Result Comment: Aver age GFR for 40-49 years old: 99 mL/min/1.73sq m Chronic Kidney Disease: <60 mL/min/1.73sq m Kidney failure: <15 mL/min/1.73sq m eGFR calculated using average adult body mass. Additional eGFR calculator available at: http://www.[employer]/multiple_crcl_2011.htm Performed By: #### C MPX, CDP #### [address] [place] [address] Laboratory Coordinator: Oc Bay MD #### GLYHGB #### [address] [id number] Laboratory Coordinator: Jonathan Stewart MD Anion gap [Moles/Vol] 10 mmol/L Normal 9-17 [facility] Comment on above: Performed By: #### C MPX, CDP #### [address] [place] [address] Laboratory Coordinator: Oc Bay MD #### GLYHGB #### [address] [id number] Laboratory Coordinator: Jonathan Stewart MD BUN/CRE Ratio 29 High 9-20 [facility] Comment on above: Performed By: #### C MPX, CDP #### [address] [place] [address] Laboratory Coordinator: Oc Bay MD #### GLYHGB #### [address] [id number] Laboratory Coordinator: Jonathan Stewart MD Calcium [Mass/Vol] 8.6 mg/dL Normal 8.6-10.[address] [facility] Comment on above: Performed By: #### C MPX, CDP #### [facility] [address] [place] [address] Laboratory Coordinator: Oc Bay MD #### GLYHGB #### [address] [id number] Laboratory Coordinator: Jonathan Stewart MD Chloride [Moles/Vol] 92 mmol/L Low 98-107 [facility] Comment on above: Performed By: #### C MPX, CDP #### [address] [place] [id number] Laboratory Coordinator: Oc Bay MD #### GLYHGB #### [address] [id number] Laboratory Coordinator: Jonathan Stewart MD CO2 [Moles/Vol] 22 mmol/L Normal 20-31 [facility] Comment on above: Performed By: #### C MPX, CDP #### [facility] [address] [place] [address] Dr. [place], [place] 0246283 Laboratory Coordinator: Oc Bay MD #### GLYHGB #### [address] [id number] Laboratory Coordinator: Jonathan Stewart MD Creatinine [Mass/Vol] 0.52 mg/dL Normal 0.50-0.90 [facility] Comment on above: Performed By: #### C MPX, CDP #### [facility] [address] [place] [address] Laboratory Coordinator: Oc Bay MD #### GLYHGB #### [facility] [address] [place] [address] Laboratory Coordinator: Jonathan Stewart MD GFR, Amer >60 Normal >60 [facility] Comment on above: Performed By: #### C MPX, CDP #### [facility] [address] [place], [place] 1251483 Laboratory Coordinator: Oc Bay MD #### GLYHGB #### [facility] [address] [place] [address] Laboratory Coordinator: Jonathan Stewart MD GFR,non Amer >60 Normal >60 [facility] Comment on above: Performed By: #### C MPX, CDP #### [facility] [address] [place], [place] 2295483 Laboratory Coordinator: Oc Bay MD #### GLYHGB #### [address] [address] Laboratory Coordinator: Jonathan Stewart MD Glucose [Mass/Vol] 393 mg/dL High 70-[address] [facility] Comment on above: Performed By: #### C MPX, CDP #### [facility] [address] [place], [place] 084[address]83 Laboratory Coordinator: Oc Bay MD #### GLYHGB #### [address] [address] Laboratory Coordinator: Jonathan Stewart MD Sodium [Moles/Vol] 124 mmol/L Low 135-[address] [facility] Comment on above: Performed By: #### C MPX, CDP #### [facility] [address] [place], [place] 4494983 Laboratory Coordinator: Oc Bay MD #### GLYHGB #### [address] [address] Laboratory Coordinator: Jonathan Stewart MD Staging: Normal [facility] Comment on above: Result Comment: Stag e 1: Some kidney damage normal GFR Stage 2: Mild kidney damage GFR 60-89 Stage 3: Moderate kidney damage GFR 30-59 Stage 4: Severe kidney damage GFR 15-29 Stage 5: Severe kidney damage GFR <15 ESRD - chronic treatment by dialysis or transplant Performed By: #### C MPX, CDP #### [facility] [address] [place] [address] Laboratory Coordinator: Oc Bay MD #### GLYHGB #### [facility] [employer] [address] [place], [place] 2024508 Laboratory Coordinator: Jonathan Stewart MD Urea nitrogen [Mass/Vol] 15 mg/dL Normal 6-[address] [facility] Comment on above: Performed By: #### C MPX, CDP #### [facility] [address] [place] [address] Laboratory Coordinator: Oc Bay MD #### GLYHGB #### [facility] [employer] [address] [place], [place] [id number] Laboratory Coordinator: Jonathan Stewart MD CBC auto differentialOrdered By: Jimmy Quevedo on 11-19-2020 [facility] Eos # 0.09 [facility] Work Phone: Absolute Immature Granulocyte 0.[address] [facility] Work Phone: Absolute Lymph # 2.58 [facility] Work Phone: [employer] Glacier # 0.63 [facility] Work Phone: Basophils (Bld) [#/Vol] 0.06 10*3/uL [facility] Work Phone: Basophils/100 WBC (Bld) 1 % 0 - 2 % [facility] [employer] Work Phone: Differential Type NOT REPORTED [facility] Work Phone: Eosinophils/100 WBC (Bld) 1 % 1 - 4 % [employer] Project Phone: Hematocrit (Bld) [Volume fraction] 43.0 % 36.3 - 47.1 % [facility] [employer] Phone: Hemoglobin.gastrointest inal spec 1 Ql (Stl) 15.7 g/dL High 11.9 - 15.1 g/dL [facility] [employer] Phone: Immature granulocytes/100 WBC (Bld) 0 % 0 [facility] [employer] Phone: Interpretation and review of laboratory results Abnormal [facility] [employer] Phone: Lymphocytes/100 WBC (Bld) 22 % Low 24 - 43 % [facility] [employer] Phone: MCH (RBC) [Entitic mass] 31.4 pg 25.2 - 33.5 pg [facility] [employer] Phone: MCHC (RBC) [Mass/Vol] 36.5 g/dL High 28.4 - 34.8 g/dL [facility] [employer] Phone: MCV (RBC) [Entitic vol] 86.0 fL 82.6 - 102.9 fL [facility] [employer] Phone: Monocytes/100 WBC (Bld) 5 % 3 - 12 % [facility]@ [facility] Phone: NRBC Automated 0.0 0.0 per 100 WBC [facility] [employer] Phone: Platelet distribution width (Bld) [Ratio] 12.4 % 11.8 - 14.4 % [facility] [employer] Phone: Platelet Estimate NOT REPORTED [facility] [employer] Phone: Platelet mean volume (Bld) [Entitic vol] 10.4 fL 8.1 - 13.5 fL [facility] [employer] Phone: Platelets (Bld) [#/Vol] 410 10*3/uL [facility] [employer] Phone: RBC (Bld) [#/Vol] 5.00 10*6/uL 3.95 - 5.1 1 m/uL [facility] Work Phone: RBC (Bld) [#/Vol] NOT REPORTED [facility] Work Phone: Segmented neutrophils/100 WBC (Bld) 71 % High 36 - 65 % [employer] Work Phone: Segs Absolute 8.22 High [facility] [employer] Work Phone: WBC (Bld) [#/Vol] 11.6 10*3/uL High [facility] Work Phone: WBC (Bld) [#/Vol] NOT REPORTED [facility] Center[facility]@ Project Phone: [facility] Work Phone: CBC with Diffon 11-19-2020 Abs. Basophil 0.06 k/uL Normal 0.00-0.20 [facility] Comment on above: Performed By: #### C P, CDP, HCG #### [address] [place] [address] Laboratory Coordinator: Oc Bay MD Abs.Imm.Granulocyte 0.05 k/uL Normal 0.00-0.[address] [facility] Comment on above: Performed By: #### C P, CDP, HCG #### [address] [place] [address] Laboratory Coordinator: Oc Bay MD Abs.Neutrophil (Seg) 8.22 k/uL High 1.50-8.10 [facility] Comment on above: Performed By: #### C P, CDP, HCG #### [address] [place] [address] Laboratory Coordinator: Oc Bay MD Basophils/100 WBC (Bld) 1 % Normal 0-2 M [facility] Comment on above: Performed By: #### C P, CDP, HCG #### [address] [place] [address] Laboratory Coordinator: Oc Bay MD Eosinophils (Bld) [#/Vol] 0.09 10*3/uL Normal 0.00-0.[address] [facility] Comment on above: Performed By: #### C P, CDP, HCG #### [facility] [address] [place] [address] Laboratory Coordinator: Oc Bay MD Eosinophils/100 WBC (Bld) 1 % Normal 1-[address] [facility] Comment on above: Performed By: #### C P, CDP, HCG #### [facility] [address] [place] [address] Laboratory Coordinator: Oc Bay MD Erythrocyte distribution width (RBC) [Ratio] 12.4 % Normal 11.8-14.[address] [facility] Comment on above: Performed By: #### C P, CDP, HCG #### [address] [place] [address] Laboratory Coordinator: Oc Bay MD Hematocrit (Bld) [Volume fraction] 43.0 % Normal 36.3-47.[address] [facility] Comment on above: Performed By: #### C P, CDP, HCG #### [address] [place] [address] Laboratory Coordinator: Oc Bay MD Hemoglobin (Bld) [Mass/Vol] 15.7 g/dL High 11.9-15.[address] [facility] Comment on above: Performed By: #### C P, CDP, HCG #### [facility] [address] [place], [facility] Laboratory Coordinator: Oc Bay MD Immature granulocytes/100 WBC (Bld) 0 % Normal [address] [facility] Comment on above: Performed By: #### C P, CDP, HCG #### [facility] [address] [place] [id number] Laboratory Coordinator: Oc Bay MD Lymphocytes (Bld) [#/Vol] 2.58 10*3/uL Normal 1.10-3.[address] [facility] Comment on above: Performed By: #### C P, CDP, HCG #### [facility] [address] [place] [address] Laboratory Coordinator: Oc Bay MD Lymphocytes/100 WBC (Bld) 22 % Low 24-[address] [facility] Comment on above: Performed By: #### C P, CDP, HCG #### [facility] [address] [place] [address] Laboratory Coordinator: Oc Bay MD MCH (RBC) [Entitic mass] 31.4 pg Normal 25.2-33.[address] [facility] Comment on above: Performed By: #### C P, CDP, HCG #### [address] [place], [place] [address] Laboratory Coordinator: Oc Bay MD MCHC (RBC) [Mass/Vol] 36.5 g/dL High 28.4-34.8 [facility] Comment on above: Performed By: #### C P, CDP, HCG #### [address] [place] [address] Laboratory Coordinator: Oc Bay MD MCV (RBC) [Entitic vol] 86.0 fL Normal 82.6-102.9 M [facility] Comment on above: Performed By: #### C P, CDP, HCG #### [address] [place] [address] Laboratory Coordinator: Oc Bay MD Monocytes (Bld) [#/Vol] 0.63 10*3/uL Normal 0.10-1.[address] [facility] Comment on above: Performed By: #### C P, CDP, HCG #### [facility] [address] [place], [place] 9375683 Laboratory Coordinator: Oc Bay MD Monocytes/100 WBC (Bld) 5 % Normal 3-12 [facility] Comment on above: Performed By: #### C P, CDP, HCG #### [facility] [address] [place], [place] 9[address]83 Laboratory Coordinator: Oc Bay MD Neutrophil (Seg) 71 % High 36-65 [facility] Comment on above: Performed By: #### C P, CDP, HCG #### [facility] [address] [place] [address] Laboratory Coordinator: Oc Bay MD NRBC Automated 0.0 per 100 WBC Normal 0.[address] [facility] Comment on above: Performed By: #### C P, CDP, HCG #### [address] [place] [address] Laboratory Coordinator: Oc Bay MD Platelet mean volume (Bld) [Entitic vol] 10.4 fL Normal 8.1-13.[address] [facility] Comment on above: Performed By: #### C P, CDP, HCG #### [address] [place], [place] [address]83 Laboratory Coordinator: Oc Bay MD Platelets (Bld) [#/Vol] 410 10*3/uL Normal 138-[address] [facility] Comment on above: Performed By: #### C P, CDP, HCG #### [address] [place] [address] Laboratory Coordinator: Oc Bay MD RBC (Bld) [#/Vol] 5.00 10*6/uL Normal 3.95-5.[address] [facility] Comment on above: Performed By: #### C P, CDP, HCG #### [facility] [address] [place], [place] [address]783 Laboratory Coordinator: Oc Bay MD WBC (Bld) [#/Vol] 11.6 10*3/uL High 3.5-11.[address] [facility] Comment on above: Performed By: #### C P, CDP, HCG #### [facility] [address] [place] [address] Laboratory Coordinator: Oc Bay MD Auto Diff Performed NOT REPORTED Normal [facility] Comment on above: Performed By: #### C P, CDP, HCG #### [facility] [address] [place] [address] Laboratory Coordinator: Oc Bay MD Platelet Estimate NOT REPORTED Normal [facility] Comment on above: Performed By: #### C P, CDP, HCG #### [facility] [address] [place] [address] Laboratory Coordinator: Oc Bay MD RBC morphology finding Nom (Bld) NOT REPORTED Normal [facility] Comment on above: Performed By: #### C P, CDP, HCG #### [facility] [address] [place] [address] Laboratory Coordinator: Oc Bay MD WBC Morphology NOT REPORTED Normal [facility] Comment on above: Performed By: #### C P, CDP, HCG #### [facility] [address] [place], [place] 9747383 Laboratory Coordinator: Oc Bay MD CT ABDOMEN PELVIS WO CONTRAS Ton 11-19-2020 CT ABDOMEN PELVIS WO CONTRAST EXAMINATION: CT OF THE ABDOMEN AND PELVIS WITHOUT CONTRAST 11/19/2020 7:49 am TECHNIQUE: CT of the abdomen and pelvis was performed without the administration of intravenous contrast. Multiplanar reformatted images are provided for review. Dose modulation, iterative reconstruction, and/or weight based adjustment of the mA/kV was utilized to reduce the radiation dose to as low as reasonably achievable. COMPARISON: 03/17/2020 HISTORY: ORDERING SYSTEM PROVIDED HISTORY: R flank pain TECHNOLOGIST PROVIDED HISTORY: R flank pain Decision Support Exception - unselect if not a suspected or confirmed emergency medical condition->Emergency Medical Condition (MA) Is the patient ?->No FINDINGS: Lower Chest: The visualized heart and lungs show no acute abnormalities. Organs: Cholecystectomy. Liver, spleen, pancreas and adrenal glands show no significant abnormalities. No renal calculi. No hydronephrosis. GI/Bowel: There is limited evaluation due to absence of oral contrast. Stomach grossly normal. Normal caliber small bowel loops showing no focal lesions. The appendix is normal. Evaluation of the colon shows no acute process. Pelvis: Uterus and urinary bladder grossly normal. No suspicious pelvic mass. Phleboliths noted. Peritoneum/Retroperit oneum: No free intraperitoneal fluid. No significant lymphadenopathy. Ureters show no calculi. Bones/Soft Tissues: No acute abnormality of the bones. The superficial soft tissues show no significant abnormalities. IMPRESSION: 1. No acute infective or inflammatory process. 2. No urinary tract calculi. Interpreted by: Juanpablo Membreno MD Signed by: Juanpablo Membreno MD 11/19/20 Final result Normal [facility] CT ABDOMEN PELVIS WO CONTRAS T Additional Contrast? NoneOrdered By: Jimmy Quevedo on 11-19-2020 1. No acute infectiv e or inflammatory process. 2. No urinary tract calculi. [facility] [employer] Work Phone: EXAMINATION: CT OF THE ABDOMEN AND PELVIS WITHOUT CONTRAST 11/19/2020 7:49 am TECHNIQUE: CT of the abdomen and pelvis was performed without the administration of intravenous contrast. Multiplanar reformatted images are provided for review. Dose modulation, iterative reconstruction, and/or weight based adjustment of the mA/kV was utilized to reduce the radiation dose to as low as reasonably achievable. COMPARISON: 03/17/2020 HISTORY: ORDERING SYSTEM PROVIDED HISTORY: R flank pain TECHNOLOGIST PROVIDED HISTORY: R flank pain Decision Support Exception - unselect if not a suspected or confirmed emergency medical condition->Emergency Medical Condition (MA) Is the patient ?->No FINDINGS: Lower Chest: The visualized heart and lungs show no acute abnormalities. Organs: Cholecystectomy. Liver, spleen, pancreas and adrenal glands show no significant abnormalities. No renal calculi. No hydronephrosis. GI/Bowel: There is limited evaluation due to absence of oral contrast. Stomach grossly normal. Normal caliber small bowel loops showing no focal lesions. The appendix is normal. Evaluation of the colon shows no acute process. Pelvis: Uterus and urinary bladder grossly normal. No suspicious pelvic mass. Phleboliths noted. Peritoneum/Retroperit oneum: No free intraperitoneal fluid. No significant lymphadenopathy. Ureters show no calculi. Bones/Soft Tissues: No acute abnormality of the bones. The superficial soft tissues show no significant abnormalities. [employer] Phone: Oscar, M[facility] Incoming Radiant Results From [facility] - 11/19/2020 8:36 AM EDT EXAMINATION: CT OF THE ABDOMEN AND PELVIS WITHOUT CONTRAST 11/19/2020 7:49 am TECHNIQUE: CT of the abdomen and pelvis was performed without the administration of intravenous contrast. Multiplanar reformatted images are provided for review. Dose modulation, iterative reconstruction, and/or weight based adjustment of the mA/kV was utilized to reduce the radiation dose to as low as reasonably achievable. COMPARISON: 03/17/2020 HISTORY: ORDERING SYSTEM PROVIDED HISTORY: R flank pain TECHNOLOGIST PROVIDED HISTORY: R flank pain Decision Support Exception - unselect if not a suspected or confirmed emergency medical condition->Emergency Medical Condition (MA) Is the patient ?->No FINDINGS: Lower Chest: The visualized heart and lungs show no acute abnormalities. Organs: Cholecystectomy. Liver, spleen, pancreas and adrenal glands show no significant abnormalities. No renal calculi. No hydronephrosis. GI/Bowel: There is limited evaluation due to absence of oral contrast. Stomach grossly normal. Normal caliber small bowel loops showing no focal lesions. The appendix is normal. Evaluation of the colon shows no acute process. Pelvis: Uterus and urinary bladder grossly normal. No suspicious pelvic mass. Phleboliths noted. Peritoneum/Retroperit oneum: No free intraperitoneal fluid. No significant lymphadenopathy. Ureters show no calculi. Bones/Soft Tissues: No acute abnormality of the bones. The superficial soft tissues show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 above: Specimens with hCG l evels near the threshold of the test (25 mIU/mL) may give a negative or indeterminate result. In such cases, another test should be performed with a new specimen in 48-72 hours. If early is suspected clinically in this setting, correlation with quantitative serum b-hCG level is suggested. [facility] has confirmed the use of plasma for this test. This has not been cleared or approved by the U.S. Food and Drug Administration. The FDA has determined that such clearance is not necessary. CBC auto differentialon 03-08 Basophils (Bld) [#/Vol] 0.04 10*3/uL [place] Basophils/100 WBC (Bld) 1 % 0 - 2 % [place] Differential Type NOT REPORTED [place] Eosinophils (Bld) [#/Vol] 0.12 10*3/uL [place] Eosinophils/100 WBC (Bld) 2 % 1 - 4 % [place] Erythrocyte distribution width (RBC) [Ratio] 12.9 % 11.8 - 14.4 % [place] Hematocrit (Bld) [Volume fraction] 37.6 % 36.3 - 47.1 % [place] Hemoglobin (Bld) [Mass/Vol] 12.6 g/dL 11.9 - 15.1 g/dL [place] Immature granulocytes (Bld) [#/Vol] 0 % 0 [place] Immature granulocytes (Bld) [#/Vol] 10*3/uL [place] Lymphocytes (Bld) [#/Vol] 2.12 10*3/uL [place] Lymphocytes/100 WBC (Bld) 32 % 24 - 43 % [place] MCH (RBC) [Entitic mass] 30.0 pg 25.2 - 33.5 pg [place] MCHC (RBC) [Mass/Vol] 33.5 g/dL 28.4 - 34.8 g/dL [place] MCV (RBC) [Entitic vol] 89.5 fL 82.6 - 102.9 fL [place] Monocytes (Bld) [#/Vol] 0.52 10*3/uL [place] Monocytes/100 WBC (Bld) 8 % 3 - 12 % [place] Platelet mean volume (Bld) [Entitic vol] 11.1 fL 8.1 - 13.5 fL [place] Platelets (Bld) [#/Vol] NOT REPORTED [place] Platelets (Bld) [#/Vol] 288 10*3/uL [place] RBC (Bld) [#/Vol] 4.20 10*6/uL 3.95 - 5.1 1 m/uL [place] RBC morphology finding Nom (Bld) NOT REPORTED [place] Segmented neutrophils/100 WBC (Bld) 58 % 36 - 65 % [place] Segs Absolute 3.91 [place] WBC (Bld) [#/Vol] 0.0 10*3/uL 0.0 per 10 0 WBC [place] WBC (Bld) [#/Vol] 6.7 10*3/uL [place] WBC Morphology NOT REPORTED [place] Comprehensive Metabolic Pane l w/ Reflex to MGon 03-18-2020 Albumin [Mass/Vol] 3.1 g/dL Low 3.5 - 5.2 g/dL [place] Albumin/Globulin [Mass ratio] 1.2 {ratio} [place] ALP [Catalytic activity/Vol] 64 U/L 35 - 104 U/L [place] ALT [Catalytic activity/Vol] 14 U/L 5 - 33 U/L [place] Anion gap [Moles/Vol] 8 mmol/L Low 9 - 17 mmol/L [place] AST [Catalytic activity/Vol] 12 U/L <32 [place] Bilirubin Ql (U) 0.26 mg/dL Low 0.3 - 1.2 mg/dL [place] Bun/Cre Ratio 19 [place] Calcium [Mass/Vol] 8.4 mg/dL Low 8.6 - 10. 4 mg/dL [place] Chloride [Moles/Vol] 100 mmol/L 98 - 10 7 mmol/L [place] CO2 [Moles/Vol] 23 mmol/L 20 - 31 mmol/L [place] Creatinine [Mass/Vol] 0.58 mg/dL 0.5 - 0.9 mg/dL [place] GFR >60 >60 mL/min [place] GFR Non- >60 >60 mL/min [place] Glucose [Mass/Vol] 173 mg/dL High 70 - 99 mg/dL [place] Interpretation and review of laboratory results Abnormal [place] Potassium [Moles/Vol] 3.7 mmol/L 3.7 - 5.3 mmol/L [place] Protein [Mass/Vol] 5.6 g/dL Low 6.4 - 8.3 g/dL [place] Sodium [Moles/Vol] 131 mmol/L Low 135 - 144 mmol/L [place] Urea nitrogen [Mass/Vol] 11 mg/dL 6 - 20 mg/dL [place] Glucose, Whole Bloodon 03-18 Glucose [Mass/Vol] 258 mg/dL High 74 - 100 mg/dL [place] Interpretation and review of laboratory results Abnormal [place] Glucose [Mass/Vol] 181 mg/dL High 74 - 100 mg/dL [place] Interpretation and review of laboratory results Abnormal [place] Metabolic Panelon 03-18-2020 GFR/1.73 sq M predicted among non-blacks MDRD (S/P/Bld) [Vol rate/Area] [place] Comment on above: Average GFR for 40-4 9 years old: 99 mL/min/1.73sq m Chronic Kidney Disease: <60 mL/min/1.73sq m Kidney failure: <15 mL/min/1.73sq m eGFR calculated using average adult body mass. Additional eGFR calculator available at: http://www.[employer]/multiple_crcl_2011.htm Stage 1: Some kidney damage normal GFR Stage 2: Mild kidney damage GFR 60-89 Stage 3: Moderate kidney damage GFR 30-59 Stage 4: Severe kidney damage GFR 15-29 Stage 5: Severe kidney damage GFR <15 ESRD - chronic treatment by dialysis or transplant CBC auto differentialon 03-08 Basophils (Bld) [#/Vol] 0.06 10*3/uL [place] Basophils/100 WBC (Bld) 1 % 0 - 2 % [place] Differential Type NOT REPORTED [place] Eosinophils (Bld) [#/Vol] 0.08 10*3/uL [place] Eosinophils/100 WBC (Bld) 1 % 1 - 4 % [place] Erythrocyte distribution width (RBC) [Ratio] 12.7 % 11.8 - 14.4 % [place] Hematocrit (Bld) [Volume fraction] 41.0 % 36.3 - 47.1 % [place] Hemoglobin (Bld) [Mass/Vol] 14.2 g/dL 11.9 - 15.1 g/dL [place] Immature granulocytes (Bld) [#/Vol] 0 % 0 [place] Immature granulocytes (Bld) [#/Vol] 0.03 10*3/uL [place] Interpretation and review of laboratory results Abnormal [place] Lymphocytes (Bld) [#/Vol] 2.04 10*3/uL [place] Lymphocytes/100 WBC (Bld) 18 % Low 24 - 43 % [place] MCH (RBC) [Entitic mass] 30.3 pg 25.2 - 33.5 pg [place] MCHC (RBC) [Mass/Vol] 34.6 g/dL 28.4 - 34.8 g/dL [place] MCV (RBC) [Entitic vol] 87.4 fL 82.6 - 102.9 fL [place] Monocytes (Bld) [#/Vol] 1.10 10*3/uL [place] Monocytes/100 WBC (Bld) 10 % 3 - 12 % [place] Platelet mean volume (Bld) [Entitic vol] 11.0 fL 8.1 - 13.5 fL [place] Platelets (Bld) [#/Vol] NOT REPORTED [place] Platelets (Bld) [#/Vol] 339 10*3/uL [place] RBC (Bld) [#/Vol] 4.69 10*6/uL 3.95 - 5.1 1 m/uL [place] RBC morphology finding Nom (Bld) NOT REPORTED [place] Segmented neutrophils/100 WBC (Bld) 70 % High 36 - 65 % [place] Segs Absolute 7.97 [place] WBC (Bld) [#/Vol] 0.0 10*3/uL 0.0 per 10 0 WBC [place] WBC (Bld) [#/Vol] 11.3 10*3/uL [place] WBC Morphology NOT REPORTED [place] ABDOMEN PELVIS WO CONTRAS T Additional Contrast? Noneon 03-17-2020 EXAMINATION: CT OF THE ABDOMEN AND PELVIS WITHOUT CONTRAST 03/17/2020 4:12 am TECHNIQUE: CT of the abdomen and pelvis was performed without the administration of intravenous contrast. Multiplanar reformatted images are provided for review. Dose modulation, iterative reconstruction, and/or weight based adjustment of the mA/kV was utilized to reduce the radiation dose to as low as reasonably achievable. COMPARISON: None. HISTORY: ORDERING SYSTEM PROVIDED HISTORY: left side lower abd pain - left cva - TECHNOLOGIST PROVIDED HISTORY: left side lower abd pain - left cva - Is the patient ?->No Initial evaluation. FINDINGS: Lower Chest: No focal consolidation seen in the visualized lung bases. Organs: The patient is status post cholecystectomy. There is decreased attenuation within the liver adjacent to the falciform ligament, which may represent focal fatty infiltration. Otherwise, the unenhanced liver, spleen, pancreas and adrenal glands demonstrate no acute abnormality. There is no evidence of a contour distorting renal mass. No renal stones or hydronephrosis. There is nonspecific bilateral perinephric stranding. GI/Bowel: No evidence of a bowel obstruction. Stool seen throughout the colon. There is no evidence of acute appendicitis. Pelvis: The urinary bladder and unenhanced uterus demonstrate no acute abnormality. There is a trace amount of fluid within the pelvis. Peritoneum/Retroperit oneum: The abdominal aorta is normal in caliber with scattered atherosclerosis. No bulky retroperitoneal or mesenteric adenopathy. No free fluid or free air within the abdomen or pelvis. Perhaps minimal stranding is seen along the course of the left ureter. Bones/Soft Tissues: No acute osseous abnormality. [place] 1. Minimal stranding is seen along the course of the left ureter. No radiopaque stone is seen. Findings could be related to a recently passed stone or perhaps pyelonephritis. 2. No evidence of urolithiasis or obstructive uropathy. 3. No acute abnormality identified within the unenhanced abdomen or pelvis. 4. Stool is seen throughout the colon, which could represent constipation. 5. Trace fluid in the pelvis, which is presumably physiologic in nature. [place] Oscar, M[facility]pn Incoming Radiant Results From [facility] [employer] - 03/17/2020 4:36 AM EST EXAMINATION: CT OF THE ABDOMEN AND PELVIS WITHOUT CONTRAST 03/17/2020 4:12 am TECHNIQUE: CT of the abdomen and pelvis was performed without the administration of intravenous contrast. Multiplanar reformatted images are provided for review. Dose modulation, iterative reconstruction, and/or weight based adjustment of the mA/kV was utilized to reduce the radiation dose to as low as reasonably achievable. COMPARISON: None. HISTORY: ORDERING SYSTEM PROVIDED HISTORY: left side lower abd pain - left cva - TECHNOLOGIST PROVIDED HISTORY: left side lower abd pain - left cva - Is the patient ?->No Initial evaluation. FINDINGS: Lower Chest: No focal consolidation seen in the visualized lung bases. Organs: The patient is status post cholecystectomy. There is decreased attenuation within the liver adjacent to the falciform ligament, which may represent focal fatty infiltration. Otherwise, the unenhanced liver, spleen, pancreas and adrenal glands demonstrate no acute abnormality. There is no evidence of a contour distorting renal mass. No renal stones or hydronephrosis. There is nonspecific bilateral perinephric stranding. GI/Bowel: No evidence of a bowel obstruction. Stool seen throughout the colon. There is no evidence of acute appendicitis. Pelvis: The urinary bladder and unenhanced uterus demonstrate no acute abnormality. There is a trace amount of fluid within the pelvis. Peritoneum/Retroperit oneum: The abdominal aorta is normal in caliber with scattered atherosclerosis. No bulky retroperitoneal or mesenteric adenopathy. No free fluid or free air within the abdomen or pelvis. Perhaps minimal stranding is seen along the course of the left ureter. Bones/Soft Tissues: No acute osseous abnormality. IMPRESSION: 1. Minimal stranding is seen along the course of the left ureter. No radiopaque stone is seen. Findings could be related to a recently passed stone or perhaps pyelonephritis. 2. No evidence of urolithiasis or obstructive uropathy. 3. No acute abnormality identified within the unenhanced abdomen or pelvis. 4. Stool is seen throughout the colon, which could represent constipation. 5. Trace fluid in the pelvis, which is presumably physiologic in nature. [place] Comprehensive Metabolic Pane michelle 03-17-2020 Albumin [Mass/Vol] 3.7 g/dL 3.5 - 5.2 g/dL [place] Albumin/Globulin [Mass ratio] 1.3 {ratio} [place] ALP [Catalytic activity/Vol] 93 U/L 35 - 104 U/L [place] ALT [Catalytic activity/Vol] 18 U/L 5 - 33 U/L [place] Anion gap [Moles/Vol] 12 mmol/L 9 - 17 mmol/L [place] AST [Catalytic activity/Vol] 13 U/L <32 [place] Bilirubin Ql (U) 0.23 mg/dL Low 0.3 - 1.2 mg/dL [place] Bun/Cre Ratio 24 High [place] Calcium [Mass/Vol] 9.2 mg/dL 8.6 - 10. 4 mg/dL [place] Chloride [Moles/Vol] 90 mmol/L Low 98 - 10 7 mmol/L [place] CO2 [Moles/Vol] 23 mmol/L 20 - 31 mmol/L [place] Creatinine [Mass/Vol] 0.66 mg/dL 0.5 - 0.9 mg/dL [place] GFR >60 >60 mL/min [place] GFR Non- >60 >60 mL/min [place] Glucose [Mass/Vol] 396 mg/dL High 70 - 99 mg/dL [place] Interpretation and review of laboratory results Abnormal [place] Potassium [Moles/Vol] 3.6 mmol/L Low 3.7 - 5.3 mmol/L [place] Protein [Mass/Vol] 6.6 g/dL 6.4 - 8.3 g/dL [place] Sodium [Moles/Vol] 125 mmol/L Low 135 - 144 mmol/L [place] Urea nitrogen [Mass/Vol] 16 mg/dL 6 - 20 mg/dL [place] Glucose, Whole Bloodon 03-17 Glucose [Mass/Vol] 261 mg/dL High 74 - 100 mg/dL [place] Interpretation and review of laboratory results Abnormal [place] Glucose [Mass/Vol] 213 mg/dL High 74 - 100 mg/dL [place] Interpretation and review of laboratory results Abnormal [place] Glucose [Mass/Vol] 237 mg/dL High 74 - 100 mg/dL [place] Interpretation and review of laboratory results Abnormal [place] Glucose [Mass/Vol] 257 mg/dL High 74 - 100 mg/dL [place] Interpretation and review of laboratory results Abnormal [place] Lactic Acid, Plasmaon 2019 Lactate [Moles/Vol] 0.8 mmol/L 0.5 - 2. 2 mmol/L [place] Lactic Acid, Whole Blood NOT REPORTED 0.7 - 2.1 mmol/L [place] Metabolic Panelon 03-17-2020 GFR/1.73 sq M predicted among non-blacks MDRD (S/P/Bld) [Vol rate/Area] [place] Comment on above: Average GFR for 40-4 9 years old: 99 mL/min/1.73sq m Chronic Kidney Disease: <60 mL/min/1.73sq m Kidney failure: <15 mL/min/1.73sq m eGFR calculated using average adult body mass. Additional eGFR calculator available at: http://www.[employer]/multiple_crcl_2012.htm Stage 1: Some kidney damage normal GFR Stage 2: Mild kidney damage GFR 60-89 Stage 3: Moderate kidney damage GFR 30-59 Stage 4: Severe kidney damage GFR 15-29 Stage 5: Severe kidney damage GFR <15 ESRD - chronic treatment by dialysis or transplant Microscopic Urinalysison Amorphous, UA NOT REPORTED None [place] Bacteria, UA 4+ Abnormal None [place] Casts UA NOT REPORTED /LPF [place] Crystals, UA NOT REPORTED None /HPF [place] Epithelial Cells UA 5 TO 10 [place] Interpretation and review of laboratory results Abnormal [place] Mucus, UA NOT REPORTED None [place] Other Observations UA NOT REPORTED NOT REQ. [place] RBC (U) [#/Vol] 20 TO 50 [place] Renal Epithelial, UA NOT REPORTED 0 /HPF [place] Trichomonas, UA NOT REPORTED None [place] WBC, UA GREATER THAN 100 [place] Yeast, UA NOT REPORTED None [place] Urinalysis Reflex to Culture on 03-17-2020 Bilirubin Urine Negative NEGATIVE [place] Color, UA YELLOW YELLOW [place] Glucose, Ur 3+ Abnormal NEGATIVE [place] Interpretation and review of laboratory results Abnormal [place] Ketones Ql (U) TRACE Abnormal NEGATIVE [place] Leukocyte esterase Test strip Ql (U) SMALL Abnormal NEGATIVE [place] Nitrite, Urine Positive Abnormal NEGATIVE [place] pH, UA 6.0 [place] Protein (U) [Mass/Vol] 2+ Abnormal NEGATIVE [place] Specific [place], UA 1.020 [place], [place] Turbidity UA TURBID Abnormal CLEAR [place] Urinalysis Comments NOT REPORTED [place] Urine Hgb 3+ Abnormal NEGATIVE [place] Urobilinogen, Urine Normal Normal [place] CBC Auto Differentialon 10- Basophils (Bld) [#/Vol] 0.04 10*3/uL [place] Basophils/100 WBC (Bld) 1 % 0 - 2 % [place] Differential Type NOT REPORTED [place] Eosinophils (Bld) [#/Vol] 0.05 10*3/uL [place] Eosinophils/100 WBC (Bld) 1 % 1 - 4 % [place] Erythrocyte distribution width (RBC) [Ratio] 12.2 % 11.8 - 14.4 % [place] Hematocrit (Bld) [Volume fraction] 39.1 % 36.3 - 47.1 % [place] Hemoglobin (Bld) [Mass/Vol] 13.5 g/dL 11.9 - 15.1 g/dL [place] Immature granulocytes (Bld) [#/Vol] 0 % 0 [place] Immature granulocytes (Bld) [#/Vol] 0.03 10*3/uL [place] Interpretation and review of laboratory results Abnormal [place] Lymphocytes (Bld) [#/Vol] 1.58 10*3/uL [place] Lymphocytes/100 WBC (Bld) 20 % Low 24 - 43 % [place] MCH (RBC) [Entitic mass] 30.3 pg 25.2 - 33.5 pg [place] MCHC (RBC) [Mass/Vol] 34.5 g/dL 28.4 - 34.8 g/dL [place] MCV (RBC) [Entitic vol] 87.9 fL 82.6 - 102.9 fL [place] Monocytes (Bld) [#/Vol] 0.64 10*3/uL [place] Monocytes/100 WBC (Bld) 8 % 3 - 12 % [place] Platelet mean volume (Bld) [Entitic vol] 10.7 fL 8.1 - 13.5 fL [place] Platelets (Bld) [#/Vol] 292 10*3/uL [place] Platelets (Bld) [#/Vol] NOT REPORTED [place] RBC (Bld) [#/Vol] 4.45 10*6/uL 3.95 - 5.1 1 m/uL [place] RBC morphology finding Nom (Bld) NOT REPORTED [place] Segmented neutrophils/100 WBC (Bld) 70 % High 36 - 65 % [place] Segs Absolute 5.41 [place] WBC (Bld) [#/Vol] 0.0 10*3/uL 0.0 per 10 0 WBC [place] WBC (Bld) [#/Vol] 7.8 10*3/uL [place] WBC Morphology NOT REPORTED [place] Comprehensive Metabolic Pane l w/ Reflex to MGon 01-15-2020 Albumin [Mass/Vol] 3.7 g/dL 3.5 - 5.2 g/dL [place] Albumin/Globulin [Mass ratio] 1.4 {ratio} [place] ALP [Catalytic activity/Vol] 84 U/L 35 - 104 U/L [place] ALT [Catalytic activity/Vol] 12 U/L 5 - 33 U/L [place] Anion gap [Moles/Vol] 11 mmol/L 9 - 17 mmol/L [place] AST [Catalytic activity/Vol] U/L <32 U/L [place] Bilirubin Ql (U) <0.10 Low 0.3 - 1.2 mg/dL [place] Bun/Cre Ratio 21 High [place] Calcium [Mass/Vol] 8.8 mg/dL 8.6 - 10. 4 mg/dL [place] Chloride [Moles/Vol] 93 mmol/L Low 98 - 10 7 mmol/L [place] CO2 [Moles/Vol] 24 mmol/L 20 - 31 mmol/L [place] Creatinine [Mass/Vol] 0.76 mg/dL 0.5 - 0.9 mg/dL [place] GFR >60 >60 mL/min [place] GFR Non- >60 >60 mL/min [place] Glucose [Mass/Vol] 487 mg/dL Critically high 70 - 99 mg/d L [place] Interpretation and review of laboratory results Abnormal [place] Potassium [Moles/Vol] 4.0 mmol/L 3.7 - 5.3 mmol/L [place] Protein [Mass/Vol] 6.4 g/dL 6.4 - 8.3 g/dL [place] Sodium [Moles/Vol] 128 mmol/L Low 135 - 144 mmol/L [place] Urea nitrogen [Mass/Vol] 16 mg/dL 6 - 20 mg/dL [place] Lipaseon 01-15-2020 Lipase [Catalytic activity/Vol] 54 U/L 13 - 60 U/L [place] Metabolic Panelon 01-15-2020 GFR/1.73 sq M predicted among non-blacks MDRD (S/P/Bld) [Vol rate/Area] [place] Comment on above: Stage 1: Some kidney damage normal GFR Stage 2: Mild kidney damage GFR 60-89 Stage 3: Moderate kidney damage GFR 30-59 Stage 4: Severe kidney damage GFR 15-29 Stage 5: Severe kidney damage GFR <15 ESRD - chronic treatment by dialysis or transplant Average GFR for 40-4 9 years old: 99 mL/min/1.73sq m Chronic Kidney Disease: <60 mL/min/1.73sq m Kidney failure: <15 mL/min/1.73sq m eGFR calculated using average adult body mass. Additional eGFR calculator available at: http://www.[employer]/multiple_crcl_2012.htm , Urineon 0 Beta HCG ( test) Ql (U) Negative NEGATIVE [place] Comment on above: Specimens with hCG l evels near the threshold of the test (25 mIU/mL) may give a negative or indeterminate result. In such cases, another test should be performed with a new specimen in 48-72 hours. If early is suspected clinically in this setting, correlation with quantitative serum b-hCG level is suggested. [employer] has confirmed the use of plasma for this test. This has not been cleared or approved by the U.S. Food and Drug Administration. The FDA has determined that such clearance is not necessary. Urinalysis with microscopico n 01-15-2020 Amorphous, UA NOT REPORTED None [place] Bacteria, UA NOT REPORTED None [place] Bilirubin Urine Negative NEGATIVE [place] Casts UA NOT REPORTED /LPF [place] Color, UA YELLOW YELLOW [place] Crystals, UA NOT REPORTED None /HPF [place] Epithelial Cells UA 5 TO 10 [place] Glucose, Ur 3+ Abnormal NEGATIVE [place] Interpretation and review of laboratory results Abnormal [place] Ketones Ql (U) 1+ Abnormal NEGATIVE [place] Leukocyte esterase Test strip Ql (U) Negative NEGATIVE [place] Mucus, UA NOT REPORTED None [place] Nitrite, Urine Negative NEGATIVE [place] Other Observations UA NOT REPORTED NOT REQ. [place] pH, UA 6.0 [place] Protein (U) [Mass/Vol] 1+ Abnormal NEGATIVE [place] RBC (U) [#/Vol] 0 TO 2 [place] Renal Epithelial, UA NOT REPORTED 0 /HPF [place] Specific [place], UA 1.010 [place], [place] Trichomonas, UA NOT REPORTED None [place] Turbidity UA CLEAR CLEAR [place] Urinalysis Comments NOT REPORTED [place] Urine Hgb 1+ Abnormal NEGATIVE [place] Urobilinogen, Urine Normal Normal [place] WBC, UA 0 TO 2 [place] Yeast, UA NOT REPORTED None [place] XR CHEST PORTABLEon 01-15-20 EXAMINATION: ONE XRA Y VIEW OF THE CHEST 01/15/2020 7:03 pm COMPARISON: None. HISTORY: ORDERING SYSTEM PROVIDED HISTORY: elevated WBC TECHNOLOGIST PROVIDED HISTORY: elevated WBC FINDINGS: There is no acute consolidation or effusion. There is no pneumothorax. The mediastinal structures are unremarkable. The upper abdomen is unremarkable. The extrathoracic soft tissues are unremarkable. There is no acute osseous abnormality. [place] No acute cardiopulmonary process. [place] Oscar, Mhpn Incoming Radiant Results From [facility] - 01/15/2020 7:17 PM EDT EXAMINATION: ONE XRAY VIEW OF THE CHEST 01/15/2020 7:03 pm COMPARISON: None. HISTORY: ORDERING SYSTEM PROVIDED HISTORY: elevated WBC TECHNOLOGIST PROVIDED HISTORY: elevated WBC FINDINGS: There is no acute consolidation or effusion. There is no pneumothorax. The mediastinal structures are unremarkable. The upper abdomen is unremarkable. The extrathoracic soft tissues are unremarkable. There is no acute osseous abnormality. IMPRESSION: No acute cardiopulmonary process. [place] C-Peptideon 10-16-2019 C-Peptide 2.8 ng/mL 1.1 - 4.4 ng/mL [place] Comprehensive Metabolic Pane michelle 10-16-2019 Albumin [Mass/Vol] 4 g/dL 3.5 - 5.2 g/dL [place] Albumin/Globulin [Mass ratio] 1.3 {ratio} [place] ALP [Catalytic activity/Vol] 93 U/L 35 - 104 U/L [place] ALT [Catalytic activity/Vol] 21 U/L 5 - 33 U/L [place] Anion gap [Moles/Vol] 13 mmol/L 9 - 17 mmol/L [place] AST [Catalytic activity/Vol] 20 U/L <32 [place] Bilirubin Ql (U) 0.39 mg/dL 0.3 - 1.2 mg/dL [place] Bun/Cre Ratio 18 [place] Calcium [Mass/Vol] 9.1 mg/dL 8.6 - 10. 4 mg/dL [place] Chloride [Moles/Vol] 97 mmol/L Low 98 - 10 7 mmol/L [place] CO2 [Moles/Vol] 24 mmol/L 20 - 31 mmol/L [place] Creatinine [Mass/Vol] 0.68 mg/dL 0.5 - 0.9 mg/dL [place] GFR >60 >60 mL/min [place] GFR Non- >60 >60 mL/min [place] Glucose [Mass/Vol] 362 mg/dL High 70 - 99 mg/dL [place] Interpretation and review of laboratory results Abnormal [place] Potassium [Moles/Vol] 4.3 mmol/L 3.7 - 5.3 mmol/L [place] Protein [Mass/Vol] 7.0 g/dL 6.4 - 8.3 g/dL [place] Sodium [Moles/Vol] 134 mmol/L Low 135 - 144 mmol/L [place] Urea nitrogen [Mass/Vol] 12 mg/dL 6 - 20 mg/dL [place] LDL Cholesterol, Directon Cholesterol in LDL [Mass/Vol] 134 mg/dL High <100 [place] Interpretation and review of laboratory results Abnormal [place] Lipid Panelon 10-16-2019 Cholesterol [Mass/Vol] 265 mg/dL High <200 [place] Comment on above: Cholesterol Guidelines: <200 Desirable 200-240 Borderline >240 Undesirable Cholesterol in HDL [Mass/Vol] 33 mg/dL Low >40 [place] Comment on above: HDL Guidelines: <40 Undesirable 40-59 Borderline >59 Desirable Cholesterol in LDL [Mass/Vol] 0 - 130 mg/dL [place] Comment on above: Calculation not renata d for Triglyceride value greater than 400 mg/dL. Direct LDL reflexed LDL Guidelines: <100 Desirable 100-129 Near to/above Desirable 130-159 Borderline >159 Undesirable Direct (measured) LDL and calculated LDL are not interchangeable tests. Cholesterol in VLDL [Mass/Vol] NOT REPORTED 1 - 30 mg/dL [place] Cholesterol.total/Adelaida sterol in HDL [Mass ratio] 8 {ratio} High <5 [place] Interpretation and review of laboratory results Abnormal [place] Triglyceride [Mass/Vol] 531 mg/dL High <150 [place] Comment on above: Triglyceride Guidelines: <150 Desirable 150-199 Borderline 200-499 High >499 Very high Based on AHA Guidelines for fasting triglyceride, January 2012. Metabolic Panelon 10-16-2019 GFR/1.73 sq M predicted among non-blacks MDRD (S/P/Bld) [Vol rate/Area] [place] Comment on above: Stage 1: Some kidney damage normal GFR Stage 2: Mild kidney damage GFR 60-89 Stage 3: Moderate kidney damage GFR 30-59 Stage 4: Severe kidney damage GFR 15-29 Stage 5: Severe kidney damage GFR <15 ESRD - chronic treatment by dialysis or transplant Average GFR for 40-4 9 years old: 99 mL/min/1.73sq m Chronic Kidney Disease: <60 mL/min/1.73sq m Kidney failure: <15 mL/min/1.73sq m eGFR calculated using average adult body mass. Additional eGFR calculator available at: http://www.[employer].MedPro/multiple_crcl_2012.htm Microalbumin, Uron 0 Albumin/Creatinine DL <= 20 mg/L (24H U) [Mass ratio] 3820 mg/L High <21 [place] Albumin/Creatinine DL <= 20 mg/L (U) [Ratio] 2564 High <25 mcg/mg creat [place] Creatinine [Mass/Vol] 149.0 mg/dL 28 - 2 17 mg/dL [place] Interpretation and review of laboratory results Abnormal [place] TSH without Reflexon 020 TSH Qn 1.82 m[IU]/L [place] Vitamin B12on 10-16-2019 Cobalamin (Vitamin B12) [Mass/Vol] 781 pg/mL 232 - 1245 pg/mL [place] Vitamin D 25 Hydroxyon 10-15 Interpretation and review of laboratory results Abnormal [place] Vit D, 25-Hydroxy 16.7 ng/mL Low 30 - 100 ng/mL [place] Comment on above: Reference Range: Vitamin D status Range Deficiency <20 ng/mL Mild Deficiency 20-30 ng/mL Sufficiency 30-100 ng/mL Toxicity >100 ng/mL Hemoglobin A1Con 03-03-2019 HbA1c (Bld) [Mass fraction] 9.8 % High 4.0-6.0 [facility] Comment on above: Performed By: #### G LYHGB #### [facility] [employer] [facility] [place], [place] [id number] Laboratory Coordinator: Jonathan Stewart MD HbA1c (Bld) [Mass fraction] 235 mg/dL Normal [facility] Comment on above: Result Comment: The ADA and AACC recommend providing the estimated average glucose result to permit better patient understanding of their HBA1c result. Performed By: #### G LYHGB #### [facility] [employer] [facility] [place], [place] [id number] Laboratory Coordinator: Jonathan Stewart MD Glucose [Mass/Vol] 235 mg/dL [place] Comment on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 Work Phone: Start: 11-20-2020 GLUCOSE, WHOLE BLOOD Dipakkumar P Wells M D Work Phone: Start: 11-20-2020 GLUCOSE, WHOLE BLOOD Dipakkumar P Wells M D Work Phone: Start: 11-20-2020 GLUCOSE, WHOLE BLOOD Dipakkumar P Wells M D Work Phone: Start: 11-20-2020 Blood count complete auto&auto difrntl wbc Michelle Wells MD Work Phone: Start: 11-19-2020 GLUCOSE, WHOLE BLOOD Michelle Abdi Work Phone: Start: 11-19-2020 Assay of osmolality urine Michelle florez MD Work Phone: Start: 11-19-2020 GLUCOSE, WHOLE BLOOD Michelle Abdi Work Phone: Start: 11-19-2020 Assay of osmolality blood Pablo ross MD Work Phone: Start: 11-19-2020 End: 11-19-2020 Basic metabolic panel calcium total Pablo Celis MD Work Phone: Start: 11-19-2020 Radiologic exam chest single view Pablo Celis MD Work Phone: Start: 11-19-2020 GLUCOSE, WHOLE BLOOD Pablo Celis MD Work Phone: Start: 11-19-2020 GLUCOSE, WHOLE BLOOD Pablo Celis MD Work Phone: Start: 11-19-2020 Ct abdomen & pelvis w/o contrast material Jimmy Quevedo MD Work Phone: Start: 11-19-2020 Assay of lipase Jimmy Quevedo MD Work Phone: Start: 11-19-2020 Comprehensive metabolic panel Jimmy cuevas MD Work Phone: Start: 11-19-2020 Urinalysis microscopic only Jimmy weaver MD Work Phone: Start: 11-19-2020 Urnls dip stick/tablet rgnt auto w/o microscopy Jimmy Quevedo MD Work Phone: Start: 05-09-2020 Radex spine lumbosacral 2/3 views Pablo Celis Work Phone: Start: 05-09-2020 Radex spine thoracic 2 views Pablo Cri smaru Work Phone: Start: 05-09-2020 Ct cervical spine w/o contrast material Pablo Maryjanemaru Work Phone: Start: 05-09-2020 Gonadotropin chorionic qualitative Pablo Maryjanemaru Work Phone: Start: 03-18-2020 GLUCOSE, WHOLE BLOOD Christopher D Sears Work Phone: Start: 03-18-2020 GLUCOSE, WHOLE BLOOD Christopher D Sears Work Phone: Start: 03-18-2020 Blood count complete auto&auto difrntl wbc Aundrea Delacruzers Work Phone: Start: 03-17-2020 GLUCOSE, WHOLE BLOOD Christopher D Sears Work Phone: Start: 03-17-2020 GLUCOSE, WHOLE BLOOD Christopher D Sears Work Phone: Start: 03-17-2020 End: 03-17-2020 GLUCOSE, WHOLE BLOOD Christopher D Sears Work Phone: Start: 03-17-2020 End: 03-17-2020 CULTURE, BLOOD 1 Pablo Fulleru Work Phone: Start: 03-17-2020 Ct abdomen & pelvis w/o contrast material Pablo Maryjanemaru Work Phone: Start: 03-17-2020 Assay of lactate Pablo Maryjanemaru Work Phone: Start: 03-17-2020 Blood count complete auto&auto difrntl wbc Pablo Maryjanemaru Work Phone: Start: 03-17-2020 Comprehensive metabolic panel Pablo Cr ismaru Work Phone: Start: 03-17-2020 Culture bacterial quanttative colony count urine Pablo Maryjanemaru Work Phone: Start: 03-17-2020 Urinalysis microscopic only Pablo Maryjane alexys Work Phone: Start: 03-17-2020 Urnls dip stick/tablet rgnt auto w/o microscopy Pabloroyer Celsi Work Phone: Start: 01-15-2020 Assay of lipase Prosper Hogan Work Phone: Start: 01-15-2020 Blood count complete auto&auto difrntl wbc Prosper Hogan Work Phone: Start: 01-15-2020 Radiologic exam chest single view Prosper Hogan Work Phone: Start: 01-15-2020 Urine test visual color cmprsn meths Franklin Javier Work Phone: Start: 01-15-2020 Urnls dip stick/tablet reagent auto microscopy Franklin Javier Work Phone: Start: 10-16-2019 25 hydroxy includes fractions if performed Reynaldo Vu Work Phone: Start: 10-16-2019 Assay of c-peptide Reynaldo Vu Work Phone: Start: 10-16-2019 Assay of thyroid stimulating hormone tsh Reynaldo Vu Work Phone: Start: 10-16-2019 Comprehensive metabolic panel Reynaldo Vu Work Phone: Start: 10-16-2019 Cyanocobalamin vitamin b-12 Reynaldo brian Work Phone: Start: 10-16-2019 Lipid panel Reynaldo Vu Work Phone: Start: 10-16-2019 Lipoprotein direct measurement ldl cholesterol Reynaldo Vu Work Phone: Start: 10-16-2019 Urine albumin quantitative Reynaldo Garica Work Phone: Start: 03-03-2019 Glucose blood reagent strip DIEGO IN [facility] Start: 03-03-2019 DISCHARGE PATIENT DIEGO INDURTI Start: 03-03-2019 Glucose blood reagent strip Diego In durti Work Phone: Start: 03-03-2019 Gluc bld gluc mntr dev cleared fda spec home use DIEGO INDURTI Start: 03-03-2019 Glucose blood reagent strip DIEGO IN [facility] Start: 03-03-2019 Hemoglobin glycosylated a1c DIEGO IN [facility] Start: 03-03-2019 Glucose blood reagent strip [facility] Work Phone: Start: 03-03-2019 Hemoglobin glycosylated a1c Ruth craft Work Phone: Start: 03-03-2019 Gluc bld gluc mntr dev cleared fda spec home use DIEGO INDURTI Start: 03-03-2019 Gluc bld gluc mntr dev cleared fda spec home use [facility]IEGO INDUR[facility] Start: 03-02-2019 [facility] Start: 03-02-2019 Gluc bld gluc mntr dev cleared fda spec home use DIEGO INDURTI Start: 03-02-2019 Glucose blood reagent strip Diego In [facility] Work Phone: Start: 03-02-2019 Glucose blood reagent strip Diego In [facility] Work Phone: Start: 03-02-2019 Gluc bld gluc mntr dev cleared fda spec home use DIEGO INDURTI Start: 03-02-2019 Glucose blood reagent strip DIEGO IN [facility] Start: 03-02-2019 Glucose blood reagent strip Diego In [facility] Work Phone: Start: 03-01-2019 PATIENT MONITORING CLOSE Q 15 MINUTES DIEGO INDURTI Start: 03-01-2019 Glucose blood reagent strip DIEGO IN [facility] Start: 03-01-2019 Glucose blood reagent strip Diego In [facility] Work Phone: Start: 03-01-2019 DIET CARB CONTROL DIEGO INDURTI Start: 03-01-2019 IP CONSULT TO INTERNAL MEDICINE [facility]IEGO [facility] Start: 03-01-2019 Glucose blood reagent strip [facility]IEGO IN [facility] Start: 03-01-2019 FULL CODE DIEGO IND[facility] Start: 03-01-2019 TOBACCO CESSATION EDUCATION [facility] IN [facility] Start: 03-01-2019 VITAL SIGNS DIEGO INDURTI Start: 03-01-2019 Glucose blood reagent strip Diego In [facility] Work Phone: Start: 03-01-2019 IP CONSULT TO HISTORY AND PHYSICAL DIEGO [facility] Start: 03-01-2019 PATIENT STATUS (DIRECT) DIEGO AVILA I Start: 03-01-2019 GLUCOSE, WHOLE BLOOD Jimmy BrightTALKSae Work Phone: Start: 03-01-2019 Gluc bld gluc mntr dev cleared fda spec home use [facility] Work Phone: Start: 03-01-2019 GLUCOSE, WHOLE BLOOD [facility] Work Phone: Start: 02-28-2019 Drug screen class list a [facility] Work Phone: Start: 02-28-2019 Assay of acetaminophen [facility] Work Phone: Start: 02-28-2019 Assay of ethanol [facility] Work Phone: Start: 02-28-2019 Assay of salicylate [facility] Work Phone: Start: 02-28-2019 Blood count complete auto&auto difrntl wbc [facility] Work Phone: Start: 02-28-2019 Comprehensive metabolic panel [employer] Work Phone: Start: 02-28-2019 Gonadotropin chorionic qualitative [facility] Work Phone: Start: 02-28-2019 Ecg routine ecg w/least 12 lds i&r only [facility] Work Phone: Start: 02-28-2019 EKG REPORT Hpf Scanning Plan of Treatment Date Care Activity Detail Author Start: 2043 Pneumococcal 0-64 ye ars Vaccine (2 of 2 - PPSV23) Pneumococcal 0-64 years Vaccine (2 of 2 - PPSV23) [facility] Start: 08-07-2024 Screening for malign ant neoplasm of cervix [facility] Start: 07-13-2022 Diabetic foot examination Diabetic f oot exam [facility] Start: 06-29-2022 Depression Monitoring Depression Mon itoring [facility] Start: 06-29-[address] [facility] Start: 06-29-2022 Potassium [Moles/vol ume] in Serum or Plasma Potassium [facility] Start: 06-29-2022 Potassium monitoring Potassium monit [facility] Start: 06-20-[address] [facility] Start: 06-20-2022 Lipid panel Lipid screen [facility] Start: 06-20-2022 Potassium monitoring Potassium monit [facility] Start: 04-19-2022 End: 04-19-2022 [facility] Start: 01-21-2022 Pneumococcal 0-64 ye ars Vaccine (2 - PCV) Pneumococcal 0-64 years Vaccine (2 - PCV) [facility] Start: 11-22-2021 Creatinine measurement Creatinine mo [facility] Work Phone: Start: 11-22-2021 Potassium monitoring Potassium monit [facility] Work Phone: Start: 09-29-2021 Hemoglobin A1c measurement A1C test (Diabetic or Prediabetic) [facility] Start: 08-14-2021 End: 08-14-2021 Patient encounter procedure 08/14/2021 Office Visit Primary Care Rico Cortez MD [address] [place] [address] [address] [place], [place] [id number] [facility] Start: 07-13-2021 End: 07-13-2021 Patient encounter procedure 07/13/2021 Office Visit Primary Care Rico Cortez MD [address] [place] [address] [address] [place] [address] [facility] Start: 06-29-2021 End: 06-29-2021 Patient encounter procedure 06/29/2021 Office Visit Primary Care Rico Cortez MD [address] [place] [address] [facility] Start: 06-21-2021 COVID-19 Vaccine (3 - Booster for Pfizer series) COVID-19 Vaccine (3 - Booster for Pfizer series) [facility] Start: 03-18-2021 [facility] [place] [place] Start: 03-18-2021 Potassium monitoring Potassium monit [place], [place] Start: 02-20-2021 Hemoglobin A1c measurement A1C test (Diabetic or Prediabetic) [facility] Start: 01-14-2021 Creatinine measurement Creatinine mo [place], [place] Start: 01-14-2021 Potassium monitoring Potassium monit [place], [place] Start: 12-07-2020 Influenza vaccination Flu vaccine (# 1) [facility] Work Phone: Start: 10-15-2020 Creatinine measurement Creatinine mo [place] Start: 10-15-2020 Diabetic microalbumi susi test Diabetic microalbuminuria test [place], [place] Start: 10-15-2020 Lipid panel Lipid screen [place], [place] Start: 10-15-2020 Potassium monitoring Potassium monit [place], [place] Start: 10-15-2020 Urine screening for protein Diabetic microalbuminuria test [facility] Start: 03-03-2020 HbA1c (Bld) [Mass fraction] A1C test (Diabetic or Prediabetic) [place], [place] Start: 03-03-2020 Hemoglobin A1c measurement A1C test (Diabetic or Prediabetic) [facility] Phone: Start: 02-29-2020 Creatinine measurement Creatinine mo [place], [place] Start: 02-29-2020 Creatinine monitoring Creatinine mon itoring [place], [place] Start: 02-29-2020 Potassium monitoring Potassium monit [place], [place] Start: 12-08-2019 Influenza vaccination Flu vaccine (# 1) [place], [place] Start: 06-03-2019 HbA1c (Bld) [Mass fraction] A1C test (Diabetic or Prediabetic) [place] Start: 12-07-2018 Influenza vaccination Flu vaccine (# 1) [place] Start: 03-16-2016 Diabetic retinal exam Diabetic retin al exam [facility] Start: 2008 Screening for malign ant neoplasm of cervix [facility] Start: 1999 Screening for malign ant neoplasm of cervix [facility] Start: 1997 DTaP/Tdap/Td vaccine ( - Tdap) DTaP/Tdap/Td vaccine ( - Tdap) [facility] Start: 1997 Hepatitis B vaccine (1 of 3 - Risk 3-dose series) Hepatitis B vaccine (1 of 3 - Risk 3-dose series) [facility] Start: 1996 Diabetic retinal exam Diabetic retin al exam [facility] Start: 1996 Hepatitis C screening Hepatitis C [facility] Start: 1993 HIV screening HIV screen [facility] Start: 1990 COVID-19 Vaccine (1) COVID-19 Vaccin e (1) [facility]: Start: 1990 [facility] Start: 1988 Diabetic foot examination Diabetic f oot exam [facility] Start: 1988 Diabetic retinal exam Diabetic retin al exam [place] Start: 1984 Pneumococcal 0-64 ye ars Vaccine (1 of 1 - PPSV23) Pneumococcal 0-64 years Vaccine (1 of 1 - PPSV23) [place] Start: 1984 Pneumococcal 0-64 ye ars Vaccine (1 of 2 - PPSV23) Pneumococcal 0-64 years Vaccine (1 of 2 - PPSV23) [facility]: Start: 1978 Hepatitis C screening Hepatitis C [facility] End: 08-07-2021 C.trachomatis N.gonorrhoeae DNA, Thin Prep [facility]: Comment on above: 1 Occurrences starti ng 08/07/2021 until 08/07/2021 CBC auto differential [place] Comment on above: Daily until disconti nued starting 03/18/2020, 1 completed Daily until disconti nued starting 11/20/2020, 3 completed Culture, Blood 1 [place], [place] Culture, Urine Culture, Urine Microbiology Routine 03/17/2020 2:40 AM EST [place] End: 08-07-2021 Cytopathology procedure, preparation of smear, genital source [facility] S[facility]AR Lab Routine Encounter for gynecological examination 1 Occurrences starting 08/07/2021 until 08/07/2021 [facility] Work Phone: Comment on above: 1 Occurrences starti ng 08/07/2021 until 08/07/2021 EKG 12 Lead EKG 12 Lead ECG STAT 02/28/2019 10:57 PM EST [facility] [place] End: 11-20-2020 Hemoglobin A1c/Hemoglobin.total in Blood Hemoglobin A1c Lab Routine One Time for 1 Occurrences starting 11/20/2020 until 11/20/2020 [facility] Work Phone: Comment on above: One Time for 1 Occur rences starting 11/20/2020 until 11/20/2020 Hemoglobin A1c/Hemoglobin.total in Blood Hemoglobin A1c Lab Routine 11/20/2020 6:05 AM EDT [facility] Work Phone: End: 06-29-2021 Hemoglobin A1c/Hemoglobin.total in Blood [facility] Work Phone: Comment on above: 1 Occurrences starti ng 06/29/2021 until 06/29/2021 End: 08-07-2021 HERPES PROFILE [facility] Work Phone: Comment on above: 1 Occurrences starti ng 08/07/2021 until 08/07/2021 End: 06-29-2021 LDL Cholesterol, Direct [facility] Work Phone: Comment on above: Once for 1 Occurrenc es starting 06/29/2021 until 06/29/2021 Oxygen therapy [[facility] [place] [facility]] [facility] Comment on above: Daily until disconti nued starting 03/17/2020 Daily until disconti nued starting 11/19/2020 Patient referral [facility] Work Phone: POCT Glucose [facility] [place] Griffith Comment on above: As Needed until disc ontinued starting 03/17/2020 4X Daily (AC & HS) u ntil discontinued starting 03/17/2020 4X Daily (AC & HS) u ntil discontinued starting 11/19/2020 As Needed until disc ontinued starting 11/19/2020 End: 08-07-2021 RPR Reflex to Titer and TPPA RPR Reflex to Titer and TPPA Lab Routine Possible exposure to STD 1 Occurrences starting 08/07/2021 until 08/07/2021 [facility] Work Phone: Comment on above: 1 Occurrences starti ng 08/07/2021 until 08/07/2021 XR LUMBAR SPINE (2-3 VIEWS) XR LUMBAR SPINE (2-3 VIEWS) Imaging STAT 05/09/2020 6:12 PM [facility] [place] XR THORACIC SPINE (2 VIEWS) XR THORACIC SPINE (2 VIEWS) Imaging STAT 05/09/2020 6:12 PM EST [facility], [place] Immunizations Immunization Date Immunization Notes Care Provider Fa tamra 01-21-2021 COVID-19 mRNA, Comirnaty (Pfizer) DO Anh Pina Work Phone: [facility] 12-31-2020 COVID-19 mRNA, Comirnaty (Pfizer) DO Anh Pina Work Phone: [facility] 03-02-2019 influenza, injectabl e, quadrivalent, preservative free Reynaldo [facility] Payers Date Payer Category Payer Unknown [id number] 2022 Self-pay [id number] 2020 Unknown [employer]ANCE 2020-Present [phone] [place] [address] [address] [place] [address] [id number] 2014 Unknown [facility] xxxxxxxxxxxx 2014-Present [phone] [address] [place] [address] xxxxxxxxxxxx [id number] 2014 Unknown [facility] [id number] 2014-Present [phone] [address] [place] [address] [id number] 1978 Unknown [id number] [id number] 1978 Unknown [id number] 2.16.840.1.497270.3.579.2.593 1978 Unknown [id number] 2.16.840.1.004279.3.579.2.593 1978 Unknown [id number] 2.16.840.1.467310.3.579.2.176 1978 Unknown [id number] 2.16.840.1.079656.3.579.2.173 1978 Unknown [id number] 2.16.840.1.124965.3.579.2.173 1978 Unknown [id number] 2.16.840.1.000287.3.579.2.173 1978 Unknown [id number] 2.16.840.1.415457.3.579.2.173 1978 Unknown [id number] 2.16.840.1.770741.3.579.2.173 1978 Unknown [id number] 2.16.840.1.431834.3.579.2.173 1978 Unknown [id number] 2.16.840.1.701553.3.579.2.173 1978 Unknown [id number] 2.16.840.1.831859.3.579.2.128 6 1978 Unknown [id number] 2.16.840.1.841159.3.579.2.128 6 1978 Unknown [id number] 2.16.840.1.100282.3.579.2.128 6 1959 Unknown [id number] Unknown [id number] 2.16.840.1.116853.3.579.2.531 Unknown [id number] 2.16.840.1.099946.3.579.2.531 Unknown [id number] 2.16.840.1.205173.3.579.2.531 Unknown [id number] 2.16.840.1.508017.3.579.2.531 Social History Date Type Detail Facility Start: 03-01-2019 End: 03-03-2019 Tobacco smoking status NHIS Current every day smoker [facility] History of tobacco use Cigarette Smoker M [place] Start: 03-01-2019 End: 03-03-2019 Cigarettes smoked current (pack per day) - Reported [place], [place] Start: 03-03-2019 End: 03-17-2020 Alcohol intake Ex-drinker (finding) [facility] Start: 1980 Sex Assigned At Not on file [place], [place] Start: 03-01-2019 End: 01-15-2020 Tobacco use and exposure Never used [place] Start: 06-15-2021 End: 08-07-2021 Exposure to SARS-CoV-2 (event) Not sure [place] Start: 02-28-2019 [facility] [place] Start: 11-19-2020 End: 08-07-2021 Alcohol intake Current drinker of alcohol (finding) [facility] Work Phone: Start: 11-19-2020 Alcohol Comment socially [employer] Work Phone: Start: 06-29-2021 History SDOH Financial 1 [facility] Work Phone: Start: 06-29-2021 History SDOH Transpo rt Med 2 [facility] Work Phone: Start: 04-10-2022 End: 05-17-2022 Tobacco smoking status NHIS Smoker (finding) [facility] Start: 1980 Sex Assigned At Female F [facility] Medical Equipment Procedure Code Equipment Code Equipment Origin al Text Equipment Identifier Dates Phacoemulsification of cataract with intraocular lens implantation Posterior-chamber intraocular lens, pseudophakic ()[id number] FDA Start: 04-19-2022 Phacoemulsification of cataract with intraocular lens implantation Posterior-chamber intraocular lens, pseudophakic ()[id number] FDA Start: 05-17-2022 1 each by Does n ot apply route at bedtime Ok to substitute per patient/insurance/ Pharmacist preference/availab ility and coverage. [id number] Start: 07-13-2021 Goals Date Patient Goal Desired Activity /State Clinical Notes 11-21-2020 to 08-15-2021 Eugenie Kendrick RN, BSN - 08/15/2021 3:30 PM Vale Medrano RN - 11/22/2020 8:37 AM Vale Medrano RN - 11/22/2020 8:27 AM Radha Meza RN - 11/22/2020 1:20 AM EDTDischarge Instr - Activity Note Date & Type Note Facility 08-15-2021 History of Present illness Narrative Patient was scheduled for appointment on 07/04/21 and she cancelled her appointment. Scheduled for today and did not show. No further attempts will be made to contact patient however, if she is interested in pursuing diabetes education, she may call the office to schedule an appointment. Thank you for the referral. Eugenie Kendrick RN, BSN, [facility] [phone] documented in this encounter [facility] Phone: 11-22-2020 History of Present illness Narrative Patient leaving floor at this time, ambulating independently. Belongings in hand. Discharge instructions reviewed with patient at this time. Patient verbalizes understanding, denies questions at this time. Will escort patient to private car shortly. Pt reassessed at this time. BP 153/104. Scheduled Vasotec administered at this time. Pt complains of pain rated 9 on a 0-10 pain scale but requests only Tylenol at this time which was also administered. Pt denies any other needs. Call light and bedside table remain within reach. FSBS 216 at this time, insulin administered as well as Humalog 3 units per sliding scale. BP rechecked, 171/103. PRN metoprolol administered. Snack provided at this time. Pt denies any other needs at this time. Call light remains within reach. Will monitor. Initial shift assessment done and VS obtained as charted in flow sheet. Pt is A&Ox4. BP 168/90, scheduled Vasotec administered. Pt denies any pain or any other needs at this time. Call light and bedside table within reach. Will monitor. Spoke with Dr. Wells via telephone at this time regarding patient's blood pressures, per Dr. Wells, cancel the discharge order and continue to monitor the blood pressure this afternoon. Billing Services Manager spoke with Dr. Wells at this time regarding patient's blood pressure. Per Dr. Wells, order metoprolol 25 mg daily to start now, and continue the metoprolol at discharge. Per Dr. Wells, recheck blood pressure after lunch and call back with blood pressure reading. Discussed discharge plans with the patient. Patient is a 40 year old female here with Acute hyponatremia. She is alert , oriented , pleasant , and cooperative during our conversation. Patient is single and lives at home with her 16 year old son. She uses a glucometer at home. Patient does the cooking and the house keeping at home. She is independent with her ADL's. Patient manages her own medications and drives. She has no outside services in the home. Her PCP is Reynaldo Vu. She has medical insurance that helps with medication costs. Patient receives food stamps also. The discharge plan is home with no services at this time. She does not have advance directives . SOFTWARE QUALITY SPECIALIST to monitor and assist with any needs or concerns as they arise. BURAK Reeder Billing Services Manager spoke with Dr. Wells via telephone at this time, per Dr. Wells, recheck blood pressure in a couple hours and call back if systolic is still over 150. Patient updated on plan. Discharge instructions reviewed with patient at this time. Patient verbalizes understanding, denies questions at this time. Comprehensive Nutrition Assessment Type and Reason for Visit: Patient Education Nutrition Assessment: Pt experiencing high glucose numbers since being admitted. History of T2DM. Pt states she has been diabetic since a teenageer, and knows what she needs to do. Has experienced a large amount of life stresses over the last 3 years. Due to current living situation, eating a large amount of fast food (door dash). Reviewed importance of carb/protein balance, incorporating healthful snacking, and how blood sugar management can improve mood as well as ability to function. Encouraged pt to see her endo, and consider a refresh coarse with a content specialist & RD. Trying to get an apartment and new job in [place], pt states she is willing to consider different forms of diabetes support/guidance once she is in a better living situation. Contact: [phone] Progress Note Michelle Wells MD OBJECTIVE: Patient seen for f/u of Acute hyponatremia. Na 131,back pain better ROS: Constitutional: negative for fevers, and negative for chills. Respiratory: negative for shortness of breath, negative for cough, and negative for wheezing Cardiovascular: negative for chest pain, and negative for palpitations Gastrointestinal: abdominal pain better, negative for nausea,negative for vomiting, negative for diarrhea, and negative for constipation All other systems were reviewed with the patient and are negative unless otherwise stated in HPI OBJECTIVE: Vitals: Temp: 97.3 F (36.3 C) BP: (!) 184/95 Resp: 18 Pulse: 77 SpO2: 96 % 24HR INTAKE/OUTPUT: Intake/Output Summary (Last 24 hours) at 11/21/2020 0724 Last data filed at 11/21/2020 0716 Gross per 24 hour Intake 3795 ml Output 200 ml Net 3595 ml Exam: GEN: Awake, alert and oriented x3. EYES: EOMI, pupils equal NECK: Supple. No lymphadenopathy. No carotid bruit CVS: regular rate and rhythm, no audible murmur PULM: CTA, no wheezes, rales or rhonchi, no acute respiratory distress ABD: Bowels sounds normal. Abdomen is soft. No distention. no tenderness to palpation. EXT: no edema bilaterally . No calf tenderness. NEURO: Moves all extremities. Motor and sensory are grossly intact SKIN: No rashes. No skin lesions. Diagnostic Data: All available data reviewed Lab Results Component Value Date WBC 6.1 11/21/2020 HGB 13.6 11/21/2020 MCV 87.1 11/21/2020 PLT See Reflexed IPF Result 11/21/2020 Lab Results Component Value Date GLUCOSE 162 (H) 11/21/2020 BUN 10 11/21/2020 CREATININE 0.40 (L) 11/21/2020 NA 131 (L) 11/21/2020 K 3.8 11/21/2020 CALCIUM 8.0 (L) 11/21/2020 CL 100 11/21/2020 CO2 21 11/21/2020 PROBLEM LIST: Principal Problem: Acute hyponatremia Active Problems: Major depression, recurrent (HCC) Type 2 diabetes mellitus without complication, with long-term current use of insulin (HCC) Essential hypertension Resolved Problems: * No resolved hospital problems. * ASSESSMENT / PLAN: Acute hyponatremia Improving,d/c home Type 2 dm- blood sugars are improving htn- improving,resume meds and monitor closely Nutrition status: Well developed, well nourished with no malnutrition DVT prophylaxis: Lovenox High risk medications: none Disposition: Discharge plan is home Michelle Wells MD , M.D. 11/21/2020 7:24 AM Pt. Is alert and oriented x 4 laying on bed at time of assessment. Pt. Denies any pain. Pt. Skin is pink warm and dry, respirations are unlabored. Pt. Vitals are WDL. Pt. Is resting comfortable at this time. Pt. Has call light in reach and gripper socks on . Progress Note Michelle Wells MD OBJECTIVE: Patient seen for f/u of Acute hyponatremia. She mckeon elevated blood pressure and has aome flank and back pain ROS: Constitutional: negative for fevers, and negative for chills. Respiratory: negative for shortness of breath, negative for cough, and negative for wheezing Cardiovascular: negative for chest pain, and negative for palpitations Gastrointestinal: positive for abdominal pain, negative for nausea,negative for vomiting, negative for diarrhea, and negative for constipation All other systems were reviewed with the patient and are negative unless otherwise stated in HPI OBJECTIVE: Vitals: Temp: 97.9 F (36.6 C) BP: (!) 172/88 Resp: 16 Pulse: 76 SpO2: 97 % 24HR INTAKE/OUTPUT: Intake/Output Summary (Last 24 hours) at 11/20/2020 1040 Last data filed at 11/20/2020 0330 Gross per 24 hour Intake 2886.32 ml Output 1600 ml Net 1286.32 ml Exam: GEN: Awake, alert and oriented x3. EYES: EOMI, pupils equal NECK: Supple. No lymphadenopathy. No carotid bruit CVS: regular rate and rhythm, no audible murmur PULM: CTA, no wheezes, rales or rhonchi, no acute respiratory distress ABD: Bowels sounds normal. Abdomen is soft. No distention. no tenderness to palpation. EXT: no edema bilaterally . No calf tenderness. NEURO: Moves all extremities. Motor and sensory are grossly intact SKIN: No rashes. No skin lesions. Diagnostic Data: All available data reviewed Lab Results Component Value Date WBC 7.0 11/20/2020 HGB 13.6 11/20/2020 MCV 86.1 11/20/2020 PLT 324 11/20/2020 Lab Results Component Value Date GLUCOSE 249 (H) 11/20/2020 BUN 11 11/20/2020 CREATININE 0.45 (L) 11/20/2020 NA 128 (L) 11/20/2020 K 3.7 11/20/2020 CALCIUM 8.2 (L) 11/20/2020 CL 97 (L) 11/20/2020 CO2 22 11/20/2020 PROBLEM LIST: Principal Problem: Acute hyponatremia Active Problems: Major depression, recurrent (HCC) Type 2 diabetes mellitus without complication, with long-term current use of insulin (HCC) Essential hypertension Resolved Problems: * No resolved hospital problems. * ASSESSMENT / PLAN: Acute hyponatremia Improving,Continue current therapy Type 2 dm- blood sugars are improving htn- improving,resume meds and monitor closely Nutrition status: Well developed, well nourished with no malnutrition DVT prophylaxis: Lovenox High risk medications: none Disposition: Discharge plan is home Michelle Wells MD , M.D. 11/20/2020 10:40 AM Billing Services Manager entered room to reassess patient. VS rechecked. Pt continues to be A&Ox4. BP elevated to 179/96. Pt also complaints of pain rated 9 to lower back. Billing Services Manager noted next prn dose of metoprolol was not available and contacted Dr. Wells to address. Orders received for scheduled Vasotec and prn Toradol. Will administer once verified by pharmacy. Call light and bedside table remain within reach. PRN metoprolol administered as ordered. Snack provided to patient. Pt denies any other needs at this time and is currently in bed watching television. Pt states pain is improved down to a 4 on a 0-10 pain scale. Call light and bedside table remain within reach. Will continue to monitor. Initial shift assessment done and VS obtained as charted in flow sheet. Pt is A&Ox4, answers questions appropriately. Pt has complaints of pain and BP elevated at 180/97. FSBS 281.Insulin administered as ordered. Billing Services Manager contacted Dr. Wells regarding elevated BP, order received for prn metoprolol for SBP > 140. Will administer once verified by pharmacy. documented in this encounter [facility] Phone: 11-21-2020 Hospital Discharge instructions Vale Baker RN - 11/21/2020 8:47 AM EDT As tolerated. Vale Baker RN - 11/21/2020 8:47 AM EDT Good nutrition is important when healing from an illness, injury, or surgery. Follow any nutrition recommendations given to you during your hospital stay. If you were given an oral nutrition supplement while in the hospital, continue to take this supplement at home. You can take it with meals, in-between meals, and/or before bedtime. These supplements can be purchased at most local grocery stores, pharmacies, and [employer]. If you have any questions about your diet or nutrition, call the hospital and ask for the dietitian. Diabetic diet. Vale Baker RN - 11/21/2020 Resume all home medications unless otherwise directed Stop taking lopid Patient Instructions: Activity: activity as tolerated Diet: diabetic diet Follow up with PCP in 1 wk as directed The following attachments cannot be sent through Care Everywhere.Hyponatremia (Tongan)Hypertension (Tongan)documented in this encounter [facility] Phone: 11-21-2020 Hospital course Narrative Physician Discharge Summary Michelle Wells MD Patient ID: Carlos Eduardo Posada [id number] Admission date: 11/19/2020 Discharge date: 11/22/2020 Admitting Physician: Michelle Wells MD Primary Care Physician: Reynaldo Vu Primary Discharge Diagnoses: Patient Active Problem List Diagnosis Date Noted Acute cystitis without hematuria 03/17/2020 Acute hyponatremia 03/17/2020 Hypokalemia 03/17/2020 Acute UTI 03/17/2020 Type 2 diabetes mellitus without complication, with long-term current use of insulin ([facility]) 03/02/2019 Essential hypertension 03/02/2019 Major depression, recurrent ([facility]) 03/01/2019 Additional Diagnoses: Diagnosis Date Diabetes ([facility]) Hyperlipidemia Hypertension Neuropathy Osteoarthritis Pancreatitis Review of Systems: Constitutional: negative for fevers or chills Eyes: negative for visual disturbance ENT: negative for sore throat or nasal congestion Respiratory: negative for shortness of breath or cough Cardiovascular: negative for chest pain ,palpitations,pnd,syncope Gastrointestinal: negative for abd pain, nausea, vomiting, diarrhea , constipation,hemetemesis,tania,b lood in stool Genitourinary: negative for dysuria, urgency ,frequency,hematuria Integument/breast: negative for skin rash or lesions Neurological: negative for unilateral weakness, numbness or tingling. Skeletal Muscular: no joint pain,jont swelling,back pain Physical exam: Exam: GEN: A & O x3, no apparent distress EYES: No gross abnormalities. NECK: normal, supple, no lymphadenopathy, no carotid bruits PULM: clear to auscultation bilaterally- no wheezes, rales or rhonchi, normal air movement, no respiratory distress COR: regular rate & rhythm, no murmurs and no gallops ABD: soft, non-tender, non-distended, normal bowel sounds, no masses or organomegaly EXT: no cyanosis, clubbing or edema present NEURO: negative SKIN: no rashes or significant lesions Hospital Course: The patient was admitted for the above. She was treated with iv fluids ,iv metoprolol ,vasotec and norvasc. She had difficult to control bp And slowly improved over the course of her hospitalization. Consultants: none Procedures: none Complications: none Significant Diagnostic Studies: CT ABDOMEN PELVIS WO CONTRAST Additional Contrast? None Result Date: 11/19/2020 EXAMINATION: CT OF THE ABDOMEN AND PELVIS WITHOUT CONTRAST 11/19/2020 7:49 am TECHNIQUE: CT of the abdomen and pelvis was performed without the administration of intravenous contrast. Multiplanar reformatted images are provided for review. Dose modulation, iterative reconstruction, and/or weight based adjustment of the mA/kV was utilized to reduce the radiation dose to as low as reasonably achievable. COMPARISON: 03/17/2020 HISTORY: ORDERING SYSTEM PROVIDED HISTORY: R flank pain TECHNOLOGIST PROVIDED HISTORY: R flank pain Decision Support Exception - unselect if not a suspected or confirmed emergency medical condition->Emergency Medical Condition (MA) Is the patient ?->No FINDINGS: Lower Chest: The visualized heart and lungs show no acute abnormalities. Organs: Cholecystectomy. Liver, spleen, pancreas and adrenal glands show no significant abnormalities. No renal calculi. No hydronephrosis. GI/Bowel: There is limited evaluation due to absence of oral contrast. Stomach grossly normal. Normal caliber small bowel loops showing no focal lesions. The appendix is normal. Evaluation of the colon shows no acute process. Pelvis: Uterus and urinary bladder grossly normal. No suspicious pelvic mass. Phleboliths noted. Peritoneum/Retroperitoneum: No free intraperitoneal fluid. No significant lymphadenopathy. Ureters show no calculi. Bones/Soft Tissues: No acute abnormality of the bones. The superficial soft tissues show no significant abnormalities. 1. No acute infective or inflammatory process. 2. No urinary tract calculi. XR CHEST (SINGLE VIEW FRONTAL) Result Date: 11/19/2020 EXAMINATION: ONE XRAY VIEW OF THE CHEST 11/19/2020 6:01 am COMPARISON: January 15, 2020 HISTORY: ORDERING SYSTEM PROVIDED HISTORY: flank pain TECHNOLOGIST PROVIDED HISTORY: flank pain FINDINGS: The lungs are without acute focal process. There is no effusion or pneumothorax. The cardiomediastinal silhouette is without acute process. The osseous structures are without acute process. No evidence of acute cardiopulmonary disease. Recent Results (from the past 96 hour(s)) CBC auto differential Collection Time: 11/19/20 6:02 AM Result Value Ref Range WBC 11.6 (H) 3.5 - 11.3 k/uL RBC 5.00 3.95 - 5.11 m/uL Hemoglobin 15.7 (H) 11.9 - 15.1 g/dL Hematocrit 43.0 36.3 - 47.1 % MCV 86.0 82.6 - 102.9 fL MCH 31.4 25.2 - 33.5 pg MCHC 36.5 (H) 28.4 - 34.8 g/dL RDW 12.4 11.8 - 14.4 % Platelets 410 138 - 453 k/uL MPV 10.4 8.1 - 13.5 fL NRBC Automated 0.0 0.0 per 100 WBC Differential Type NOT REPORTED Seg Neutrophils 71 (H) 36 - 65 % Lymphocytes 22 (L) 24 - 43 % Monocytes 5 3 - 12 % Eosinophils % 1 1 - 4 % Basophils 1 0 - 2 % Immature Granulocytes 0 0 % Segs Absolute 8.22 (H) 1.50 - 8.10 k/uL Absolute Lymph # 2.58 1.10 - 3.70 k/uL Absolute [place] # 0.63 0.10 - 1.20 k/uL Absolute Eos # 0.09 0.00 - 0.44 k/uL Basophils Absolute 0.06 0.00 - 0.20 k/uL Absolute Immature Granulocyte 0.05 0.00 - 0.30 k/uL WBC Morphology NOT REPORTED RBC Morphology NOT REPORTED Platelet Estimate NOT REPORTED Comprehensive Metabolic Panel Collection Time: 11/19/20 6:02 AM Result Value Ref Range Glucose 529 (HH) 70 - 99 mg/dL BUN 17 6 - 20 mg/dL CREATININE 0.58 0.50 - 0.90 mg/dL Bun/Cre Ratio 29 (H) 9 - 20 Calcium 8.5 (L) 8.6 - 10.4 mg/dL Sodium 117 (LL) 135 - 144 mmol/L Potassium 5.0 3.7 - 5.3 mmol/L Chloride 85 (L) 98 - 107 mmol/L CO2 18 (L) 20 - 31 mmol/L Anion Gap 14 9 - 17 mmol/L Alkaline Phosphatase 94 35 - 104 U/L ALT 5 5 - 33 U/L AST 5 <32 U/L Total Bilirubin 0.15 (L) 0.3 - 1.2 mg/dL Total Protein 5.4 (L) 6.4 - 8.3 g/dL Albumin 2.7 (L) 3.5 - 5.2 g/dL Albumin/Globulin Ratio 1.0 1.0 - 2.5 GFR Non- >60 >60 mL/min GFR >60 >60 mL/min GFR Comment GFR Staging HCG Qualitative, Serum Collection Time: 11/19/20 6:02 AM Result Value Ref Range hCG Qual NEGATIVE NEGATIVE Urinalysis Reflex to Culture Collection Time: 11/19/20 6:02 AM Specimen: Urine, clean catch Result Value Ref Range Color, UA YELLOW YELLOW Turbidity UA CLEAR CLEAR Glucose, Ur 3+ (A) NEGATIVE Bilirubin Urine NEGATIVE NEGATIVE Ketones, Urine 1+ (A) NEGATIVE Specific [place], UA 1.015 1.010 - 1.020 Urine Hgb 1+ (A) NEGATIVE pH, UA 6.0 5.0 - 9.0 Protein, UA 2+ (A) NEGATIVE Urobilinogen, Urine Normal Normal Nitrite, Urine NEGATIVE NEGATIVE Leukocyte Esterase, Urine NEGATIVE NEGATIVE Urinalysis Comments NOT REPORTED Microscopic Urinalysis Collection Time: 11/19/20 6:02 AM Result Value Ref Range - WBC, UA None 0 - 5 /HPF RBC, UA None 0 - 2 /HPF Casts UA NOT REPORTED /LPF Crystals, UA NOT REPORTED None /HPF Epithelial Cells UA 2 TO 5 0 - 25 /HPF Renal Epithelial, UA NOT REPORTED 0 /HPF Bacteria, UA NOT REPORTED None Mucus, UA NOT REPORTED None Trichomonas, UA NOT REPORTED None Amorphous, UA NOT REPORTED None Other Observations UA NOT REPORTED NOT REQ. Yeast, UA NOT REPORTED None Lipase Collection Time: 11/19/20 7:21 AM Result Value Ref Range Lipase 71 (H) 13 - 60 U/L Glucose, Whole Blood Collection Time: 11/19/20 9:51 AM Result Value Ref Range POC Glucose 357 (H) 74 - 100 mg/dL Glucose, Whole Blood Collection Time: 11/19/20 11:36 AM Result Value Ref Range POC Glucose 356 (H) 74 - 100 mg/dL POCT glucose Collection Time: 11/19/20 11:44 AM Result Value Ref Range Glucose 346 mg/dL Basic Metabolic Panel Collection Time: 11/19/20 12:08 PM Result Value Ref Range Glucose 393 (H) 70 - 99 mg/dL BUN 15 6 - 20 mg/dL CREATININE 0.52 0.50 - 0.90 mg/dL Bun/Cre Ratio 29 (H) 9 - 20 Calcium 8.6 8.6 - 10.4 mg/dL Sodium 124 (L) 135 - 144 mmol/L Potassium 5.1 3.7 - 5.3 mmol/L Chloride 92 (L) 98 - 107 mmol/L CO2 22 20 - 31 mmol/L Anion Gap 10 9 - 17 mmol/L GFR Non- >60 >60 mL/min GFR >60 >60 mL/min GFR Comment GFR Staging Osmolality Collection Time: 11/19/20 1:28 PM Result Value Ref Range Serum Osmolality 298 (H) 275 - 295 mOsm/kg Glucose, Whole Blood Collection Time: 11/19/20 4:06 PM Result Value Ref Range POC Glucose 382 (H) 74 - 100 mg/dL Osmolality, urine Collection Time: 11/19/20 8:15 PM Result Value Ref Range Osmolality, Ur 524 80 - 1300 mOsm/kg Sodium, urine, random Collection Time: 11/19/20 8:15 PM Result Value Ref Range Sodium,Ur <20 mmol/L Glucose, Whole Blood Collection Time: 11/19/20 8:26 PM Result Value Ref Range POC Glucose 281 (H) 74 - 100 mg/dL CBC auto differential Collection Time: 11/20/20 6:05 AM Result Value Ref Range WBC 7.0 3.5 - 11.3 k/uL RBC 4.38 3.95 - 5.11 m/uL Hemoglobin 13.6 11.9 - 15.1 g/dL Hematocrit 37.7 36.3 - 47.1 % MCV 86.1 82.6 - 102.9 fL MCH 31.1 25.2 - 33.5 pg MCHC 36.1 (H) 28.4 - 34.8 g/dL RDW 12.2 11.8 - 14.4 % Platelets 324 138 - 453 k/uL MPV 10.4 8.1 - 13.5 fL NRBC Automated 0.0 0.0 per 100 WBC Differential Type NOT REPORTED WBC Morphology NOT REPORTED RBC Morphology NOT REPORTED Platelet Estimate NOT REPORTED Seg Neutrophils 60 36 - 65 % Lymphocytes 29 24 - 43 % Monocytes 8 3 - 12 % Eosinophils % 3 1 - 4 % Basophils 1 0 - 2 % Immature Granulocytes 0 0 % Segs Absolute 4.25 1.50 - 8.10 k/uL Absolute Lymph # 2.01 1.10 - 3.70 k/uL Absolute [place] # 0.53 0.10 - 1.20 k/uL Absolute Eos # 0.18 0.00 - 0.44 k/uL Basophils Absolute 0.05 0.00 - 0.20 k/uL Absolute Immature Granulocyte <0.03 0.00 - 0.30 k/uL Comprehensive Metabolic Panel w/ Reflex to MG Collection Time: 11/20/20 6:05 AM Result Value Ref Range Glucose 249 (H) 70 - 99 mg/dL BUN 11 6 - 20 mg/dL CREATININE 0.45 (L) 0.50 - 0.90 mg/dL Bun/Cre Ratio 24 (H) 9 - 20 Calcium 8.2 (L) 8.6 - 10.4 mg/dL Sodium 128 (L) 135 - 144 mmol/L Potassium 3.7 3.7 - 5.3 mmol/L Chloride 97 (L) 98 - 107 mmol/L CO2 22 20 - 31 mmol/L Anion Gap 9 9 - 17 mmol/L Alkaline Phosphatase 90 35 - 104 U/L ALT <5 (L) 5 - 33 U/L AST <5 <32 U/L Total Bilirubin <0.10 (L) 0.3 - 1.2 mg/dL Total Protein 5.2 (L) 6.4 - 8.3 g/dL Albumin 2.6 (L) 3.5 - 5.2 g/dL Albumin/Globulin Ratio 1.0 1.0 - 2.5 GFR Non- >60 >60 mL/min GFR >60 >60 mL/min GFR Comment GFR Staging Glucose, Whole Blood Collection Time: 11/20/20 7:16 AM Result Value Ref Range POC Glucose 221 (H) 74 - 100 mg/dL Glucose, Whole Blood Collection Time: 11/20/20 10:45 AM Result Value Ref Range POC Glucose 300 (H) 74 - 100 mg/dL Glucose, Whole Blood Collection Time: 11/20/20 3:51 PM Result Value Ref Range POC Glucose 215 (H) 74 - 100 mg/dL Glucose, Whole Blood Collection Time: 11/20/20 8:11 PM Result Value Ref Range POC Glucose 170 (H) 74 - 100 mg/dL CBC auto differential Collection Time: 11/21/20 6:12 AM Result Value Ref Range WBC 6.1 3.5 - 11.3 k/uL RBC 4.48 3.95 - 5.11 m/uL Hemoglobin 13.6 11.9 - 15.1 g/dL Hematocrit 39.0 36.3 - 47.1 % MCV 87.1 82.6 - 102.9 fL MCH 30.4 25.2 - 33.5 pg MCHC 34.9 (H) 28.4 - 34.8 g/dL RDW 12.5 11.8 - 14.4 % Platelets See Reflexed IPF Result 138 - 453 k/uL MPV NOT REPORTED 8.1 - 13.5 fL NRBC Automated 0.0 0.0 per 100 WBC Differential Type NOT REPORTED WBC Morphology NOT REPORTED RBC Morphology NOT REPORTED Platelet Estimate NOT REPORTED Seg Neutrophils 55 36 - 65 % Lymphocytes 31 24 - 43 % Monocytes 9 3 - 12 % Eosinophils % 3 1 - 4 % Immature Granulocytes 1 (H) 0 % Basophils 1 0 - 2 % Segs Absolute 3.36 1.50 - 8.10 k/uL Absolute Lymph # 1.89 1.10 - 3.70 k/uL Absolute [place] # 0.55 0.10 - 1.20 k/uL Absolute Eos # 0.18 0.00 - 0.44 k/uL Absolute Immature Granulocyte 0.06 0.00 - 0.30 k/uL Basophils Absolute 0.06 0.00 - 0.20 k/uL Morphology Platelet clumps present, count appears increased. Comprehensive Metabolic Panel w/ Reflex to MG Collection Time: 11/21/20 6:12 AM Result Value Ref Range Glucose 162 (H) 70 - 99 mg/dL BUN 10 6 - 20 mg/dL CREATININE 0.40 (L) 0.50 - 0.90 mg/dL Bun/Cre Ratio 25 (H) 9 - 20 Calcium 8.0 (L) 8.6 - 10.4 mg/dL Sodium 131 (L) 135 - 144 mmol/L Potassium 3.8 3.7 - 5.3 mmol/L Chloride 100 98 - 107 mmol/L CO2 21 20 - 31 mmol/L Anion Gap 10 9 - 17 mmol/L Alkaline Phosphatase 86 35 - 104 U/L ALT <5 (L) 5 - 33 U/L AST <5 <32 U/L Total Bilirubin <0.10 (L) 0.3 - 1.2 mg/dL Total Protein 5.3 (L) 6.4 - 8.3 g/dL Albumin 2.8 (L) 3.5 - 5.2 g/dL Albumin/Globulin Ratio 1.1 1.0 - 2.5 GFR Non- >60 >60 mL/min GFR >60 >60 mL/min GFR Comment GFR Staging Immature Platelet Fraction Collection Time: 11/21/20 6:12 AM Result Value Ref Range Platelet, Immature Fraction 7.0 1.1 - 10.3 % Platelet, Fluorescence 240 138 - 453 k/uL Glucose, Whole Blood Collection Time: 11/21/20 7:24 AM Result Value Ref Range POC Glucose 133 (H) 74 - 100 mg/dL Glucose, Whole Blood Collection Time: 11/21/20 11:13 AM Result Value Ref Range POC Glucose 195 (H) 74 - 100 mg/dL Glucose, Whole Blood Collection Time: 11/21/20 4:44 PM Result Value Ref Range POC Glucose 186 (H) 74 - 100 mg/dL Glucose, Whole Blood Collection Time: 11/21/20 9:55 PM Result Value Ref Range POC Glucose 216 (H) 74 - 100 mg/dL CBC auto differential Collection Time: 11/22/20 6:05 AM Result Value Ref Range WBC 6.3 3.5 - 11.3 k/uL RBC 4.60 3.95 - 5.11 m/uL Hemoglobin 14.0 11.9 - 15.1 g/dL Hematocrit 40.0 36.3 - 47.1 % MCV 87.0 82.6 - 102.9 fL MCH 30.4 25.2 - 33.5 pg MCHC 35.0 (H) 28.4 - 34.8 g/dL RDW 12.5 11.8 - 14.4 % Platelets 323 138 - 453 k/uL MPV 10.6 8.1 - 13.5 fL NRBC Automated 0.0 0.0 per 100 WBC Differential Type NOT REPORTED Seg Neutrophils 56 36 - 65 % Lymphocytes 31 24 - 43 % Monocytes 9 3 - 12 % Eosinophils % 3 1 - 4 % Basophils 1 0 - 2 % Immature Granulocytes 0 0 % Segs Absolute 3.52 1.50 - 8.10 k/uL Absolute Lymph # 1.96 1.10 - 3.70 k/uL Absolute [place] # 0.54 0.10 - 1.20 k/uL Absolute Eos # 0.18 0.00 - 0.44 k/uL Basophils Absolute 0.06 0.00 - 0.20 k/uL Absolute Immature Granulocyte <0.03 0.00 - 0.30 k/uL WBC Morphology NOT REPORTED RBC Morphology NOT REPORTED Platelet Estimate NOT REPORTED Glucose, Whole Blood Collection Time: 11/22/20 7:00 AM Result Value Ref Range POC Glucose 111 (H) 74 - 100 mg/dL Discharge Condition: stable Disposition: home Discharge Medications: Carlos Eduardo Posada Home Medication Instructions MAR:[id number] Printed on:11/22/2009 Medication Information amLODIPine (NORVASC) 10 MG tablet Take 1 tablet by mouth daily canagliflozin (INVOKANA) 100 MG TABS tablet Take 100 mg by mouth every morning (before breakfast) docusate sodium (COLACE) 100 MG capsule Take 100 mg by mouth 2 times daily as needed for Constipation DULoxetine (CYMBALTA) 60 MG extended release capsule Take 60 mg by mouth daily fenofibrate micronized (LOFIBRA) 134 MG capsule Take 134 mg by mouth every morning (before breakfast) ibuprofen (ADVIL;MOTRIN) 600 MG tablet Take 1 tablet by mouth 4 times daily as needed for Pain insulin glargine (LANTUS SOLOSTAR) 100 UNIT/ML injection pen Inject 60 Units into the skin nightly lisinopril (PRINIVIL;ZESTRIL) 20 MG tablet Take 1 tablet by mouth daily metFORMIN (GLUCOPHAGE) 500 MG tablet Take 1,000 mg by mouth 2 times daily (with meals) metoprolol succinate (TOPROL XL) 25 MG extended release tablet Take 1 tablet by mouth daily [place]-3 Fatty Acids (FISH OIL) 1000 MG CPDR Take 1,000 mg by mouth daily tiZANidine (ZANAFLEX) 4 MG tablet Take 1 tablet by mouth every 8 hours as needed (muscle pain and cramping/stiffness) valACYclovir (VALTREX) 500 MG tablet Take 500 mg by mouth daily Resume all home medications unless otherwise directed Add as above Stop taking lopid Patient Instructions: Activity: activity as tolerated Diet: diabetic diet Wound Care: none needed Other: Follow up with PCP in 1 wk as directed Time Spent on discharge services is 25 minutes in the examination, evaluation, counseling and review of medications and discharge plan. Signed: Michelle Wells MD, M.D. 11/22/2020 7:09 AM documented in this encounter [facility] Phone: Evaluation note Diagnosis Acute hyponatremia- Primary Hyposmolality and/or hyponatremia Right flank pain Abdominal pain, unspecified site Hyponatremia Hyposmolality and/or hyponatremia Hyperglycemia due to diabetes mellitus (HCC) Flank pain Abdominal pain, unspecified site Type 2 diabetes mellitus without complication, with long-term current use of insulin (HCC) Essential hypertension Unspecified essential hypertension Major depression, recurrent (HCC) Major depressive disorder, recurrent episode, unspecified documented in this encounter [facility] Phone: [email or web address] note* Diagnosis Premenstrual dysphoric disorder- Primary Premenstrual tension syndromes Moderate episode of recurrent major depressive disorder (HCC) documented in this encounter [facility] Phone: [email or web address] note* Diagnosis Hypertriglyceridemia Pure hyperglyceridemia Dyslipidemia Other and unspecified hyperlipidemia Type 2 diabetes mellitus with other specified complication, unspecified whether intermediate accountant insulin use ([facility]) Hypovitaminosis D Unspecified vitamin D deficiency documented in this encounter [facility] Phone: [email or web address] note* Diagnosis Encounter for gynecological examination Possible exposure to STD Other specified personal history presenting hazards to health documented in this encounter [facility] Phone: [email or web address] note* Diagnosis Possible exposure to STD Other specified personal history presenting hazards to health documented in this encounter [facility] Phone: [email or web address] noteNo assessment information available [facility] Work Phone: Hospital Discharge instructions* Instructions* Randall De La Garza MD - 06/25/2021 I think that you have premenstrual dysphoric syndrome. They make specific treatment regimens I can help this but I think you need a psychiatrist to get you on them. After you that you may benefit from the pain medicine consult your possible hysterectomy as needed. * Attachments The following attachments cannot be sent through Care Everywhere. * Depression: Treatment (Tongan) documented in this encounterYodle Phone: Hospital Discharge instructions Additional Instructions POST CATARACT SURGERY INSTRUCTIONS EYEDROPS First day (24 hours) [Ocuflox or Vigamox and Pred Forte-use 1 drop to operative eye every hour while awake.] [Artificial tears- May use 1 drop 4 times a day as needed in the surgical eye.] Next day [Ocuflox or Vigamox-continue to use the drop in the surgery eye 4 times per day for 1 week.] [Pred Forte-start using the drop in the surgery eye 4 times per day for 1 week, then taper to 3 times per day for 1 week, 2 times a day for 1 week, then once a day for 1 week.] [Artificial tears- May use 1 drop 4 times a day as needed in the surgical eye.] -Wait 5 minutes or more between using the different medications. -Please bring all your eyedrops to every follow-up visit. BATHING: You may shower, bathe, or wash her hair normally after the surgery. SUNGLASSES: Please bring sunglasses for your ride home. Some people are light- sensitive for a few weeks following surgery. Wear sunglasses for comfort. Sunglasses are not required. DUE TO ANESTHESIA: DO NOT make complex decision/sign legal documents for 24 hours after your procedure. No smoking or drinking alcohol for 24 hours. EYE RUBBING: DO NOT RUB YOUR EYE for at least 4 weeks. BLUR: Blurriness is common for several days to weeks. IRRITATION: Mild irritation or watering eye is common. MEDICATION: Continue/resume normal medications, including eye drops. Patient educated on importance of managing medication information: -Give list of medications to primary care physician. -Update information when medications are discontinued, doses are changed or new medications added. -Carry medication list with you at all times in case of emergency. Call if questions/problems occur: If you experience 1. Persistent pain/vomiting 2. Sudden worsening of your eyesight. Please call your precinct commanding officer during normal business hours. If after business hours call Dr. Jaun Sanon at his cell [phone] or his office [phone].[facility] Work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 195)1645 (Given - Provider: Vale Baker RN - Comment: fsbs 186) insulin lispro (HUMALOG) injection vial 0-9 Units 0-9 Units, Subcutaneous, NIGHTLY, First dose on 11/19/20 at 2100, If continuous tube feedings/TPN/NPO, give correction dose based on result, no reduction in dose. If eating or bolus tube feeding: High Dose Bedtime Correction Algorithm Glucose: Dose: 70-139 No Insulin 140-199 2 Units 200-249 3 Units 250-299 5 Units 300-349 6 Units 350-399 7 Units 400 and above 9 Units 2033 (Given - Provider: Radha López RN - Comment: fsbs 281) 2012 (Given - Provider: Carolee Keenan RN) 2154 (Given - Provider: Radha López RN - Comment: FSBS 216) insulin regular (HUMULIN R;NOVOLIN R) injection 10 Units (COMPLETED) 10 Units, Intravenous, ONCE, On 11/19/20 at 0845, For 1 dose 0839 (Given - Provider: Mercy Finn RN) ketorolac (TORADOL) injection 15 mg (COMPLETED) 15 mg, Intravenous, ONCE, On 11/19/20 at 0600, For 1 dose 0609 (Given - Provider: July Velez, ALLYSON) lisinopril (PRINIVIL;ZESTRIL) tablet 5 mg (COMPLETED) 5 mg, Oral, ONCE, On 11/19/20 at 0600, For 1 dose 0612 (Given - Provider: July Velez RN) lisinopril (PRINIVIL;ZESTRIL) tablet 5 mg 5 mg, Oral, DAILY, First dose on 11/19/20 at 1545 1548 (Not Given - Provider: Shelbie Rizo RN - Reason: Patient took at home) 0843 (Given - Provider: Shelbie Rizo RN) 0837 (Given - Provider: Vale Baker RN) metFORMIN (GLUCOPHAGE) tablet 1,000 mg 1,000 mg, Oral, 2 TIMES DAILY WITH MEALS, First dose on 11/19/20 at 1700 1623 (Given - Provider: Shelbie Rizo RN) 0843 (Given - Provider: Shelbie Rizo RN)1634 (Given - Provider: Shelbie Rizo RN) 0837 (Given - Provider: Vale Baker RN)1645 (Given - Provider: Vale Baker RN) metoprolol succinate (TOPROL XL) extended release tablet 25 mg 25 mg, Oral, DAILY, First dose on 11/21/20 at 1130, Do not crush or chew. 1112 (Given - Provider: Vale Baker RN) omega-3 acid ethyl esters (LOVAZA) capsule 1,000 mg 1,000 mg, Oral, DAILY, First dose on Sat11/20/20 at 0900 0843 (Given - Provider: Shelbie Rizo RN) 0836 (Given - Provider: Vale Kin, RN) sodium chloride flush 0.9 % injection 5-40 mL 5-40 mL, Intravenous, EVERY 12 HOURS SCHEDULED (2 times per day), First dose on 11/19/20 at 2100, For Line Patency: Peripheral IV = 5 mL; Midline or Central Line = 10 mL/lumen. If following IV push medication, administer flush at same rate as the IV push. Flush volume is determined by type of infusion therapy being given. For non-viscous solutions use: Peripheral IV = 5 mL Midline or Central Line = 10 mL/lumen For viscous solutions (i.e. blood components, parenteral nutrition, contrast media, or after obtaining blood sample) use: Peripheral IV = 10 mL Midline or Central Line = 20 mL/lumen 2026 (Not Given - Provider: Radha López RN - Reason: IV Fluid Infusing) 0844 (Not Given - Provider: Shelbie Rizo, RN - Reason: IV Fluid Infusing)2015 (Given - Provider: Carolee Keenan RN) 0837 (Given - Provider: Vale Baker, RN)1999 (Given - Provider: Radha López RN) Continuous Medication Order 11/19/2020 11/20/2020 11/21/2020 0.9 % sodium chloride infusion (CANCELED) Intravenous, at 150 mL/hr, CONTINUOUS, Starting on 11/19/20 at 1545 1528 (New Bag - Provider: Shelbie Rizo RN)2142 (New Bag - Provider: Radha López, RN) 0700 (New Bag - Provider: Shelbie Rizo, RN)1330 (New Bag - Provider: Shelbie Rizo, RN) PRN Medication Order 11/19/2020 11/20/2020 11/21/2020 0.9 % sodium chloride infusion 25 mL, Intravenous, at 100 mL/hr, PRN, If patient receiving piggyback infusions without ordered maintenance IV fluids or with frequent/long duration piggyback infusions, Starting on 11/19/20 at 1517, Administer at the same rate as the piggyback being infused. acetaminophen (TYLENOL) suppository 650 mg(Linked Group 1) 650 mg, Rectal, EVERY 6 HOURS PRN, Pain Mild (1-3), Fever, For temp greater than 100.4 F (38 C), Starting on 11/19/20 at 1517, Administer if oral route cannot be used. 0930 (See Alternativ e - Provider: Vale Baker RN) acetaminophen (TYLENOL) tablet 650 mg(Linked Group 1) 650 mg, Oral, EVERY 6 HOURS PRN, Pain Mild (1-3), Fever, For temp greater than 100.4 F (38 C), Starting on 11/19/20 at 1517, Maximum dose of acetaminophen is 4000 mg from all sources in 24 hours. 0930 (Given - Provider: Vale Baker RN) dextrose 5 % solution 100 mL/hr, Intravenous, at 100 mL/hr, PRN, Low blood sugar, Starting on 11/19/20 at 1517, Start infusion following administration of dextrose 50% or glucagon. dextrose 50 % IV solution 12.5 g, Intravenous, PRN, Low blood sugar, Blood glucose less than 70 mg/dL and patient NOT ALERT or NPO., Starting on 11/19/20 at 1517, If patient does not respond within 5 minutes, repeat dose x1. Start D5W at 100 mL/hour until ordering provider can be reached. Repeat blood glucose in 15 minutes. If blood glucose is less than 70 mg/dL, repeat treatment and recheck blood glucose in 15 minutes x2. If using Glucostabilizer, dose as instructed per system. docusate sodium (COLACE) capsule 100 mg 100 mg, Oral, 2 TIMES DAILY PRN, Constipation, Starting on 11/19/20 at 1515, Do not crush or break. glucagon (rDNA) injection 1 mg 1 mg, Intramuscular, PRN, Low blood sugar, Blood glucose less than 70 mg/dL and patient NOT ALERT or NPO and does not have IV access., Starting on 11/19/20 at 1517, After administration, attempt intravenous access and start D5W at 100 mL/hr. Repeat blood glucose in 15 minutes x2 and notify provider. glucose (GLUTOSE) 40 % oral gel 15 g 15 g, Oral, PRN, Low blood sugar, Starting on 11/19/20 at 1517, If blood glucose less than 50 mg/dL and patient ALERT and TOLERATING PO, give 2 tubes glucose gel. If blood glucose less than 70 mg/dL and patient ALERT and TOLERATING PO, give 1 tube glucose gel. Repeat blood glucose in 15 minutes. If blood glucose is less than 70 mg/dL, repeat treatment and recheck blood glucose in 15 minutes x2 and notify provider. ketorolac (TORADOL) injection 15 mg 15 mg, Intravenous, EVERY 6 HOURS PRN, Pain Moderate (4-6), Pain Severe (7-10), Starting on 11/20/20 at 0107, For 5 days, Do not administer for more than 5 days. 0127 (Given - Provider: Radha López RN)0847 (Given - Provider: Shelbie Rizo RN) 0032 (Given - Provider: Clau Stewart RN) metoprolol (LOPRESSOR) injection 5 mg 5 mg, Intravenous, EVERY 6 HOURS PRN, High Blood Pressure, SBP > 140, Starting on 11/19/20 at 2057 2141 (Given - Provider: Radha López RN - Comment: BP 178/96) 0340 (Given - Provider: Radha López RN - Comment: BP 170/87) 0436 (Given - Provider: Carolee Keenan RN)2201 (Given - Provider: Radha López RN) ondansetron (ZOFRAN) injection 4 mg(Linked Group 2) 4 mg, Intravenous, EVERY 6 HOURS PRN, Nausea, Vomiting, Starting on 11/19/20 at 1517, Administer if oral route cannot be used. ondansetron (ZOFRAN-ODT) disintegrating tablet 4 mg(Linked Group 2) 4 mg, Oral, EVERY 8 HOURS PRN, Nausea, Vomiting, Starting on 11/19/20 at 1517 tiZANidine (ZANAFLEX) tablet 4 mg 4 mg, Oral, EVERY 8 HOURS PRN, muscle pain and cramping/stiffness, Starting on 11/19/20 at 1516 2026 (Given - Provider: Radha López RN) Linked Groups Order Group 1: acetaminophen (TYLENOL) tablet 650 mgJump to med 650 mg, Oral, EVERY 6 HOURS PRN, Pain Mild (1-3), Fever, For temp greater than 100.4 F (38 C), Starting on 11/19/20 at 1517
Maximum dose of acetaminophen is 4000 mg from all sources in 24 hours.
Or acetaminophen (TYLENOL) suppository 650 mgJump to med 650 mg, Rectal, EVERY 6 HOURS PRN, Pain Mild (1-3), Fever, For temp greater than 100.4 F (38 C), Starting on 11/19/20 at 1517
Administer if oral route cannot be used.
Group 2: ondansetron (ZOFRAN-ODT) disintegrating tablet 4 mgJump to med 4 mg, Oral, EVERY 8 HOURS PRN, Nausea, Vomiting, Starting on 11/19/20 at 1517 Or ondansetron (ZOFRAN) injection 4 mgJump to med 4 mg, Intravenous, EVERY 6 HOURS PRN, Nausea, Vomiting, Starting on 11/19/20 at 1517
Administer if oral route cannot be used.
Care Teams (unrecognized sec tion and content) Senior Software Manager Relationship Specialty Start Date End Date Anh Lake DO [address] [place], [place] [id number] PCP - General 06/25/21 Senior Software Manager Relationship Specialty Start Date End Date Rico Cortez MD [address] [place] [address] [address] PCP - General Family Medicine 06/29/21 Senior Software Manager Relationship Specialty Start Date End Date Rico Cortez MD [address] [place] [address] [address] [place] [address] PCP - General Family Medicine 06/29/21 Senior Software Manager Relationship Specialty Start Date End Date Rico Cortez MD [address] [place] [address] [facility] [address] [place] [address] PCP - General Family Medicine 06/29/21 Team Status: Inactive Member Role Status Dates Jaun Sanon MD Attending Provider Active Anh Lake DO Primary Care Provider Active Team Status: Active Member Role Status Dates Anh Lake DO Primary Care Provider Active Team Status: Inactive Member Role Status Dates Anh Lake DO Primary Care Provider Active Florencio Salvador Attending Provider Active Goals (unrecognized section and content) Goals may be documented in a n alternate sectionGoals may be documented in an alternate section FOR RECORDS PERTAINING TO PATIENTS WHO ARE OR HAVE BEEN ENROLLED IN A CHEMICAL DEPENDENCY/SUBSTANCEABUSE PROGRAM, SOME INFORMATION MAY BE OMITTED. This clinical summary was aggregated from multiple sources. Caution should be exercised in using it in the provision of clinical care. This summary normalizes information from multiple sources, and as a consequence, information in this document may materially change the coding, format and clinical context of patient data. In addition, data may be omitted in some cases. CLINICAL DECISIONS SHOULD BE BASED ON THE PRIMARY CLINICAL RECORDS. [facility] [employer] [facility] provides no warranty or guarantee of the accuracy or completeness of information in this document.
--- NOTE | 2023-06-20 13:56 | CT_ITS ---
[address] [address] Patient Name: CARLOS EDUARDO JHA MRN: [id number] date: 1980 Sex: F Assigned Patient Location: ER Current Patient Location: .[facility] Accession/Order Number: [id number] Exam Date: 06/20/2023 14:40 Report Date: 06/20/2023 15:11 At the request of: PRETTY ANGEL Procedure: CT soft tissue neck w con EXAM: CT soft tissue neck w con CLINICAL INDICATION: r/o abscess COMPARISON: None TECHNIQUE: Standard enhanced CT of the neck following intravenous administration of 75 cc of Isovue 370. Axial sections with coronal and sagittal reformats were obtained. Dose reduction techniques were achieved by using automated exposure control and/or adjustment of mA and/or kV according to patient size and/or use of iterative reconstruction technique. FINDINGS: Lymph Nodes/Soft Tissues: Subtly peripherally enhancing 2.1 x 2.8 x 0.9 cm phlegmonous collection/abscess in the left sublingual space abuts the lingual cortex of the left mandibular body. There is pronounced surrounding soft tissue edema which extends into the left data entry assistant space and thickens the left platysma muscle. Edematous enlargement of the left masseter and medial pterygoid muscles. Prominent and mildly enlarged reactive left cervical chain lymph nodes. Musculoskeletal: The left second mandibular molar has been extracted. No cortical erosions. Periapical lucency of the right maxillary lateral incisor. Multilevel cervicothoracic spondylotic changes. Nasopharynx: Normal. Suprahyoid Neck: Mild left parapharyngeal and left pharyngeal mucosal edema. Oropharynx, oral cavity, and retropharyngeal spaces are clear and symmetric. Infrahyoid Neck: Larynx, hypopharynx, and supraglottic area are clear and symmetric. Vocal cords are symmetric. Parotid Glands: Normal. Submandibular Glands: Normal. Thyroid: Normal. Orbits: Normal. Paranasal Sinuses: Well-aerated. Mastoid Air Cells: Left mastoid effusion. Right mastoid air cells are well-aerated. Skull Base: Normal. Thoracic Inlet: Partially visualized at least moderate right pleural effusion. Vascular Structures: Symmetric and patent. CT/CT soft tissue neck w con IMPRESSION: 1. Subtly peripherally enhancing 2.1 x 2.8 x 0.9 cm phlegmonous collection/abscess in the left sublingual space abuts the lingual cortex of the left mandibular body. This is adjacent to the left second mandibular molar extraction site. Pronounced surrounding soft tissue edema extends into the left data entry assistant space and thickens the left platysma muscle. Edematous enlargement of the left masseter and medial pterygoid muscles. 2. Prominent and mildly enlarged reactive left cervical chain lymph nodes. 3. Mild left parapharyngeal and left pharyngeal mucosal edema. 4. Partially visualized at least moderate right pleural effusion. Electronically authenticated by: MADAY LAL Date: 06/20/2023 15:11
--- NOTE | 2023-06-20 13:58 | ED_ITS ---
HPI - Dental/Oral General Chief complaint: Dental/Oral Stated complaint: MOUTH PAIN Time Seen by Provider: 06/20/23 13:42 Source: patient Mode of arrival: walk-in Limitations: no limitations History of Present Illness HPI Narrative: 43 year old female presents to the ED for left lower dental pain, facial swelling. She has been taking clindamycin for 2 days with no improvement. She was on amoxicillin prior to the clindamycin. Onset was a few weeks ago. She had a tooth extracted 05/16/23. She was evaluated at [facility] 06/16/23 and here at [facility] 06/18/23 for the same. States her dentist advised she come to the ED for IV antibiotics. Denies fever, chills, SOB. She has increased pain with movement of her jaw. She is diabetic. She is a smoker. Related Data Home Medications Medication Instructions Recorded Confirmed atorvastatin 80 mg tablet 80 mg PO BEDTIME 12/07/22 12/07/22 duloxetine 60 mg capsule,delayed 60 mg PO DAILY 12/07/22 12/07/22 release ergocalciferol (vitamin D2) 1,250 1,250 mcg PO .weekly 12/07/22 12/07/22 mcg (50,000 unit) capsule fluoxetine 20 mg capsule 20 mg PO DAILY 12/07/22 12/07/22 glipizide 10 mg tablet 10 mg PO BID 12/07/22 12/07/22 glipizide 5 mg tablet, extended 5 mg PO DAILY 12/07/22 12/07/22 release 24 hr insulin glargine 100 unit/mL (3 60 unit subcut DAILY 12/07/22 12/07/22 mL) subcutaneous pen (Lantus Solostar U-100 Insulin) lisinopril 40 mg tablet 40 mg PO DAILY 12/07/22 12/07/22 Allergies Allergy/AdvReac Type Severity Reaction Status Date / Time No Known Drug Allergies Allergy Verified 06/18/23 22:02 Review of Systems ROS Constitutional Denies: fever or chills Eyes Denies: change in vision or blurry vision Ears, nose, mouth, and throat Reports: mouth pain; Denies: throat pain, neck pain or swelling of lips/tongue Cardiovascular Denies: chest pain Respiratory Denies: shortness of breath or cough Gastrointestinal Denies: nausea or vomiting Musculoskeletal Denies: back pain or neck pain Integumentary/Breast Denies: rash Neurological Reports: headache; Denies: numbness in extremities or dizziness Allergic/Immunologic Reports: facial swelling; Denies: tongue swelling PFSH PFSH Social History Smoking status: Heavy tobacco smoker Exam Constitutional Vital Signs, click to edit/add: Last Vital Signs Temp 98.1 F 06/20/23 12:57 Pulse 91 H 06/20/23 12:57 Resp 20 06/20/23 12:57 BP 191/93 H 06/20/23 12:57 Pulse Ox 98 06/20/23 12:57 O2 Del Method Room Air 06/20/23 12:57 Common normals: no apparent distress and oriented x3 General appearance: cooperative HENMT Face and sinus: other (Swelling left jaw area. Tender, firm area palpable to lower jaw. ) External ear: external ears normal Throat: posterior oropharynx normal and uvula midline; no uvular edema Other: Several missing teeth. Ulcerations noted to gum tissue of two lower teeth. No drainage, bleeding. No drainable abscess. Limited ROM to jaw due to pain. No swelling to floor of mouth. Pt handling secretions well, speaking in full sentences. Eye Common normals: conjunctivae normal and no scleral icterus Neck & C-Spine Common normals: supple and no meningeal signs General: lymphadenopathy Chest Chest: symmetrical chest wall rise Respiratory Common normals: normal respiratory effort Effort & inspection: able to speak in complete sentences Cardio Common normals: regular rate and regular rhythm Neuro Common normals: oriented x3 Sensorium/orientation: awake and alert Speech: speech normal Gait (neuro): normal gait Course Vital Signs Vital signs: Vital Signs Temperature 98.1 F 06/20/23 12:57 Pulse Rate 91 H 06/20/23 12:57 Respiratory Rate 20 06/20/23 12:57 Blood Pressure 191/93 H 06/20/23 12:57 Pulse Oximetry 98 06/20/23 12:57 Oxygen Delivery Method Room Air 06/20/23 12:57 Temperature 98.1 F 06/20/23 12:57 Pulse Rate 91 H 06/20/23 12:57 Respiratory Rate 20 06/20/23 12:57 Blood Pressure 191/93 H 06/20/23 12:57 Pulse Oximetry 98 06/20/23 12:57 Oxygen Delivery Method Room Air 06/20/23 12:57 MDM - Dental/Oral MDM Narrative Medical decision making narrative: WBC count was 20.7. CT scan showed concern for phlegmon vs abscess of the left sublingual space with soft tissue edema that extends into the left boiler helper space and thickens the left platysma muscle. The patient was started on IV antibiotics. [facility] does not have the specialty to care for this patient. She will go to [facility]. Dr. Oc Joseph accepted the patient for further evaluation and treatment. She will go to the ED. The patient was in agreement with the transfer. Differential Diagnosis Differential diagnosis: Likely gingival abscess, dental caries, toothache, dental abscess and other (Fidel's Angina) Medical Records Attestation: I reviewed the patient's medical records. Lab Data Attestation: I reviewed the patient's lab results. Labs: Lab Results 06/20/23 Range/Units 14:19 WBC 20.7 H (4.0-11.0) 10^3/uL RBC 4.05 L (4.20-5.40) 10^6/uL Hgb 12.2 (12.0-16.0) g/dL Hct 36.0 (36.0-48.0) % MCV 88.9 (81.0-99.0) fL MCH 30.1 (26.7-34.0) pg MCHC 33.9 (29.9-35.2) g/dL RDW 13.0 (11.0-15.0) % Plt Count 413 (150-450) 10^3/uL MPV 10.1 (9.5-13.5) fL Neut % (Auto) 86.7 H (43.0-75.0) % Lymph % (Auto) 6.6 L (20.5-60.0) % [place] % (Auto) 6.0 (1.7-12.0) % Eos % (Auto) 0.1 L (0.9-7.0) % Baso % (Auto) 0.3 (0.2-2.0) % Neut # (Auto) 17.9 H (1.4-6.5) 10^3/uL Lymph # (Auto) 1.4 (1.2-3.8) 10^3/uL [place] # (Auto) 1.2 H (0.3-0.8) 10^3/uL Eos # (Auto) 0.0 (0.0-0.7) 10^3/uL Baso # (Auto) 0.1 (0.0-0.1) 10^3/uL Abs Immat Gran (auto) 0.07 H (0.00-0.03) 10^3/uL Imm/Tot Granulo (auto) 0.3 (0.0-0.5) % Sodium 131 L (136-145) mmol/L Potassium 4.2 (3.5-5.1) mmol/L Chloride 97 L (98-107) mmol/L Carbon Dioxide 26.2 (21.0-32.0) mmol/L Anion Gap 12.0 BUN 22.0 H (7.0-18.0) mg/dL Creatinine 1.34 H (0.55-1.02) mg/dL Est GFR ( Amer) 52 L (>=60) Est GFR (Non-Af Amer) 43 L (>=60) BUN/Creatinine Ratio 16.4 Glucose 235 H (74-106) mg/dL Calcium 8.8 (8.5-10.1) mg/dL Imaging Data CT neck: Attestation: I have reviewed the pertinent imaging results. Radiologist's impression: ITS Impressions Soft Tissue Neck CT 06/20/23 13:56 IMPRESSION: 1. Subtly peripherally enhancing 2.1 x 2.8 x 0.9 cm phlegmonous collection/abscess in the left sublingual space abuts the lingual cortex of the left mandibular body. This is adjacent to the left second mandibular molar extraction site. Pronounced surrounding soft tissue edema extends into the left boiler helper space and thickens the left platysma muscle. Edematous enlargement of the left masseter and medial pterygoid muscles. 2. Prominent and mildly enlarged reactive left cervical chain lymph nodes. 3. Mild left parapharyngeal and left pharyngeal mucosal edema. 4. Partially visualized at least moderate right pleural effusion. Electronically authenticated by: MADAY LAL Date: 06/20/2023 15:11 Discharge Plan Discharge Chief Complaint: Dental/Oral Clinical Impression: Abscess of sublingual space Patient Disposition: [facility] Time of Disposition Decision: 16:30 Discharge Location: [facility] Condition: Good Mode of Transportation: EMS
[2023-06-20] MEDS: MORPHINE SULFATE 4 MG/ML VIAL IV ×2 (14:33→17:51)
[2023-06-20] MEDS: ONDANSETRON PF 4 MG/2 ML VIAL IV (14:33)
[2023-06-20 14:34] LABS: Basophils Absolute Auto 0.1 10^3/uL (0.0-0.1); Basophils Percent Auto 0.3 % (0.2-2.0); Eosinophils Percent Auto 0.1 % (0.9-7.0); Hemoglobin 12.2 g/dL (12.0-16.0); Immature Granulocytes Abs Auto 0.07 10^3/uL (0.00-0.03); Immature Granulocytes Pct Auto 0.3 % (0.0-0.5); Lymphocytes Absolute Auto 1.4 10^3/uL (1.2-3.8); Lymphocytes Percent Auto 6.6 % (20.5-60.0); Mean Corpuscular HGB Conc 33.9 g/dL (29.9-35.2); Mean Corpuscular Hemoglobin 30.1 pg (26.7-34.0); Mean Corpuscular Volume 88.9 fL (81.0-99.0); Mean Platelet Volume 10.1 fL (9.5-13.5); Monocytes Absolute Auto 1.2 10^3/uL (0.3-0.8); Neutrophils Absolute Auto 17.9 10^3/uL (1.4-6.5); Neutrophils Percent Auto 86.7 % (43.0-75.0); Platelet Count 413 10^3/uL (150-450); Red Blood Count 4.05 10^6/uL (4.20-5.40); White Blood Count 20.7 10^3/uL (4.0-11.0)
[2023-06-20] MEDS: CLINDAMYCIN PHOSPHATE/D5W 900 MG/50 ML PIGGYBACK 100 MG IV (14:35)
[2023-06-20] MEDS: 0.9 % SODIUM CHLORIDE 1,000 ML 125 ML IV (14:35)
[2023-06-20 14:48] LABS: BUN Creatinine Ratio 16.4; Calcium 8.8 mg/dL (8.5-10.1); Carbon Dioxide 26.2 mmol/L (21.0-32.0); Chloride 97 mmol/L (98-107); Estimated GFR (African America 52 (>=60); Estimated GFR (Non-African Ame 43 (>=60); Glucose 235 mg/dL (74-106); Potassium 4.2 mmol/L (3.5-5.1); Sodium 131 mmol/L (136-145)
[2023-06-20] MEDS: AMPICILLIN SODIUM/SULBACTAM NA 3 GM in 0.9 % SODIUM CHLORIDE 100 ML IV (15:56)
[2023-06-20] MEDS: DEXAMETHASONE SOD PHOS 10 MG/ML VIAL IV (17:51)
[2023-06-20 18:00] VITALS: BP 163/83; PULSE 90; RESP 18; O2SAT 95
== END 2023-06-20 20:45 | disposition short-term general hospital (02) ==
PROVIDERS: Nurse Practitioner Family; Emergency Provider Emergency Medicine; PCP Family Medicine
DX: K12.2 Cellulitis and abscess of mouth (principal); E11.9 Type 2 diabetes mellitus without complications; F17.210 Nicotine dependence, cigarettes, uncomplicated; Z79.899 Other long term (current) drug therapy; Z79.4 Long term (current) use of insulin
CPT/HCPCS: 36415; 70491; 80048; 85025; 96365; 96367; 96375; 96376; 99285; J1100; Q9967

== ENCOUNTER 2024-07-09 17:04 | Emergency (ER) | payer OTHER, SELFPAY ==
[2024-07-09 17:11] VITALS: BP 151/77; PULSE 86; TEMP 36.7; O2SAT 99; BMI 34.4
[2024-07-09 17:22] VITALS: PULSE 92
--- NOTE | 2024-07-09 17:25 | ED.SOB1 ---
HPI - SOB/Dyspnea General Chief Complaint: Shortness of Breath/Dyspnea Stated Complaint: DOC SENT, ABDOMINAL FLUID, HIGH BP, DIFF BREATHING Time Seen by Provider: 07/09/24 17:06 Source: patient Mode of arrival: walk-in History of Present Illness HPI Narrative: Patient is a 44-year-old female with a history of type 1 insulin-dependent diabetes who presents to the emergency department at the recommendation of her primary care provider, nurse practitioner at [facility]. This provider called report to the emergency department stating that the patient has a history of medical noncompliance, she was admitted 2 months ago for fluid overload and nephrotic syndrome to [facility] in [place]. Several weeks ago she was evaluated at the [place] emergency department, patient either signed out AGAINST MEDICAL ADVICE or was discharged home and encouraged to take 4 mg of Bumex a day. Patient is also prescribed spironolactone. She states for the last 2 weeks she has had increasing swelling to the abdomen and lower extremities. She has not had any redness or drainage. No fevers or vomiting. She states she does feel more short of breath. Her nurse practitioner reviewed her labs from [place] emergency department showing that the patient had an elevated troponin, BNP and worsening chronic kidney disease. Patient has visual loss in the right eye from diabetic retinopathy. She states she has occasionally had tightness in her chest but no significant chest pain. She has had shortness of breath on exertion. Related Data Home Medications ?Medication ?Instructions ?Recorded ?Confirmed atorvastatin 80 mg tablet 80 mg PO BEDTIME 12/07/22 06/20/23 duloxetine 60 mg capsule,delayed 60 mg PO DAILY 12/07/22 06/20/23 release ergocalciferol (vitamin D2) 1,250 1,250 mcg PO .weekly 12/07/22 06/20/23 mcg (50,000 unit) capsule fluoxetine 20 mg capsule 20 mg PO DAILY 12/07/22 06/20/23 glipizide 10 mg tablet 10 mg PO BID 12/07/22 06/20/23 insulin glargine 100 unit/mL (3 60 unit subcut DAILY 12/07/22 06/20/23 mL) subcutaneous pen (Lantus Solostar U-100 Insulin) lisinopril 40 mg tablet 40 mg PO DAILY 12/07/22 06/20/23 bumetanide 2 mg tablet 4 mg PO DAILY 07/09/24 07/09/24 carvedilol 6.25 mg tablet 6.25 mg PO Q12H 07/09/24 07/09/24 Allergies Allergy/AdvReac Type Severity Reaction Status Date / Time No Known Drug Allergies Allergy Verified 07/09/24 17:11 Review of Systems ROS Constitutional Denies: fever or chills Ears, nose, mouth, and throat Denies: throat pain or nasal congestion Cardiovascular Reports: chest pain Respiratory Reports: shortness of breath; Denies: cough Gastrointestinal Denies: nausea or vomiting Musculoskeletal Denies: back pain Integumentary/Breast Denies: rash Neurological Denies: numbness in extremities or weakness in extremities Hematologic/Lymphatic Denies: easy bruising or easy bleeding PFSH PFSH Social History Smoking status: Heavy tobacco smoker Little interest or pleasure in doing things: not at all Feeling down, depressed, or hopeless: not at all Exam Narrative Exam Narrative: Gen.: Awake, alert, in no distress Head: Normocephalic, atraumatic ENT: Moist mucous membranes Respiratory: No respiratory distress, speaks in full sentences, diminished lung sounds to the right base Cardio: Regular rate and rhythm Gastrointestinal: Abdomen is soft and distended with fluid wave, no rigidity or tenderness Extremities: Moves extremities equally, 1+ pitting edema of the bilateral ankles. Calves are soft and nontender Psych: Normal mood and affect Neuro: No focal neuro deficit Skin: Warm, dry, intact Constitutional Vital Signs, click to edit/add: Last Vital Signs Temp 98.1 F 07/09/24 17:11 Pulse 86 07/09/24 17:11 Resp 22 H 07/09/24 17:11 BP 152/94 H 07/09/24 19:48 Pulse Ox 99 07/09/24 17:11 O2 Del Method Room Air 07/09/24 17:11 Course Vital Signs Vital signs: Vital Signs Temperature 98.1 F 07/09/24 17:11 Pulse Rate 86 07/09/24 17:11 Respiratory Rate 22 H 07/09/24 17:11 Blood Pressure 151/77 H 07/09/24 17:11 Pulse Oximetry 99 07/09/24 17:11 Oxygen Delivery Method Room Air 07/09/24 17:11 Temperature 98.1 F 07/09/24 17:11 Pulse Rate 86 07/09/24 17:11 Respiratory Rate 22 H 07/09/24 17:11 Blood Pressure 152/94 H 07/09/24 19:48 Pulse Oximetry 99 07/09/24 17:11 Oxygen Delivery Method Room Air 07/09/24 17:11 MDM - SOB/Dyspnea MDM Narrative Medical decision making narrative: On arrival to the emergency department, full septic workup was ordered for this patient, EKG shows T wave inversion and ST depression globally. She has no active chest pain in the ER. Laboratory studies reviewed and noted showing the patient is not in DKA, her blood sugars controlled however she has acute on chronic kidney failure as well as significantly elevated troponin and BNP. Repeat troponin has decreased slightly. Patient was given aspirin, heparin drip as well as Lasix for fluid overload. This patient is not appropriate to stay at this facility we have no cardiology or nephrology services. She was recently admitted at [facility] in [place] and she is agreeable to transfer. She was accepted to [facility] by the hospitalist, case discussed with Alesha Martin and the patient will be accepted to the intermediate floor to Dr. Castellanos. 2028: Patient is accepted for transfer, she is hemodynamically stable at this time. Critical care time 35 minutes SHARED APC VISIT, PHYSICIAN ATTESTATION: [id number] I performed a substantive part of the MDM during the patient?s E/M visit. I personally evaluated and examined the patient. I personally made or approved the documented management plan and acknowledge its risk of complications. Medical Records Attestation: I reviewed the patient's medical records. Lab Data Attestation: I reviewed the patient's lab results. Labs: Lab Results 07/09/24 07/09/24 Range/Units 17:30 18:46 WBC 15.6 H (4.0-11.0) 10^3/uL RBC 3.71 L (4.20-5.40) 10^6/uL Hgb 11.1 L (12.0-16.0) g/dL Hct 33.4 L (36.0-48.0) % MCV 90.0 (81.0-99.0) fL MCH 29.9 (26.7-34.0) pg MCHC 33.2 (29.9-35.2) g/dL RDW 13.1 (11.0-15.0) % Plt Count 474 H (150-450) 10^3/uL MPV 10.1 (9.5-13.5) fL Neut % (Auto) 84.1 H (43.0-75.0) % Lymph % (Auto) 8.8 L (20.5-60.0) % [place] % (Auto) 5.6 (1.7-12.0) % Eos % (Auto) 0.6 L (0.9-7.0) % Baso % (Auto) 0.5 (0.2-2.0) % Neut # (Auto) 13.2 H (1.4-6.5) 10^3/uL Lymph # (Auto) 1.4 (1.2-3.8) 10^3/uL [place] # (Auto) 0.9 H (0.3-0.8) 10^3/uL Eos # (Auto) 0.1 (0.0-0.7) 10^3/uL Baso # (Auto) 0.1 (0.0-0.1) 10^3/uL Abs Immat Gran (auto) 0.06 H (0.00-0.03) 10^3/uL Imm/Tot Granulo (auto) 0.4 (0.0-0.5) % PT 10.9 (9.0-11.6) sec INR 1.03 VBG pH 7.367 (7.330-7.430) VBG pCO2 43.8 (40.0-52.0) mmHg Sodium 139 (136-145) mmol/L Potassium 4.8 (3.5-5.1) mmol/L Chloride 104 (98-107) mmol/L Carbon Dioxide 25.6 (21.0-32.0) mmol/L Anion Gap 14.2 BUN 46.0 H (7.0-18.0) mg/dL Creatinine 2.76 H (0.55-1.02) mg/dL Est GFR ( Amer) 22 L (>=60 mL/min/1.73m^2) Est GFR (Non-Af Amer) 18 L (>=60 mL/min/1.73m^2) BUN/Creatinine Ratio 16.7 Glucose 152 H (74-106) mg/dL Lactate 1.2 (0.4-2.0) mmol/L Calcium 8.2 L (8.5-10.1) mg/dL Magnesium 1.8 (1.8-2.4) mg/dL Total Bilirubin 0.2 (0.2-1.0) mg/dL AST 84 H (15-37) U/L ALT 27 (14-59) U/L Alkaline Phosphatase 58 (46-116) U/L Troponin I High Sens 91741.2 H* 25000.0 H* (4.0-51.3) pg/mL NT-Pro-B Natriuret Pep 81364.0 H* (<=450.0) pg/mL Total Protein 5.7 L (6.4-8.2) g/dL Albumin 2.1 L (3.4-5.0) g/dL Globulin 3.6 g/dL Albumin/Globulin Ratio 0.6 TSH 4.032 H (0.358-3.740) uIU/mL Acetone, Qual Negative (NEGATIVE) Imaging Data Chest x-ray: Attestation: I have reviewed the pertinent imaging results. ECG Data Attestation: I personally reviewed and interpreted this ECG as follows: Discharge Plan Discharge Chief Complaint: Shortness of Breath/Dyspnea Clinical Impression: Non-ST elevated myocardial infarction (non-STEMI), CHF (congestive heart failure), Acute kidney injury, Edema, peripheral Patient Disposition: [facility] Time of Disposition Decision: 20:31 Discharge location: [facility] Condition: Fair Mode of Transportation: EMS Prescriptions / Home Meds: No Action atorvastatin 80 mg tablet 80 mg PO BEDTIME duloxetine 60 mg capsule,delayed release(DR/EC) 60 mg PO DAILY ergocalciferol (vitamin D2) 1,250 mcg (50,000 unit) capsule 1,250 mcg PO .weekly glipizide 10 mg tablet 10 mg PO BID fluoxetine 20 mg capsule 20 mg PO DAILY insulin glargine [Lantus Solostar U-100 Insulin] 100 unit/mL (3 mL) insulin pen 60 unit SUBCUT DAILY lisinopril 40 mg tablet 40 mg PO DAILY carvedilol 6.25 mg tablet 6.25 mg PO Q12H bumetanide 2 mg tablet 4 mg PO DAILY Print Language: Hungarian Referrals: REYNALDO VILLA [Primary Care Provider] - 1 week
[2024-07-09 17:43] LABS: Basophils Absolute Auto 0.1 10^3/uL (0.0-0.1); Basophils Percent Auto 0.5 % (0.2-2.0); Eosinophils Absolute Auto 0.1 10^3/uL (0.0-0.7); Eosinophils Percent Auto 0.6 % (0.9-7.0); Hematocrit 33.4 % (36.0-48.0); Hemoglobin 11.1 g/dL (12.0-16.0); Immature Granulocytes Abs Auto 0.06 10^3/uL (0.00-0.03); Immature Granulocytes Pct Auto 0.4 % (0.0-0.5); Lymphocytes Absolute Auto 1.4 10^3/uL (1.2-3.8); Lymphocytes Percent Auto 8.8 % (20.5-60.0); Mean Corpuscular HGB Conc 33.2 g/dL (29.9-35.2); Mean Corpuscular Hemoglobin 29.9 pg (26.7-34.0); Mean Platelet Volume 10.1 fL (9.5-13.5); Monocytes Absolute Auto 0.9 10^3/uL (0.3-0.8); Monocytes Percent Auto 5.6 % (1.7-12.0); Neutrophils Absolute Auto 13.2 10^3/uL (1.4-6.5); Neutrophils Percent Auto 84.1 % (43.0-75.0); Platelet Count 474 10^3/uL (150-450); Red Blood Count 3.71 10^6/uL (4.20-5.40); Red Cell Distribution Width 13.1 % (11.0-15.0); White Blood Count 15.6 10^3/uL (4.0-11.0)
[2024-07-09 17:44] LABS: PCO2 VBG 43.8 mmHg (40.0-52.0); pH VBG 7.367 (7.330-7.430)
[2024-07-09 17:56] LABS: Acetone NEGATIVE (NEGATIVE)
[2024-07-09 17:58] LABS: INR 1.03; Prothrombin Time 10.9 sec (9.0-11.6)
[2024-07-09 18:03] LABS: Lactate/Lactic Acid 1.2 mmol/L (0.4-2.0)
[2024-07-09 18:20] LABS: Alanine Aminotransferase 27 U/L (14-59); Albumin Globulin Ratio 0.6; Albumin Level 2.1 g/dL (3.4-5.0); Alkaline Phosphatase 58 U/L (46-116); Anion Gap 14.2; Aspartate Amino Transferase 84 U/L (15-37); BUN Creatinine Ratio 16.7; Bilirubin Total 0.2 mg/dL (0.2-1.0); Calcium 8.2 mg/dL (8.5-10.1); Carbon Dioxide 25.6 mmol/L (21.0-32.0); Chloride 104 mmol/L (98-107); Estimated GFR (African America 22 (>=60 mL/min/1.73m^2); Estimated GFR (Non-African Ame 18 (>=60 mL/min/1.73m^2); Globulin 3.6 g/dL; Glucose 152 mg/dL (74-106); Potassium 4.8 mmol/L (3.5-5.1); Sodium 139 mmol/L (136-145); Total Protein 5.7 g/dL (6.4-8.2)
[2024-07-09 18:28] LABS: Magnesium 1.8 mg/dL (1.8-2.4); Thyroid Stimulating Hormone 4.032 uIU/mL (0.358-3.740)
[2024-07-09 18:33] LABS: Troponin I High Sensitivity 67159.2 pg/mL (4.0-51.3)
[2024-07-09 19:48] VITALS: BP 152/94
[2024-07-09] MEDS: HEPARIN SODIUM,PORCINE/D5W 25,000 UNIT/500 ML IV.SOLN 17.28 UNIT IV (19:48)
[2024-07-09] MEDS: ASPIRIN 81 MG TAB.CHEW 162 MG PO (19:48)
[2024-07-09] MEDS: FUROSEMIDE 40 MG/4 ML VIAL IVP (19:48)
[2024-07-09 20:49] VITALS: BP 152/72; PULSE 86; O2SAT 99
== END 2024-07-10 00:20 | disposition short-term general hospital (02) ==
PROVIDERS: Physician Assistant; Emergency Provider Emergency Medicine; PCP Family Medicine
DX: I21.4 Non-ST elevation (NSTEMI) myocardial infarction (principal); N17.9 Acute kidney failure, unspecified; I50.9 Heart failure, unspecified; E10.319 Type 1 diabetes mellitus with unspecified diabetic retinopathy without macular edema; Z79.4 Long term (current) use of insulin; Z79.84 Long term (current) use of oral hypoglycemic drugs; F17.200 Nicotine dependence, unspecified, uncomplicated
CPT/HCPCS: 36415; 71045; 80053; 81001; 82009; 82800; 83605; 83735; 83880; 84443; 84484; 85025; 85610; 87040; 93005; 96365; 96366; 96375; 99285; J1644; J1940